=== PATIENT | male | born 1955 | race Caucasian/White ===

== ENCOUNTER → 2019-11-10 | Outpatient (CLI) | payer MEDICARE, OTHER ==
[2019-11-10 10:52] LABS: HGB 13.5 gm/dL (13.0-17.5); MCH 29.4 pg (25.0-35.0); MCHC 31.4 g/dL (31.0-37.0); MCV 93.7 fL (80.0-100.0); Mean Platelet Volume 8.5; Platelet Count 249 k/uL (150-450); RBC 4.59 m/uL (4.30-5.90); RDW 13.9 % (11.5-15.5); WBC 8.2 k/uL (3.8-10.6)
[2019-11-10 11:01] LABS: African American GFR (CKD) >90 (>60 ml/min/1.73 sqM); Blood Urea Nitrogen 16 mg/dL (9-20); Magnesium 1.6 mg/dL (1.6-2.3); Non-African American GFR(CKD) >90 (>60 ml/min/1.73 sqM)
== END | disposition home or self-care (01) ==
LOC: LABPAT 09:44
PROVIDERS: ATTEND Internal Medicine Cardiovascular Disease
DX: Z01.818 Encounter for other preprocedural examination (principal); I20.0 Unstable angina
CPT/HCPCS: 36415; 82565; 83735; 84520; 85027

== ENCOUNTER → 2019-11-11 | Day surgery (SDC) | payer MEDICARE, OTHER ==
[2019-11-10 11:01] VITALS: BMI 41.9
[~2019-11-11] MED LIST: ALPRAZolam 0.25 MG TAB PO PRN; ALPRAZolam 0.5 MG TAB PO PRN; ASPIRIN 325 MG TAB PO STA; ATORVASTATIN 80 MG TAB PO SCH; ATORVASTATIN 80 MG TAB PO STA; IOPAMIDOL-370 100ML BTL INJ ONE; ISOSORBIDE MONONITRATE ER 30 MG TAB.ER.24H PO SCH; LIDOCAINE 1% INJ 10MG/ML (20 ML MDV) ONE; LIDOCAINE 1% INJ 10MG/ML (20 ML MDV) SQ ONE; METOPROLOL SUCCINATE (ER) 50 MG TAB.ER.24H PO SCH; NITROGLYCERIN SL TABS 0.4 MG TAB SUBLINGUAL PRN; RX INFO: IV CONTRAST WAS GIVEN 1 EACH MISC MISCELLANE PRN; SODIUM CHLORIDE 0.9% 1,000 ML IV ONE; SODIUM CHLORIDE 0.9% 1,000 ML IV SCH; SODIUM CHLORIDE 0.9% 1,000 ML in EMPTY BAG 1 BAG IV ONE; fentaNYL (PF) 50 MCG/ML 2 ML AMP IV ONE; fentaNYL (PF) 50 MCG/ML 2 ML AMP ONE; glipiZIDE 5 MG TAB PO STA
[2019-11-11 07:01] LABS: Glucose,Whole Blood 165 mg/dL (75-99)
[2019-11-11 07:02] VITALS: RESP 16; TEMP 98.5
[2019-11-11 07:21] LABS: ALT 26 U/L (4-49); AST 28 U/L (17-59); Cholesterol 249 mg/dL (<200); HDL Cholesterol 43 mg/dL (40-60); LDL Cholesterol,Calculated 163 mg/dL (0-99); Triglycerides 214 mg/dL (<150)
[2019-11-11] MEDS: MIDAZOLAM 2 MG/2 ML VIAL IV ONE ×2 (07:40→07:45)
--- NOTE | 2019-11-11 09:25 | LTR ---
DATE OF SERVICE: 11/11/2019 RE: Krishna Bates Dear Maribel; I performed cardiac catheterization on Krishna Bates. A detail catheterization note is enclosed for your records. This is a 64-year-old gentleman who is referred to me for evaluate stable angina, he has severe three-vessel coronary artery disease. I am going to consult cardiothoracic surgeon for bypass surgery. Thank you for giving me the privilege to participate in the care of this pleasant gentleman. Sincerely, MD AMADO Guerra / JANA: [id number] /
--- NOTE | 2019-11-11 09:25 | CC ---
CARDIAC CATHETERIZATION REPORT CARDIAC CATHETERIZATION NOTE: INDICATION: Unstable angina. PROCEDURE NOTE: After obtaining informed consent, left heart catheterization and coronary angiogram are performed via the right femoral artery using standard Belkis catheters. Patient tolerated the procedure well without any obvious immediate complications. He received moderate conscious sedation. Total sedation time was 16 minutes. FINDINGS: HEMODYNAMICS: Left ventricular end-diastolic pressure is 15 mm. There is no significant gradient across the aortic valve. LEFT VENTRICULOGRAM: Left ventriculogram is not performed. ANGIOGRAPHIC DATA: LEFT MAIN CORONARY ARTERY: Left main coronary artery appears calcified but is free of significant stenosis. It is a normal-sized vessel, divides into left anterior descending coronary artery and circumflex coronary artery. Circumflex coronary artery is a codominant system, shows an area of 50%-60% ostial stenosis and the first OM branch has a 90% ostial stenosis. LAD shows moderate diffuse disease with a 70%-80% focal stenosis in the midportion. The right coronary artery is a large dominant vessel. There are collaterals to the distal RCA from the circumflex coronary artery. There is a focal 95% stenosis in the mid RCA and a moderate area of diffuse disease more proximally. CONCLUSION: Three-vessel coronary artery disease as described above. Normal LV systolic function based on echocardiogram. PLAN: I am going to consult cardiothoracic surgeon to evaluate him for surgical revascularization. In the meantime, I will treat him with optimal medical therapy with aspirin, nitrates, beta blockers and start him on statins and Rui Inhibitors. MMODL / IJN: [id number] /
[2019-11-11 11:47] LABS: Appearance,Urine Clear (Clear); Bilirubin,Urine Negative (Negative); Blood,Urine Negative (Negative); Color,Urine Yellow; Glucose,Urine (UA) 4+ (Negative); Ketones,Urine Negative (Negative); Leukocyte Esterase,Urine Negative (Negative); Nitrite,Urine Negative (Negative); PH, Urine 6.5 (5.0-8.0); Protein,Urine Negative (Negative); Specific Gravity,Urine 1.042 (1.001-1.035); Urobilinogen,Urine <2.0 mg/dL (<2.0)
[2019-11-11 11:50] LABS: Basophils # (A) 0.1 k/uL (0-0.2); Basophils % (A) 1 %; Eosinophils # (A) 0.2 k/uL (0-0.7); Eosinophils % (A) 4 %; HCT 41.6 % (39.0-53.0); HGB 13.7 gm/dL (13.0-17.5); Lymphocytes # (A) 1.9 k/uL (1.0-4.8); Lymphocytes % (A) 29 %; MCH 30.8 pg (25.0-35.0); MCV 93.6 fL (80.0-100.0); Mean Platelet Volume 8.3; Monocytes # (A) 0.3 k/uL (0-1.0); Monocytes % (A) 5 %; Neutrophils % (A) 61 %; Platelet Count 215 k/uL (150-450); RBC 4.44 m/uL (4.30-5.90); WBC 6.6 k/uL (3.8-10.6)
[2019-11-11 12:01] LABS: Partial Thromboplastin Time 24.7 sec (22.0-30.0); Prothrombin Time 10.3 sec (9.0-12.0)
[2019-11-11 12:18] LABS: ALT 24 U/L (4-49); AST 30 U/L (17-59); African American GFR (CKD) >90 (>60 ml/min/1.73 sqM); Albumin 4.1 g/dL (3.5-5.0); Alkaline Phosphatase 77 U/L (38-126); Anion Gap 7 mmol/L; Blood Urea Nitrogen 17 mg/dL (9-20); Carbon Dioxide 25 mmol/L (22-30); Chloride 105 mmol/L (98-107); Glucose 242 mg/dL (74-99); Magnesium 1.6 mg/dL (1.6-2.3); Non-African American GFR(CKD) >90 (>60 ml/min/1.73 sqM); Potassium 4.3 mmol/L (3.5-5.1); Sodium 137 mmol/L (137-145); Total Bilirubin 0.6 mg/dL (0.2-1.3); Total Protein 6.7 g/dL (6.3-8.2)
--- NOTE | 2019-11-11 12:57 | XR ---
EXAMINATION TYPE: XR chest 2V DATE OF EXAM: 11/11/2019 COMPARISON: NONE TECHNIQUE: PA and lateral views submitted. HISTORY: Preop FINDINGS: The lungs are clear and there is no pneumothorax, pleural effusion, or focal pneumonia. Atheroscler otic change of the aorta. Biapical pleural thickening. Heart size normal. Subsegmental changes at bot h lung bases. Coarsened interstitium. Pleural-based thickening noted bilaterally greater on the left. IMPRESSION: 1. Basilar atelectasis favored over pneumonia correlate clinically. Coarsened interstitium could repr esent chronic interstitial lung disease rather than venous congestion or interstitial pneumonitis cor relate clinically.
--- NOTE | 2019-11-11 13:53 | US ---
EXAMINATION TYPE: US carotid duplex BILAT DATE OF EXAM: 11/11/2019 COMPARISON: NONE CLINICAL HISTORY: Pre-Op Cardiac Surgery. Preop heart surgery EXAM MEASUREMENTS: RIGHT: Peak Systolic Velocity (PSV) cm/sec ----- Right CCA: 71.1 ----- Right ICA: 108.1 ----- Right ECA: 114.5 ICA/CCA ratio: 1.5 RIGHT: End Diastole cm/sec ----- Right CCA: 15.9 ----- Right ICA: 16.0 ----- Right ECA: 14.4 LEFT: Peak Systolic Velocity (PSV) cm/sec ----- Left CCA: 79.0 ----- Left ICA: 80.6 ----- Left ECA: 155.5 ICA/CCA ratio: 1.0 LEFT: End Diastole cm/sec ----- Left CCA: 24.1 ----- Left ICA: 28.9 ----- Left ECA: 15.6 VERTEBRALS (direction of flow): Right Vertebral: Antegrade Left Vertebral: Antegrade Rhythm: Normal No significant stenosis seen IMPRESSION: 1. No significant hemodynamic stenosis. There is intimal thickening and areas of focal atheroscleroti c plaque 2. Incidental note made of thyroid nodules consider dedicated thyroid ultrasound. Criteria for Assigning % of Stenosis / Diameter reduction (Estimation based on the indirect measurements of the internal carotid artery velocities (ICA PSV). 1. Normal (no stenosis)=ICA PSV < 125 cm/s: ratio < 2.0: ICA EDV<40 cm/s. 2. Less than 50% stenosis=ICA PSV < 125 cm/s: ratio < 2.0: ICA EDV<40 cm/s. 3. 50 to 69% stenosis=ICA PSV of 125 to 230 cm/s: ration 2.0 ? 4.0: ICA EDV 40-100 cm/s. 4. Greater than 70% stenosis to near occlusion= ICA PSV > 230 cm/s: ratio > 4.0: ICA EDV > 100 cm/s. 5. Near occlusion= ICA PSV velocities may be low or undetectable: variable ratio and ICA EDV. 6. Total occlusion=unable to detect flow.
[2019-11-11 14:27] VITALS: BP 156/83; PULSE 78
--- NOTE | 2019-11-11 16:30 | P.GSCN ---
History of Present Illness Consult date: 11/11/19 Reason for Consult: Symptomatic multivessel coronary artery disease, unstable angina, evaluation for myocardial revascularization surgery. Requesting physician: Vick Iqbal History of present illness: This is a 64-year-old who is followed by Dr. Villanueva on a patient bases. He has a past medical history significant for hypertension, hyperlipidemia, diabetes mellitus type 2 in which he takes metformin, obesity, osteoarthritis and current every day smoker. Recently, the patient reports that he has been having some chest pain with activity. During the episodes of chest pain he has also had some shortness of breath and was relieved with periods of rest. He denies any complaints of nausea, vomiting, recent fever, chills, presyncope, syncope, orthopnea or edema. Due to his symptoms he sought medical attention at his primary care office and was subsequently referred to Dr. Iqbal from [facility]. A 2-D echocardiogram was completed yesterday 11/10/[address] Iqbal [address] office which showed the patient's left ventricle to be normal in size with a normal systolic function, intermediate diastolic dysfunction, an ejection fraction of 60%, mild mitral valve regurgitation, and mild tricuspid valve r egurgitation. Given the patient's multiple coronary artery risk factors and symptoms suggestive of unstable angina, he was recommended to undergo an elective heart catheterization which was performed today 11/11/2019. The heart catheterization results demonstrated a 50-60% ostial stenosis of his circumflex coronary artery, a 90% ostial stenosis of his obtuse marginal #1 coronary artery, a 70-80% focal stenosis in the midportion of his left anterior descending coronary artery and a 95% stenosis to his mid right coronary artery. The heart catheterization results were reviewed with the patient and his daughter by Dr. Iqbal and due to the findings on the cardiac catheterization a consult was placed to Dr. Valentin Scales for further evaluation and treatment recommendations including myocardial revascularization surgery. Review of Systems A 14 point review of systems was completed and was negative except as mentioned in the HPI. Past Medical History Past Medical History: Chest Pain / Angina, Diabetes Mellitus, Hyperlipidemia, Hypertension, Osteoarthritis (OA) Additional Past Medical History / Comment(s): panic attack History of Any Multi-Drug Resistant Organisms: None Reported Past Surgical History: Hernia Repair (Bilateral Inguinal hernia repairs), Joint Replacement Additional Past Surgical History / Comment(s): hemorrhoidectomy, rosa knee replacements Past Anesthesia/Blood Transfusion Reactions: No Reported Reaction Additional Psychological History / Comment(s): History of a panic attack around 2-3 years ago Smoking Status: Current every day smoker (Smokes about a pack of cigarettes every 1-2 days) Past Alcohol Use History: None Reported Past Drug Use History: None Reported - Past Family History Mother Family Medical History: Neurologic Disorder (Alzheimer's) Father Additional Family Medical History / Comment(s): Father from a work- related injury. Medications and Allergies Home Medications Medication Instructions Recorded Confirmed Type Aspirin 81 mg PO DAILY 11/10/19 11/11/19 History Losartan Potassium [Cozaar] 100 mg PO DAILY 11/10/19 11/11/19 History Meloxicam [Mobic] 7.5 mg PO DAILY 11/10/19 11/11/19 History Nitroglycerin Sl Tabs [Nitrostat] 0.4 mg SUBLINGUAL Q5M PRN 11/10/19 11/10/19 History metFORMIN HCL [Glucophage] 1,000 mg PO BID 11/10/19 11/11/19 History Atorvastatin [Lipitor] 80 mg PO HS 11/11/19 11/11/19 History Isosorbide Mononitrate ER [Imdur] 30 mg PO DAILY 11/11/19 11/11/19 History Metoprolol Succinate [Toprol XL] 50 mg PO DAILY 11/11/19 11/11/19 History Allergies Allergy/AdvReac Type Severity Reaction Status Date / Time No Known Allergies Allergy Verified 11/10/19 10:33 Surgical - Exam Vital Signs Temp Pulse Resp BP Pulse Ox 98.5 F 87 16 157/88 98 11/11/19 06:49 11/11/19 06:49 11/11/19 06:49 11/11/19 06:49 11/11/19 06:49 - General well developed, well nourished, no distress, no pain, obese - Eyes PERRL, normal ocular movement, no icteric - ENT Edentulous normal pinna, normal nares, normal mucosa, no hearing loss, no congestion - Neck no masses, no bruits, trachea midline, no venous distension - Respiratory Lung sounds are essentially clear throughout. No wheezes, rhonchi or crackles. Respirations are symmetrical and nonlabored. - Cardiovascular Regular rhythm and rate. S1 and S2 present, negative for S3, gallop or murmur. Peripheral pulses palpable. No edema present. - Abdomen Abdomen is soft, nontender and nondistended. Active bowel sounds present in all 4 abdominal quadrants. No guarding or rigidity. No organomegaly appreciated. - Genitourinary Deferred - Rectum Deferred - Integumentary no rash, no growths, no abnormal pigmentation - Neurologic Cranial nerves II through XII intact. normal coordination, normal sensation - Musculoskeletal normal gait, normal posture - Psychiatric oriented to time, oriented to person, oriented to place, speech is normal, memory intact Results - Labs 11/11/19 11:20 11/11/19 11:20 Abnormal Lab Results - Last 24 Hours (Table) 11/11/19 11/11/19 Range/Units 06:58 07:00 POC Glucose (mg/dL) 165 H (75-99) mg/dL Triglycerides 214 H (<150) mg/dL Cholesterol 249 H (<200) mg/dL LDL Cholesterol, Calc 163 H (0-99) mg/dL Diabetes panel 11/11/19 Range/Units 07:00 AST 28 (17-59) U/L ALT 26 (4-49) U/L Triglycerides 214 H (<150) mg/dL HDL Cholesterol 43 (40-60) mg/dL Adrenal panel 11/11/19 Range/Units 07:00 AST 28 (17-59) U/L ALT 26 (4-49) U/L - Imaging Additional studies: The cardiac catheterization films were reviewed by Dr. Valentin Scales. Assessment and Plan Assessment: 1. Symptomatic multivessel coronary artery disease 2. Unstable angina 3. Hypertension 4. Hyperlipidemia 5. Diabetes mellitus type 2, on metformin at home 6. Osteoarthritis 7. Current every day smoker Plan: The patient was seen and examined at his bedside in the extended stay unit. His chart and diagnostics were reviewed. The usual preoperative course of myocardia l revascularization surgery was discussed in detail with the patient and his daughter, all questions were answered. His case was discussed in detail with Dr. Valentin Scales from cardiothoracic surgery. Preoperative testing was initiated as well as preoperative teaching, the patient was given a binder heart surgery: Road to a healthy heart. Continue to maximize medical therapy with aspirin, statin, ARB, beta js and imdur. Once the patient is able to ambulate. A 5 m walk test was completed by cardiac rehab, time 1:5.12 seconds, time 2: 4.16 seconds, time 3:3.93 seconds. Once his preoperative testing has been completed a STS risk score will be calculated and discussed with the patient by Dr. Scales. The patient was seen and examined by Dr. Valentin Scales, treatment options were discussed with the patient including risks and benefits of myocardial revascularization surgery. Knowing and understanding the risks of myocardial revascularization surgery he wishes to proceed with an elective coronary artery bypass grafting surgery which will be scheduled on 11/17/2019 to be performed by Dr. Scales. Thank you Dr. Iqbal for this consult and we will look for to working with you in the care of this patient. Time with Patient: Greater than 30
[2019-11-11 20:28] LABS: Hepatitis A Antibody IgM Non-Reactive (Non-Reactive); Hepatitis B Core IgM Non-Reactive (Non-Reactive); Hepatitis B Surface Antigen Non-Reactive (Non-Reactive); Hepatitis C IgG Antibody Non-Reactive (Non-Reactive)
--- NOTE | 2019-11-12 09:43 | CT ---
EXAMINATION TYPE: CT chest wo con DATE OF EXAM: 11/11/2019 COMPARISON: None HISTORY: Preoperative cardiac surgery CT DLP: 433.80 mGycm, Automated exposure control for dose reduction was used. CONTRAST: Performed injected with 0 mL of Isovue 300. TECHNIQUE: Axial images were obtained at 5 mm thick sections. Reconstructed images are reviewed on [employer] computer in the coronal plane. FINDINGS: Portion of the thyroid visualized is normal. No suspicious lung nodules or focal infiltrates are present. No enlarged mediastinal or hilar adenopathy is evident. The ascending aorta diameter at the level o f the main pulmonary artery is 2.6 cm. The main pulmonary artery diameter at the bifurcation is 2.5 cm. Coronary artery calcification is present. There is some fat in the paraspinal region at the lower lung field. No underlying suspicious masses identified. Limited CT sections are obtained through the upper abdomen. There is a 1.5 cm hyperdensity at the sup erior pole left kidney. IMPRESSIONS: 1. No suspicious acute changes. 2. Hyperdense area in the superior pole left kidney. Follow-up with ultrasound.
== END ==
LOC: CATHCVL 06:31
PROVIDERS: ATTEND Internal Medicine Cardiovascular Disease
DX: I25.110 Atherosclerotic heart disease of native coronary artery with unstable angina pectoris (principal); E11.9 Type 2 diabetes mellitus without complications; I10 Essential (primary) hypertension; E66.9 Obesity, unspecified; F41.0 Panic disorder [episodic paroxysmal anxiety]; E78.5 Hyperlipidemia, unspecified; M19.90 Unspecified osteoarthritis, unspecified site; F17.210 Nicotine dependence, cigarettes, uncomplicated; Z01.810 Encounter for preprocedural cardiovascular examination; Z79.84 Long term (current) use of oral hypoglycemic drugs; Z79.1 Long term (current) use of non-steroidal anti-inflammatories (NSAID); Z79.82 Long term (current) use of aspirin; Z79.899 Other long term (current) drug therapy; Z96.653 Presence of artificial knee joint, bilateral; Z98.890 Other specified postprocedural states; Z81.8 Family history of other mental and behavioral disorders; Z82.3 Family history of stroke; Z68.33 Body mass index [BMI] 33.0-33.9, adult
CPT/HCPCS: 94150; 93458; 86900; 86901; 80061; 80053; 80074; 84443; 83735; 84450; 84460; 85025; 85610; 85730; 86850; 86920; 81003; 87070; 83036; 71046; 93930; 93970; 93880; 71250; C1769 ×2; C1760; C1894; J2250; J2001; J3010; Q9967

== ENCOUNTER → 2019-11-12 | Outpatient (CLI) | payer MEDICARE, OTHER | END | disposition home or self-care (01) | LOC: RADUSWWP 10:34 | PROVIDERS: ATTEND Nurse Practitioner Family | DX: Z01.818 Encounter for other preprocedural examination (principal) | CPT/HCPCS: 93923 ==

== ENCOUNTER 2019-11-17 06:12 | Inpatient (IN) | payer MEDICARE, OTHER ==
[~2019-11-17 06:12] MED LIST changes: +ALBUMIN HUMAN 25% 50 ML IV ONE; +ALBUMIN HUMAN 5% 500 ML IVPB ONE; -ALPRAZolam 0.25 MG TAB PO PRN; -ALPRAZolam 0.5 MG TAB PO PRN; +ASPIRIN 325 MG TAB PO ONE; -ASPIRIN 325 MG TAB PO STA; +ATORVASTATIN 10 MG TAB PO ONE; -ATORVASTATIN 80 MG TAB PO SCH; -ATORVASTATIN 80 MG TAB PO STA; +CALCIUM CHLORIDE 100 MG/ML 10 ML SYRINGE IV ONE; +CHLORHEXIDINE GLUCONATE 15 ML CUP MUCOUS MEM ONE; +DEXTROSE 5% IN WATER 1,000 ML with POTASSIUM CHLORIDE 110 MEQ, MAGNESIUM SULFATE 16 MEQ... IV ONE; +DEXTROSE 5% IN WATER 1,000 ML with POTASSIUM CHLORIDE 25 MEQ, SODIUM CHLORIDE 2.5MEQ/ML... IRRIGATION ONE; +DILTIAZEM 125 MG in SODIUM CHLORIDE 0.9% 100 ML IV ONE; +HEPARIN SODIUM 1,000 UN/ML (10ML VL) IV ONE; +HEPARIN SODIUM,PORCINE 5,000 UNIT in SODIUM CHLORIDE 0.9% 500 ML 500 ML IV ONE; +INSULIN REGULAR 100 UNIT in SODIUM CHLORIDE 0.9% 100 ML IV ONE; -IOPAMIDOL-370 100ML BTL INJ ONE; -ISOSORBIDE MONONITRATE ER 30 MG TAB.ER.24H PO SCH; +LACTATED RINGERS 1,000 ML IV ONE; -LIDOCAINE 1% INJ 10MG/ML (20 ML MDV) ONE; -LIDOCAINE 1% INJ 10MG/ML (20 ML MDV) SQ ONE; +MAGNESIUM SULFATE MG 500 MG/ML IV ONE; +MANNITOL 25% 12.5 GM/50 ML VIAL IV ONE; -METOPROLOL SUCCINATE (ER) 50 MG TAB.ER.24H PO SCH; +METOPROLOL TARTRATE 12.5 MG TAB PO ONE; -NITROGLYCERIN SL TABS 0.4 MG TAB SUBLINGUAL PRN; +NITROGLYCERIN-D5W PMX 25 MG/250 ML BTL IV ONE; +NITROGLYCERIN-D5W PMX 50 MG in DEXTROSE/WATER 1 250ML.BAG IV ONE; +NOREPINEPHRINE 4 MG in SODIUM CHLORIDE 0.9% 250 ML IV ONE; +PAPAVERINE 360 MG in SODIUM CHLORIDE 0.9% 90 ML IV ONE; +PHENYLEPHRINE 10 MG/ML VIAL IV ONE; +PHENYLEPHRINE 40 MG in SODIUM CHLORIDE 0.9% 250 ML IV ONE; +PROTAMINE SULFATE 10 MG/ML 25 ML VIAL IV ONE; +PROTAMINE SULFATE 250 MG in EMPTY BAG 1 BAG IV ONE; -RX INFO: IV CONTRAST WAS GIVEN 1 EACH MISC MISCELLANE PRN; +SODIUM BICARB 8.4% 50 ML SYR (1 MEQ/ML) IV ONE; -SODIUM CHLORIDE 0.9% 1,000 ML IV SCH; -SODIUM CHLORIDE 0.9% 1,000 ML in EMPTY BAG 1 BAG IV ONE; +TRANEXAMIC ACID 2,000 MG in SODIUM CHLORIDE 0.9% 80 ML IV ONE; +VANCOMYCIN 1,000 MG VIAL MISCELLANE ONE; +ceFAZolin 1,000 MG in SODIUM CHLORIDE 0.9% IRRIGATIO 1,000 ML IRRIGATION ONE; +ceFAZolin 2,000 MG in SODIUM CHLORIDE 0.9% 30 ML IVPB ONE; -fentaNYL (PF) 50 MCG/ML 2 ML AMP IV ONE; -fentaNYL (PF) 50 MCG/ML 2 ML AMP ONE; -glipiZIDE 5 MG TAB PO STA; +propofoL 1,000 MG/100 ML VIAL IV ONE
[2019-11-17 06:40] LABS: Glucose,Whole Blood 136 mg/dL (75-99)
[2019-11-17] MEDS ORDERED: HEPARIN SODIUM,PORCINE 10,000 UNIT/ML 1 ML VIAL ONE (07:45)
[2019-11-17] MEDS ORDERED: MIDAZOLAM 2 MG/2 ML VIAL ONE (07:45)
[2019-11-17] MEDS ORDERED: SODIUM CHLORIDE 0.9% IRRIG 1,000 ML BTL IRRIGATION ONE (07:45)
[2019-11-17] MEDS ORDERED: fentaNYL (PF) 50 MCG/ML 50 ML VIAL ONE (07:45)
[2019-11-17] MEDS ORDERED: VECURONIUM 10 MG VIAL IV ONE (07:45)
[2019-11-17] MEDS ORDERED: fentaNYL (PF) 50 MCG/ML 2 ML AMP IVP ONE (07:45)
[2019-11-17] MEDS ORDERED: INSULIN REGULAR 100 UNIT/ML VIAL ONE (07:45)
[2019-11-17] MEDS ORDERED: AMIODARONE 50 MG/ML 3 ML VIAL IV ONE (07:45)
[2019-11-17] MEDS ORDERED: MIDAZOLAM 2 MG/2 ML VIAL IVP ONE (07:45)
[2019-11-17] MEDS ORDERED: PROTAMINE SULFATE 10 MG/ML 25 ML VIAL IV ONE (07:45)
[2019-11-17] MEDS ORDERED: ELECTROLYTE-R (PH 7.4) 1,000 ML IV.SOLN IV ONE (07:45)
[2019-11-17] MEDS ORDERED: NITROGLYCERIN-D5W PMX 50 MG/250 ML BOTTLE IV ONE (07:45)
[2019-11-17] MEDS ORDERED: LIDOCAINE 2% SYG (PF) 100 MG/5 ML ONE (07:45)
[2019-11-17] MEDS ORDERED: CALCIUM CHLORIDE 100 MG/ML 10 ML SYRINGE ONE (07:45)
[2019-11-17] MEDS ORDERED: MAGNESIUM SULFATE 4 MEQ/ML 10ML VIAL ONE (07:45)
[2019-11-17] MEDS ORDERED: fentaNYL (PF) 50 MCG/ML 2 ML AMP ONE (07:45)
[2019-11-17] MEDS ORDERED: PROPOFOL 10 MG/ML 20 ML VIAL IV ONE (07:45)
[2019-11-17 08:40] LABS: ABG Base Excess 1.1 mmol/L; ABG Glucose Whole Blood 144 mg/dL (75-99); ABG HCO3 27 mmol/L (21-25); ABG Hematocrit 38 % (34.0-46.0); ABG Ionized Calcium 4.4 mg/dL (4.5-5.3); ABG Lactic Acid Whole Blood 1.3 mmol/L (0.5-1.6); ABG Oxygen Saturation 99.3 % (94-97); ABG PCO2 45 mmHg (35-45); ABG PH 7.38 (7.35-7.45); ABG PO2 165 mmHg (83-108); ABG Potassium Whole Blood 4.1 mmol/L (3.4-4.5); ABG Sodium Whole Blood 140 mmol/L (135-146); ABG TCO2 28 mmol/L (19-24)
[2019-11-17 09:51] LABS: ABG Base Excess -0.8 mmol/L; ABG Glucose Whole Blood 148 mg/dL (75-99); ABG HCO3 26 mmol/L (21-25); ABG Hematocrit 38 % (34.0-46.0); ABG Ionized Calcium 4.4 mg/dL (4.5-5.3); ABG Lactic Acid Whole Blood 1.6 mmol/L (0.5-1.6); ABG Oxygen Saturation 99.4 % (94-97); ABG PCO2 53 mmHg (35-45); ABG PO2 202 mmHg (83-108); ABG Potassium Whole Blood 4.4 mmol/L (3.4-4.5); ABG Sodium Whole Blood 140 mmol/L (135-146); ABG TCO2 28 mmol/L (19-24)
[2019-11-17 10:55] LABS: ABG Base Excess -1.9 mmol/L; ABG Glucose Whole Blood 216 mg/dL (75-99); ABG HCO3 25 mmol/L (21-25); ABG Hematocrit 28 % (34.0-46.0); ABG Oxygen Saturation 96.2 % (94-97); ABG PCO2 50 mmHg (35-45); ABG PH 7.31 (7.35-7.45); ABG PO2 87 mmHg (83-108); ABG Sodium Whole Blood 133 mmol/L (135-146); ABG TCO2 26 mmol/L (19-24)
[2019-11-17 11:08] LABS: ABG Base Excess -2.8 mmol/L; ABG Glucose Whole Blood 243 mg/dL (75-99); ABG HCO3 23 mmol/L (21-25); ABG Hematocrit 27 % (34.0-46.0); ABG Oxygen Saturation 99.7 % (94-97); ABG PCO2 45 mmHg (35-45); ABG PH 7.32 (7.35-7.45); ABG PO2 300 mmHg (83-108); ABG Sodium Whole Blood 133 mmol/L (135-146); ABG TCO2 25 mmol/L (19-24)
[2019-11-17 11:47] LABS: ABG Base Excess -2.5 mmol/L; ABG Glucose Whole Blood 245 mg/dL (75-99); ABG HCO3 23 mmol/L (21-25); ABG Hematocrit 26 % (34.0-46.0); ABG Ionized Calcium 3.9 mg/dL (4.5-5.3); ABG Oxygen Saturation 99.8 % (94-97); ABG PCO2 45 mmHg (35-45); ABG PH 7.33 (7.35-7.45); ABG PO2 322 mmHg (83-108); ABG Sodium Whole Blood 135 mmol/L (135-146); ABG TCO2 25 mmol/L (19-24)
[2019-11-17 13:25] LABS: Glucose,Whole Blood 198 mg/dL (75-99)
[2019-11-17 14:06] LABS: ABG Lactic Acid Whole Blood 2.7 mmol/L (0.5-1.6); ABG Potassium Whole Blood 6.3 mmol/L (3.4-4.5)
[2019-11-17 14:07] LABS: ABG Lactic Acid Whole Blood 3.2 mmol/L (0.5-1.6); ABG Potassium Whole Blood 6.2 mmol/L (3.4-4.5)
[2019-11-17 14:08] LABS: ABG Lactic Acid Whole Blood 3.8 mmol/L (0.5-1.6)
[2019-11-17 14:32] LABS: Glucose,Whole Blood 129 mg/dL (75-99)
[2019-11-17] MEDS ORDERED: IPRATROPIUM-ALBUTEROL 3 ML NEB INHALATION PRN (14:37)
[2019-11-17] MEDS ORDERED: AMIODARONE 360 MG in DEXTROSE 5% IN WATER 200 ML IV PRN ×2 (14:37)
[2019-11-17] MEDS ORDERED: DEXTROSE 5% IN WATER 100 ML with AMIODARONE 150 MG IV PRN (14:37)
[2019-11-17] MEDS ORDERED: Phosphorus Replacement Protoco 1 EACH MISC MISCELLANE PRN (14:37)
[2019-11-17] MEDS ORDERED: ONDANSETRON 4 MG/2 ML VIAL IVP PRN (14:37)
[2019-11-17] MEDS ORDERED: NITROGLYCERIN-D5W PMX 50 MG in DEXTROSE/WATER 1 250ML.BAG IV SCH (14:37)
[2019-11-17] MEDS ORDERED: ALBUMIN HUMAN 5% 250 ML in EMPTY BAG 1 BAG IVPB PRN (14:37)
[2019-11-17] MEDS ORDERED: Magnesium Replacement Protocol 1 EACH MISC MISCELLANE PRN (14:37)
[2019-11-17] MEDS ORDERED: Potassium Replacement Protocol 1 EACH MISC MISCELLANE PRN (14:37)
[2019-11-17 14:49] LABS: ABG Base Excess -0.4 mmol/L; ABG HCO3 26 mmol/L (21-25); ABG Oxygen Saturation 99.5 % (94-97); ABG PCO2 57 mmHg (35-45); ABG PH 7.27 (7.35-7.45); ABG PO2 212 mmHg (83-108); ABG TCO2 28 mmol/L (19-24)
[2019-11-17 14:51] LABS: Allen Test Performed? no
[2019-11-17] MEDS ORDERED: CALCIUM GLUCONATE 2 GM in SODIUM CHLORIDE 0.9% 100 ML IVPB PRN (15:00)
[2019-11-17 15:04] LABS: Basophils % (A) 0 %; Eosinophils # (A) 0.1 k/uL (0-0.7); Eosinophils % (A) 0 %; HCT 29.8 % (39.0-53.0); Ionized Calcium 4.3 mg/dL (4.5-5.3); Lymphocytes # (A) 1.3 k/uL (1.0-4.8); Lymphocytes % (A) 7 %; MCH 30.1 pg (25.0-35.0); MCV 94.1 fL (80.0-100.0); Mean Platelet Volume 8.2; Monocytes # (A) 1.1 k/uL (0-1.0); Monocytes % (A) 6 %; Neutrophils # (A) 17.3 k/uL (1.3-7.7); Neutrophils % (A) 87 %; Platelet Count 135 k/uL (150-450); RBC 3.17 m/uL (4.30-5.90); RDW 13.9 % (11.5-15.5); WBC 19.9 k/uL (3.8-10.6)
--- NOTE | 2019-11-17 15:04 | XR ---
EXAMINATION TYPE: XR chest 1V portable DATE OF EXAM: 11/17/2019 COMPARISON: Prior chest x-ray 11/11/2019 HISTORY: Postop cardiac surgery TECHNIQUE: Single frontal view of the chest is obtained. FINDINGS: Patient is post median sternotomy. Endotracheal tube, NG tube, right jugular central venou s catheter, left chest tube, median sternal drains are overlying appropriate positions, epicardial pa cing leads are in place. Patient is post left atrial appendage clipping placement. Lung volumes are l ow, there is no evident pneumothorax. Subcutaneous emphysema present over the left lateral chest soft tissues. Probable subsegmental basilar atelectatic changes at the lung bases, there is blunting the costophrenic angles, there may be small effusions. Heart size is within normal limits. IMPRESSION: Satisfactory postoperative chest x-ray as described.
[2019-11-17 15:09] LABS: HGB 9.5 gm/dL (13.0-17.5)
[2019-11-17 15:10] LABS: Albumin 2.9 g/dL (3.5-5.0); Calcium 7.2 mg/dL (8.4-10.2); Magnesium 2.3 mg/dL (1.6-2.3); Total Bilirubin 0.6 mg/dL (0.2-1.3); Total Protein 4.7 g/dL (6.3-8.2)
[2019-11-17 15:11] LABS: INR 1.2 (<1.2)
[2019-11-17] MEDS: DILTIAZEM 125 MG in SODIUM CHLORIDE 0.9% 100 ML IV SCH (15:11)
[2019-11-17 15:12] LABS: Prothrombin Time 11.9 sec (9.0-12.0)
[2019-11-17] MEDS: LACTATED RINGERS 1,000 ML IV SCH (15:12)
[2019-11-17] MEDS ORDERED: MUPIROCIN 2% OINT 22 GM TUBE NASAL ONE (15:30)
[2019-11-17 15:37] LABS: Glucose,Whole Blood 117 mg/dL (75-99)
[2019-11-17] MEDS: INSULIN REGULAR 100 UNIT in SODIUM CHLORIDE 0.9% 100 ML IV SCH (15:50)
[2019-11-17] MEDS ORDERED: IPRATROPIUM-ALBUTEROL 3 ML NEB INHALATION SCH (16:00)
[2019-11-17] MEDS ORDERED: ACETAMINOPHEN IV (For NPO) 1,000 MG in EMPTY BAG 1 BAG IVPB SCH (16:00)
[2019-11-17] MEDS ORDERED: POTASSIUM BICARBONATE/CIT AC 20 MEQ TABLET.EFF NG-TUBE SCH (16:00)
[2019-11-17] MEDS: MORPHINE SULFATE 2 MG/ML SYRINGE IVP PRN ×2 (16:02→20:03)
[2019-11-17] MEDS: CLEVIDIPINE BUTYRATE 25 MG in EMPTY BAG 1 BAG IV ONE ×3 (16:13→20:10)
[2019-11-17] MEDS: ACETAMINOPHEN IV (For NPO) 1,000 MG in EMPTY BAG 1 BAG IVPB SCH ×2 (16:18→23:48)
[2019-11-17 16:52] LABS: Glucose,Whole Blood 136 mg/dL (75-99)
[2019-11-17 18:15] LABS: Glucose,Whole Blood 149 mg/dL (75-99)
[2019-11-17] MEDS: KETOROLAC 15 MG/ML 1 ML VIAL IVP SCH (18:22)
[2019-11-17 18:57] LABS: Glucose,Whole Blood 171 mg/dL (75-99)
[2019-11-17 19:22] LABS: ABG Base Excess -1.5 mmol/L; ABG HCO3 24 mmol/L (21-25); ABG Oxygen Saturation 95.8 % (94-97); ABG PCO2 43 mmHg (35-45); ABG PH 7.35 (7.35-7.45); ABG PO2 80 mmHg (83-108); ABG TCO2 25 mmol/L (19-24)
[2019-11-17 19:25] LABS: Allen Test Performed? no
[2019-11-17 19:50] LABS: Basophils % (A) 0 %; Eosinophils % (A) 0 %; HCT 32.1 % (39.0-53.0); HGB 10.4 gm/dL (13.0-17.5); Lymphocytes # (A) 0.7 k/uL (1.0-4.8); Lymphocytes % (A) 4 %; MCH 30.4 pg (25.0-35.0); MCHC 32.2 g/dL (31.0-37.0); MCV 94.2 fL (80.0-100.0); Mean Platelet Volume 9.5; Monocytes % (A) 6 %; Neutrophils # (A) 14.8 k/uL (1.3-7.7); Neutrophils % (A) 89 %; Platelet Count 164 k/uL (150-450); RBC 3.41 m/uL (4.30-5.90); RDW 13.9 % (11.5-15.5); WBC 16.6 k/uL (3.8-10.6)
[2019-11-17] MEDS: CLEVIDIPINE BUTYRATE 25 MG in EMPTY BAG 1 BAG IV SCH (20:00)
[2019-11-17 20:25] LABS: Glucose,Whole Blood 183 mg/dL (75-99)
[2019-11-17] MEDS ORDERED: CLEVIDIPINE BUTYRATE 25 MG/50 ML VIAL IV ONE (20:31)
[2019-11-17] MEDS ORDERED: CHLORHEXIDINE GLUCONATE 15 ML CUP MUCOUS MEM SCH (21:00)
[2019-11-17] MEDS: IPRATROPIUM-ALBUTEROL 3 ML NEB INHALATION SCH ×2 (21:24→21:27)
[2019-11-17 21:39] LABS: Glucose,Whole Blood 175 mg/dL (75-99)
[2019-11-17] MEDS: AMIODARONE 300 MG in DEXTROSE 5% IN WATER 250 ML IV PRN ×2 (21:39)
[2019-11-17 22:18] LABS: Glucose,Whole Blood 172 mg/dL (75-99)
--- NOTE | 2019-11-17 22:24 | CONS ---
CONSULTATION This is a 64-year-old male who was initially followed by Dr. Villanueva. He has a history of hypertension, hyperlipidemia, diabetes, osteoarthritis, and he smokes cigarettes. More recently, he has been having chest pain with activity. In addition, he had shortness of breath, relieved by rest. He denied any nausea, vomiting, fever, chills, presyncope, syncope, orthopnea, or any edema. He was referred by Dr. Iqbal from [facility]. The patient's left ventricle was normal in size with a normal systolic function. Ejection fraction was 60%. He had mild mitral valve regurgitation and mild tricuspid valve regurgitation. The patient underwent catheterization which revealed a 50-60 percent ostial stenosis of the circumflex coronary artery, 90% ostial stenosis of his obtuse marginal #1 coronary artery, a 70-80 percent focal stenosis in the midportion of his left anterior descending coronary artery and 95% stenosis to his mid right coronary artery. For that reason, the patient was referred to Dr. Scales for revascularization. The patient underwent a 4-vessel bypass today. He is currently in the ICU. He is postop day #0. Currently, he is on the ventilator. His initial settings with a volume assist-control mode rate of 14, tidal volume 450, 100%, PEEP of 5. Subsequent to his initial gases which showed a pO2 of 212, pCO2 of 57, and a pH is 7.27, the rate was increased from 14 to 18 and the FiO2 was dropped from 100-60 percent. Currently, he is on insulin drip 0.5 units an hour, propofol at 10 mics per kg per minute, nitroglycerin at 5 mcg/minute, amiodarone at 1 mg/minute and Cardizem drip of 5 mg an hour. The patient appears to be relatively stable. FAMILY HISTORY: Positive for a Mother with dementia. Father apparently from a work-related injury. MEDICAL HISTORY: Mentioned including hypertension, hyperlipidemia, diabetes, angina, osteoarthritis, panic attacks, and CAD. SURGICAL HISTORY: Includes hernia repair, joint replacement, hemorrhoidectomy. SOCIAL HISTORY: Positive for a pack of cigarettes every 1-2 days. Denies any alcohol use or illicit drug use. HOME MEDICATIONS: Included Cozaar, Mobic, nitroglycerin, metformin, Lipitor, Imdur, metoprolol. ALLERGIES: Denied. REVIEW OF SYSTEMS: Cannot be obtained as the patient is currently ventilated. His review of systems at the time of initial admission included chest pain and shortness of breath on exertion. PHYSICAL EXAMINATION: VITAL SIGNS: Current vital signs are reviewed. They include a temperature which is 95.9, heart rate which is 67, respiratory rate 18, blood pressure 101/54, mean 69, pulmonary artery pressure of 30/18, central venous pressure 15 and saturation 99%. GENERAL: He appears in no acute distress. Currently sedated. HEENT: Examination is grossly unremarkable. Orally placed endotracheal tube. NECK: Supple. Full range of motion. CARDIOVASCULAR: Examination reveals regular rhythm and rate. S1, S2 normal. LUNGS: Reveal mostly clear breath sounds. A few scattered rhonchi. ABDOMEN: Soft. No bowel sounds. EXTREMITIES are intact. SKIN: Without rash. NEUROLOGIC: Examination cannot be assessed. LABS: Reviewed. White count 19.9, hemoglobin 9.5, hematocrit 29.8, platelet count 135,000. PT was 11.9, INR 1.2, PTT is 40. Blood gases have been noted. PO2 212, pCO2 of 57, and pH is 7.27. This is before the ventilator adjustment. Sodium 139, potassium 4, chloride 106, CO2 28, anion gap 5. BUN and creatinine were 19 and 1.06. His ionized calcium was 4.3. Microbiology is negative. Chest x-ray shows postoperative changes. Medications are reviewed. ASSESSMENT: 1. Postoperative day #0, status post 4-vessel bypass grafting. 2. History of severe coronary artery disease. 3. Angina pectoris. 4. Essential hypertension. 5. Hyperlipidemia. 6. Type 2 diabetes mellitus. 7. Obesity. 8. Osteoarthritis. 9. Ongoing tobacco use with nicotine addiction. PLAN: The patient will be followed closely. We will move him towards early weaning protocol. Hopefully get him extubated within 46 hours after leaving the operating room. Vent settings have been changed. His rate was increased from 14 to 18 and FiO2 was dropped from 100-60 percent. He remains on a number of drips including insulin, propofol, nitroglycerin, amiodarone, and Cardizem. Additional recommendations and suggestions are forthcoming. MMODL / IJN: [id number] /
[2019-11-17 22:43] LABS: Basophils # (A) 0.1 k/uL (0-0.2); Basophils % (A) 0 %; Eosinophils % (A) 0 %; HCT 31.8 % (39.0-53.0); HGB 10.4 gm/dL (13.0-17.5); Lymphocytes # (A) 0.6 k/uL (1.0-4.8); Lymphocytes % (A) 5 %; MCH 30.8 pg (25.0-35.0); MCHC 32.8 g/dL (31.0-37.0); MCV 93.7 fL (80.0-100.0); Mean Platelet Volume 8.5; Monocytes # (A) 0.7 k/uL (0-1.0); Monocytes % (A) 5 %; Neutrophils # (A) 12.6 k/uL (1.3-7.7); Neutrophils % (A) 90 %; Platelet Count 160 k/uL (150-450); RDW 13.9 % (11.5-15.5)
--- NOTE | 2019-11-17 23:12 | CONS ---
CONSULTATION Mr. Bates is a 64-year-old male who underwent coronary artery bypass grafting. He has been followed by Dr. Iqbal and was seen recently in the office because of symptoms of angina pectoris. He has a history of diabetes, hypertension and hyperlipidemia as well as history of chronic tobacco use. Because of his symptoms, he underwent cardiac catheterization by Dr. Iqbal on November 10 and was found to have severe triple-vessel coronary artery disease with normal systolic function by echocardiography. He underwent coronary bypass grafting today. He is intubated and sedated at this time in the ICU. He is in sinus mechanism, on IV nitroglycerin, IV Cardizem, and he is on amiodarone because of ventricular ectopic activity. MEDICATIONS: Prior to admission, his medications included metformin, metoprolol succinate 50 mg daily, Cozaar 100 mg daily, isosorbide mononitrate 30 mg daily, Lipitor 80 mg daily and aspirin once a day. REVIEW OF SYSTEMS: Review of systems could not be obtained. PHYSICAL EXAMINATION: He is a 64-year-old male, intubated, sedated. Blood pressure 148/50. PA pressure of 30/18. Heart rate in the 60s. HEAD: Normocephalic. Eyes: Sclerae anicteric. NECK: [place] noted. LUNGS: Clear to auscultation anteriorly. HEART: Regular rate and rhythm. S1, S2. No S3. No rub appreciated. ABDOMEN: Soft. Hypoactive bowel sounds. No organomegaly. EXTREMITIES: Rui wrapping in place. LAB DATA/IMAGING: BUN and creatinine 19 and 1.06. His hemoglobin is 9.5. His chest x-ray shows no evidence of pneumothorax. IMPRESSION: 1. Status post coronary artery bypass grafting. 2. Hypertension. 3. Hyperlipidemia. 4. Diabetes mellitus. 5. Prior history of smoking. RECOMMENDATIONS: Will continue routine postoperative care. Hopefully the patient will be weaned and extubated soon and subsequently will re-initiate his oral treatment. Thank you for this consult. We will follow with you. MMODL / IJN: [id number] /
[2019-11-17 23:45] LABS: Glucose,Whole Blood 148 mg/dL (75-99)
[2019-11-18 00:22] LABS: Glucose,Whole Blood 139 mg/dL (75-99)
[2019-11-18 01:13] LABS: Glucose,Whole Blood 131 mg/dL (75-99)
[2019-11-18] MEDS: KETOROLAC 15 MG/ML 1 ML VIAL IVP SCH ×5 (01:19→23:11)
[2019-11-18] MEDS: HEPARIN SODIUM,PORCINE 5,000 UNIT/ML 1 ML VIAL SQ SCH ×4 (01:19→23:12)
[2019-11-18] MEDS ORDERED: HYDROcodone/APAP 5-325MG 1 EACH TAB PO PRN ×2 (01:31)
[2019-11-18 01:59] LABS: Glucose,Whole Blood 132 mg/dL (75-99)
[2019-11-18 03:10] LABS: Glucose,Whole Blood 138 mg/dL (75-99)
[2019-11-18] MEDS: CLEVIDIPINE BUTYRATE 25 MG in EMPTY BAG 1 BAG IV SCH (03:46)
[2019-11-18 04:02] LABS: Glucose,Whole Blood 136 mg/dL (75-99)
[2019-11-18 04:14] LABS: Basophils % (A) 0 %; Eosinophils % (A) 0 %; HCT 30.2 % (39.0-53.0); HGB 10.1 gm/dL (13.0-17.5); Lymphocytes # (A) 1.3 k/uL (1.0-4.8); Lymphocytes % (A) 10 %; MCH 31.2 pg (25.0-35.0); MCHC 33.4 g/dL (31.0-37.0); MCV 93.4 fL (80.0-100.0); Mean Platelet Volume 9.4; Monocytes # (A) 0.6 k/uL (0-1.0); Monocytes % (A) 5 %; Neutrophils # (A) 10.2 k/uL (1.3-7.7); Neutrophils % (A) 84 %; Platelet Count 141 k/uL (150-450); RBC 3.24 m/uL (4.30-5.90); WBC 12.2 k/uL (3.8-10.6)
[2019-11-18 04:21] LABS: Ionized Calcium 4.4 mg/dL (4.5-5.3)
[2019-11-18 04:32] LABS: Albumin 3.1 g/dL (3.5-5.0); Calcium 7.8 mg/dL (8.4-10.2); Magnesium 1.9 mg/dL (1.6-2.3); Potassium 4.3 mmol/L (3.5-5.1); Total Bilirubin 0.5 mg/dL (0.2-1.3)
[2019-11-18 06:17] LABS: Glucose,Whole Blood 134 mg/dL (75-99)
[2019-11-18] MEDS: MAGNESIUM SULFATE-D5W PMX 1 GM in DEXTROSE/WATER 1 100ML.BAG IVPB SCH ×2 (06:25→09:08)
[2019-11-18] MEDS: AMIODARONE 300 MG in DEXTROSE 5% IN WATER 250 ML IV PRN ×2 (06:42)
[2019-11-18] MEDS: IPRATROPIUM-ALBUTEROL 3 ML NEB INHALATION SCH ×4 (08:17→20:41)
[2019-11-18 08:31] LABS: Glucose,Whole Blood 169 mg/dL (75-99)
--- NOTE | 2019-11-18 08:57 | XR ---
EXAMINATION TYPE: XR chest 1V portable DATE OF EXAM: 11/18/2019 COMPARISON: Prior chest x-ray 11/17/2019 HISTORY: Postop cardiac surgery TECHNIQUE: Single frontal view of the chest is obtained. FINDINGS: There is been interval removal of the endotracheal and NG tube. Right jugular central veno us catheter, left chest tube, median sternal drains and overlying cardiac leads are again noted. No e vident pneumothorax. Lung volumes are low and the patient is rotated. Patchy basilar density persists . Subcutaneous emphysema has improved. IMPRESSION: Interval extubation. Expiratory rotated exam.
[2019-11-18] MEDS ORDERED: bisacodyL 10 MG SUPP RECTAL PRN (09:00)
[2019-11-18] MEDS ORDERED: METOPROLOL TARTRATE 25 MG TAB PO SCH (09:00)
[2019-11-18] MEDS ORDERED: MAGNESIUM HYDROXIDE 2,400 MG/10 ML CUP PO PRN (09:00)
[2019-11-18] MEDS ORDERED: METOPROLOL TARTRATE 12.5 MG TAB PO SCH (09:00)
[2019-11-18] MEDS ORDERED: PANTOPRAZOLE 40 MG/10 ML VIAL IVP SCH (09:00)
[2019-11-18] MEDS ORDERED: AMIODARONE 200 MG TAB PO SCH (09:00)
[2019-11-18 09:06] LABS: Glucose,Whole Blood 198 mg/dL (75-99)
[2019-11-18] MEDS: ATORVASTATIN 40 MG TAB PO SCH (09:26)
[2019-11-18] MEDS: CLOPIDOGREL 75 MG TAB PO SCH (09:26)
[2019-11-18] MEDS: ASPIRIN 325 MG TAB PO SCH (09:26)
[2019-11-18] MEDS: amLODIPine 5 MG TAB PO SCH (09:26)
--- NOTE | 2019-11-18 09:45 | P.PN ---
Subjective Progress Note Date: 11/18/19 Principal diagnosis: Symptomatic multivessel coronary artery disease with unstable angina, preserved left ventricular systolic function with EF 60%, mild mitral regurgitation and m ild tricuspid regurgitation. Previous medical history of hypertension, hyperlipidemia, type 2 diabetes mellitus with preoperative hemoglobin A1c 8%, obesity, osteoarthritis, current tobacco dependence, and mild COPD with preoperative FEV1 75% of predicted POD #1 coronary artery bypass grafting with left internal mammary artery to the left anterior descending artery, left radial artery to the first obtuse marginal artery, reverse saphenous vein graft to the second obtuse marginal artery, reverse saphenous vein graft to the posterior descending artery, endoscopic harvesting of the left radial artery, endoscopic harvesting of the right greater saphenous vein, left atrial appendage ligation with 35 mm AtriCure clip, intraoperative transesophageal echocardiogram and epi-aortic scanning Postoperative acute blood loss anemia and thrombocytopenia, expected given hemodilution and cardiopulmonary bypass pump Postoperative leukocytosis, expected, reactive The patient is currently sitting up in a recliner in the intensive care unit in no acute distress. He was successfully extubated last night at 19:57. He states pain is well controlled on current medication regimen, denies shortness of breath, his only complaint is of a little bit of lip swelling. He remains in normal sinus rhythm and hemodynamically stable on no inotropes or pressors. Right internal jugular [place], right radial arterial line, mediastinal and left pleural chest tubes all remain. No new concerns. Objective - Vital Signs Vital signs: Vital Signs Temp 99.0 F 11/18/19 08:00 Pulse 83 11/18/19 09:00 Resp 15 11/18/19 09:00 BP 135/70 11/18/19 09:00 Pulse Ox 95 11/18/19 09:00 Intake & Output 11/17/19 11/18/19 11/18/19 18:59 06:59 18:59 Intake Total 759.251 5479.659 221.655 Output Total 2849 1466 135 Balance -2203.583 147.659 86.655 Weight 105.8 kg Intake: IV 378 908 111 0.9% CO/CI 50 100 Lactated Ringers 1,000 ml 250 600 90 @ 20 mls/hr IV .Q24H [facility] Rx#:[id number] Magnesium Sulfate-D5w Pmx 100 1 gm In Dextrose/Water 1 100ml.bag @ 100 mls/hr IVPB Q1H [facility] Rx#: [id number] Pressure Bags 45 108 21 Intake, IV Titration 267.417 705.659 110.655 Amount ACETAMINOPHEN IV (For NPO 100 100 ) 1,000 mg In Empty Bag 1 bag @ 400 mls/hr IVPB Q6H [facility] Rx#:[id number] Amiodarone 300 mg In 226.25 Dextrose 5% in Water 250 ml @ 0.5 MG/MIN 25 mls/hr IV .Q10H PRN Rx#: [id number] Amiodarone 360 mg In 200 Dextrose 5% in Water 200 ml @ 1 MG/MIN 33.333 mls/ hr IV .Q6H PRN Rx#: [id number] Calcium Gluconate 2 gm In 100 Sodium Chloride 0.9% 100 ml @ 100 mls/hr IVPB ONCE PRN Rx#:[id number] Clevidipine Butyrate 25 79.533 mg In Empty Bag 1 bag @ 1 MG/HR 2 mls/hr IV .Q24H [facility] Rx#:[id number] Clevidipine Butyrate 25 0.133 0 mg In Empty Bag 1 bag @ Per Protocol IV .Q0M [facility] Rx#:[id number] Insulin Regular 100 unit 3.998 49.876 10.655 In Sodium Chloride 0.9% 100 ml @ Per Protocol IV .Q0M [facility] Rx#:[id number] Magnesium Sulfate-D5w Pmx 100 1 gm In Dextrose/Water 1 100ml.bag @ 100 mls/hr IVPB Q1H [facility] Rx#: [id number] ceFAZolin 2 gm In Sodium 50 50 Chloride 0.9% 50 ml @ 100 mls/hr IVPB Q8HR [facility] Rx# :[id number] propofoL 1,000 mg In 13.286 Empty Bag 1 bag @ Titrate IV .Q0M [facility] Rx#: [id number] Output: Chest Tube Drainage 231 528 30 Chest Tube Left Left 118 264 0 Pleural/Mediastinal Chest Tube Mediastinal 113 264 30 Drainage 28 Left Wrist 28 Urine 1418 910 105 Estimated Blood Loss 1200 ABP, PAP, CO, CI - Last Documented Arterial Blood Pressure 146/55 Pulmonary Artery Pressure 27/5 Cardiac Output 6.3 Cardiac Index 2.9 - Constitutional General appearance: Present: cooperative, no acute distress - Respiratory Details: Lungs sounds diminished bilaterally. Respirations even, nonlabored. Currently on 8 L high flow nasal cannula with oxygen saturation 95%. Able to achieve 1346-0954 mL on his incentive spirometry. Strong cough. Mediastinal and left pleural chest tubes present to continuous wall suction, no air leaks present. M ediastinal chest tube with 195 mL serosanguineous drainage overnight, 500 mL since surgery. Left pleural chest tube with 150 mL serosanguineous drainage overnight, 300 mL since surgery. - Cardiovascular Details: S1, S2 present. Regular rate and rhythm, sinus rhythm on telemetry. Sternum stable. A/V epicardial pacemaker wires present, connected to generator, VVI mode with a backup rate 50 bpm. Palpable peripheral pulses bilaterally. No edema present. No calf pain or tenderness noted. Heart hugger in place with patient demonstrating appropriate use. Antiembolism stockings, SCDs present. - Gastrointestinal Gastrointestinal Comment(s): Abdomen soft, nontender, nondistended. Hypoactive bowel sounds present 4 quadrants. Tolerating clear liquids. Negative flatus. - Genitourinary Genitourinary Comment(s): Eugene present draining clear, yellow urine. Output 60-80 mL/h overnight. - Integumentary Integumentary Comment(s): Skin is warm and dry with evidence of good perfusion. Anterior chest incision well approximated and covered with dry intact dressing. Right lower extremity EVH site well approximated without redness or drainage. Left radial artery harvest site well approximated, WENDY drain present with minimal drainage, Rui wraps in place. Patient able to wiggle fingers and quality control assessor appropriately, denies numbness or tingling, good cap refill. - Neurologic Neurologic: Present: CNII-XII intact - Musculoskeletal Musculoskeletal: Present: strength equal bilaterally - Psychiatric Psychiatric: Present: A&O x's 3, appropriate affect, intact judgment & insight - Allied health notes Allied health notes reviewed: nursing - Labs CBC & Chem 7: 11/18/19 04:00 11/18/19 04:00 Labs: Abnormal Lab Results - Last 24 Hours (Table) 11/11/19 11/17/19 11/17/19 Range/Units 14:03 08:45 09:56 WBC (3.8-10.6) k/uL RBC (4.30-5.90) m/uL Hgb (13.0-17.5) gm/dL Hct (39.0-53.0) % Plt Count (150-450) k/uL Neutrophils # (1.3-7.7) k/uL Lymphocytes # (1.0-4.8) k/uL Monocytes # (0-1.0) k/uL INR (<1.2) APTT (22.0-30.0) sec ABG pH 7.30 L (7.35-7.45) ABG pCO2 53 H (35-45) mmHg ABG pO2 165 H 202 H (83-108) mmHg ABG HCO3 27 H 26 H (21-25) mmol/L ABG Total CO2 28 H 28 H (19-24) mmol/L ABG O2 Saturation 99.3 H 99.4 H (94-97) % ABG Hematocrit (34.0-46.0) % ABG Sodium (135-146) mmol/L ABG Potassium (3.4-4.5) mmol/L ABG Ionized Calcium 4.4 L 4.4 L (4.5-5.3) mg/dL ABG Glucose 144 H 148 H (75-99) mg/dL ABG Lactic Acid (0.5-1.6) mmol/L Hemoglobin 12.5 L 12.3 L (13.0-17.5) gm/dL Sodium (137-145) mmol/L Glucose (74-99) mg/dL POC Glucose (mg/dL) (75-99) mg/dL Calcium (8.4-10.2) mg/dL Ionized Calcium Robert (4.5-5.3) mg/dL AST (17-59) U/L Total Protein (6.3-8.2) g/dL Albumin (3.5-5.0) g/dL Arterial Blood Potassium (3.4-4.5) mmol/L Arterial Blood Glucose 144 H 148 H (75-99) mg/dL Crossmatch See Detail 11/17/19 11/17/19 11/17/19 Range/Units 10:59 11:13 11:52 WBC (3.8-10.6) k/uL RBC (4.30-5.90) m/uL Hgb (13.0-17.5) gm/dL Hct (39.0-53.0) % Plt Count (150-450) k/uL Neutrophils # (1.3-7.7) k/uL Lymphocytes # (1.0-4.8) k/uL Monocytes # (0-1.0) k/uL INR (<1.2) APTT (22.0-30.0) sec ABG pH 7.31 L 7.32 L 7.33 L (7.35-7.45) ABG pCO2 50 H (35-45) mmHg ABG pO2 300 H 322 H (83-108) mmHg ABG HCO3 (21-25) mmol/L ABG Total CO2 26 H 25 H 25 H (19-24) mmol/L ABG O2 Saturation 99.7 H 99.8 H (94-97) % ABG Hematocrit 28 L 27 L 26 L (34.0-46.0) % ABG Sodium 133 L 133 L (135-146) mmol/L ABG Potassium 6.3 H* 6.2 H* 5.0 H (3.4-4.5) mmol/L ABG Ionized Calcium 4.0 L 4.0 L 3.9 L (4.5-5.3) mg/dL ABG Glucose 216 H 243 H 245 H (75-99) mg/dL ABG Lactic Acid 2.7 H* 3.2 H* 3.8 H* (0.5-1.6) mmol/L Hemoglobin 9.0 L 8.9 L 8.4 L (13.0-17.5) gm/dL Sodium (137-145) mmol/L Glucose (74-99) mg/dL POC Glucose (mg/dL) (75-99) mg/dL Calcium (8.4-10.2) mg/dL Ionized Calcium Robert (4.5-5.3) mg/dL AST (17-59) U/L Total Protein (6.3-8.2) g/dL Albumin (3.5-5.0) g/dL Arterial Blood Potassium 6.3 H* 6.2 H* 5.0 H (3.4-4.5) mmol/L Arterial Blood Glucose 216 H 243 H 245 H (75-99) mg/dL Crossmatch 11/17/19 11/17/19 11/17/19 Range/Units 13:23 14:30 14:37 WBC 19.9 H (3.8-10.6) k/uL RBC 3.17 L (4.30-5.90) m/uL Hgb 9.5 L D (13.0-17.5) gm/dL Hct 29.8 L (39.0-53.0) % Plt Count 135 L (150-450) k/uL Neutrophils # 17.3 H (1.3-7.7) k/uL Lymphocytes # (1.0-4.8) k/uL Monocytes # 1.1 H (0-1.0) k/uL INR (<1.2) APTT (22.0-30.0) sec ABG pH (7.35-7.45) ABG pCO2 (35-45) mmHg ABG pO2 (83-108) mmHg ABG HCO3 (21-25) mmol/L ABG Total CO2 (19-24) mmol/L ABG O2 Saturation (94-97) % ABG Hematocrit (34.0-46.0) % ABG Sodium (135-146) mmol/L ABG Potassium (3.4-4.5) mmol/L ABG Ionized Calcium (4.5-5.3) mg/dL ABG Glucose (75-99) mg/dL ABG Lactic Acid (0.5-1.6) mmol/L Hemoglobin (13.0-17.5) gm/dL Sodium (137-145) mmol/L Glucose (74-99) mg/dL POC Glucose (mg/dL) 198 H 129 H (75-99) mg/dL Calcium (8.4-10.2) mg/dL Ionized Calcium Robert (4.5-5.3) mg/dL AST (17-59) U/L Total Protein (6.3-8.2) g/dL Albumin (3.5-5.0) g/dL Arterial Blood Potassium (3.4-4.5) mmol/L Arterial Blood Glucose (75-99) mg/dL Crossmatch 11/17/19 11/17/19 11/17/19 Range/Units 14:37 14:37 14:42 WBC (3.8-10.6) k/uL RBC (4.30-5.90) m/uL Hgb (13.0-17.5) gm/dL Hct (39.0-53.0) % Plt Count (150-450) k/uL Neutrophils # (1.3-7.7) k/uL Lymphocytes # (1.0-4.8) k/uL Monocytes # (0-1.0) k/uL INR 1.2 H (<1.2) APTT 40.0 H (22.0-30.0) sec ABG pH 7.27 L (7.35-7.45) ABG pCO2 57 H (35-45) mmHg ABG pO2 212 H (83-108) mmHg ABG HCO3 26 H (21-25) mmol/L ABG Total CO2 28 H (19-24) mmol/L ABG O2 Saturation 99.5 H (94-97) % ABG Hematocrit (34.0-46.0) % ABG Sodium (135-146) mmol/L ABG Potassium (3.4-4.5) mmol/L ABG Ionized Calcium (4.5-5.3) mg/dL ABG Glucose (75-99) mg/dL ABG Lactic Acid (0.5-1.6) mmol/L Hemoglobin (13.0-17.5) gm/dL Sodium (137-145) mmol/L Glucose 120 H (74-99) mg/dL POC Glucose (mg/dL) (75-99) mg/dL Calcium 7.2 L (8.4-10.2) mg/dL Ionized Calcium Robert 4.3 L (4.5-5.3) mg/dL AST (17-59) U/L Total Protein 4.7 L (6.3-8.2) g/dL Albumin 2.9 L (3.5-5.0) g/dL Arterial Blood Potassium (3.4-4.5) mmol/L Arterial Blood Glucose (75-99) mg/dL Crossmatch 11/17/19 11/17/19 11/17/19 Range/Units 15:36 16:50 18:14 WBC (3.8-10.6) k/uL RBC (4.30-5.90) m/uL Hgb (13.0-17.5) gm/dL Hct (39.0-53.0) % Plt Count (150-450) k/uL Neutrophils # (1.3-7.7) k/uL Lymphocytes # (1.0-4.8) k/uL Monocytes # (0-1.0) k/uL INR (<1.2) APTT (22.0-30.0) sec ABG pH (7.35-7.45) ABG pCO2 (35-45) mmHg ABG pO2 (83-108) mmHg ABG HCO3 (21-25) mmol/L ABG Total CO2 (19-24) mmol/L ABG O2 Saturation (94-97) % ABG Hematocrit (34.0-46.0) % ABG Sodium (135-146) mmol/L ABG Potassium (3.4-4.5) mmol/L ABG Ionized Calcium (4.5-5.3) mg/dL ABG Glucose (75-99) mg/dL ABG Lactic Acid (0.5-1.6) mmol/L Hemoglobin (13.0-17.5) gm/dL Sodium (137-145) mmol/L Glucose (74-99) mg/dL POC Glucose (mg/dL) 117 H 136 H 149 H (75-99) mg/dL Calcium (8.4-10.2) mg/dL Ionized Calcium Robert (4.5-5.3) mg/dL AST (17-59) U/L Total Protein (6.3-8.2) g/dL Albumin (3.5-5.0) g/dL Arterial Blood Potassium (3.4-4.5) mmol/L Arterial Blood Glucose (75-99) mg/dL Crossmatch 11/17/19 11/17/19 11/17/19 Range/Units 18:54 19:16 19:44 WBC 16.6 H (3.8-10.6) k/uL RBC 3.41 L (4.30-5.90) m/uL Hgb 10.4 L (13.0-17.5) gm/dL Hct 32.1 L (39.0-53.0) % Plt Count (150-450) k/uL Neutrophils # 14.8 H (1.3-7.7) k/uL Lymphocytes # 0.7 L (1.0-4.8) k/uL Monocytes # (0-1.0) k/uL INR (<1.2) APTT (22.0-30.0) sec ABG pH (7.35-7.45) ABG pCO2 (35-45) mmHg ABG pO2 80 L (83-108) mmHg ABG HCO3 (21-25) mmol/L ABG Total CO2 25 H (19-24) mmol/L ABG O2 Saturation (94-97) % ABG Hematocrit (34.0-46.0) % ABG Sodium (135-146) mmol/L ABG Potassium (3.4-4.5) mmol/L ABG Ionized Calcium (4.5-5.3) mg/dL ABG Glucose (75-99) mg/dL ABG Lactic Acid (0.5-1.6) mmol/L Hemoglobin (13.0-17.5) gm/dL Sodium (137-145) mmol/L Glucose (74-99) mg/dL POC Glucose (mg/dL) 171 H (75-99) mg/dL Calcium (8.4-10.2) mg/dL Ionized Calcium Robert (4.5-5.3) mg/dL AST (17-59) U/L Total Protein (6.3-8.2) g/dL Albumin (3.5-5.0) g/dL Arterial Blood Potassium (3.4-4.5) mmol/L Arterial Blood Glucose (75-99) mg/dL Crossmatch 11/17/19 11/17/19 11/17/19 Range/Units 20:23 21:27 22:15 WBC 14.0 H (3.8-10.6) k/uL RBC 3.40 L (4.30-5.90) m/uL Hgb 10.4 L (13.0-17.5) gm/dL Hct 31.8 L (39.0-53.0) % Plt Count (150-450) k/uL Neutrophils # 12.6 H (1.3-7.7) k/uL Lymphocytes # 0.6 L (1.0-4.8) k/uL Monocytes # (0-1.0) k/uL INR (<1.2) APTT (22.0-30.0) sec ABG pH (7.35-7.45) ABG pCO2 (35-45) mmHg ABG pO2 (83-108) mmHg ABG HCO3 (21-25) mmol/L ABG Total CO2 (19-24) mmol/L ABG O2 Saturation (94-97) % ABG Hematocrit (34.0-46.0) % ABG Sodium (135-146) mmol/L ABG Potassium (3.4-4.5) mmol/L ABG Ionized Calcium (4.5-5.3) mg/dL ABG Glucose (75-99) mg/dL ABG Lactic Acid (0.5-1.6) mmol/L Hemoglobin (13.0-17.5) gm/dL Sodium (137-145) mmol/L Glucose (74-99) mg/dL POC Glucose (mg/dL) 183 H 175 H (75-99) mg/dL Calcium (8.4-10.2) mg/dL Ionized Calcium Robert (4.5-5.3) mg/dL AST (17-59) U/L Total Protein (6.3-8.2) g/dL Albumin (3.5-5.0) g/dL Arterial Blood Potassium (3.4-4.5) mmol/L Arterial Blood Glucose (75-99) mg/dL Crossmatch 11/17/19 11/17/19 11/18/19 Range/Units 22:16 23:33 00:20 WBC (3.8-10.6) k/uL RBC (4.30-5.90) m/uL Hgb (13.0-17.5) gm/dL Hct (39.0-53.0) % Plt Count (150-450) k/uL Neutrophils # (1.3-7.7) k/uL Lymphocytes # (1.0-4.8) k/uL Monocytes # (0-1.0) k/uL INR (<1.2) APTT (22.0-30.0) sec ABG pH (7.35-7.45) ABG pCO2 (35-45) mmHg ABG pO2 (83-108) mmHg ABG HCO3 (21-25) mmol/L ABG Total CO2 (19-24) mmol/L ABG O2 Saturation (94-97) % ABG Hematocrit (34.0-46.0) % ABG Sodium (135-146) mmol/L ABG Potassium (3.4-4.5) mmol/L ABG Ionized Calcium (4.5-5.3) mg/dL ABG Glucose (75-99) mg/dL ABG Lactic Acid (0.5-1.6) mmol/L Hemoglobin (13.0-17.5) gm/dL Sodium (137-145) mmol/L Glucose (74-99) mg/dL POC Glucose (mg/dL) 172 H 148 H 139 H (75-99) mg/dL Calcium (8.4-10.2) mg/dL Ionized Calcium Robetr (4.5-5.3) mg/dL AST (17-59) U/L Total Protein (6.3-8.2) g/dL Albumin (3.5-5.0) g/dL Arterial Blood Potassium (3.4-4.5) mmol/L Arterial Blood Glucose (75-99) mg/dL Crossmatch 11/18/19 11/18/19 11/18/19 Range/Units 01:12 01:58 03:09 WBC (3.8-10.6) k/uL RBC (4.30-5.90) m/uL Hgb (13.0-17.5) gm/dL Hct (39.0-53.0) % Plt Count (150-450) k/uL Neutrophils # (1.3-7.7) k/uL Lymphocytes # (1.0-4.8) k/uL Monocytes # (0-1.0) k/uL INR (<1.2) APTT (22.0-30.0) sec ABG pH (7.35-7.45) ABG pCO2 (35-45) mmHg ABG pO2 (83-108) mmHg ABG HCO3 (21-25) mmol/L ABG Total CO2 (19-24) mmol/L ABG O2 Saturation (94-97) % ABG Hematocrit (34.0-46.0) % ABG Sodium (135-146) mmol/L ABG Potassium (3.4-4.5) mmol/L ABG Ionized Calcium (4.5-5.3) mg/dL ABG Glucose (75-99) mg/dL ABG Lactic Acid (0.5-1.6) mmol/L Hemoglobin (13.0-17.5) gm/dL Sodium (137-145) mmol/L Glucose (74-99) mg/dL POC Glucose (mg/dL) 131 H 132 H 138 H (75-99) mg/dL Calcium (8.4-10.2) mg/dL Ionized Calcium Robert (4.5-5.3) mg/dL AST (17-59) U/L Total Protein (6.3-8.2) g/dL Albumin (3.5-5.0) g/dL Arterial Blood Potassium (3.4-4.5) mmol/L Arterial Blood Glucose (75-99) mg/dL Crossmatch 11/18/19 11/18/19 11/18/19 Range/Units 04:00 04:00 04:01 WBC 12.2 H (3.8-10.6) k/uL RBC 3.24 L (4.30-5.90) m/uL Hgb 10.1 L (13.0-17.5) gm/dL Hct 30.2 L (39.0-53.0) % Plt Count 141 L (150-450) k/uL Neutrophils # 10.2 H (1.3-7.7) k/uL Lymphocytes # (1.0-4.8) k/uL Monocytes # (0-1.0) k/uL INR (<1.2) APTT (22.0-30.0) sec ABG pH (7.35-7.45) ABG pCO2 (35-45) mmHg ABG pO2 (83-108) mmHg ABG HCO3 (21-25) mmol/L ABG Total CO2 (19-24) mmol/L ABG O2 Saturation (94-97) % ABG Hematocrit (34.0-46.0) % ABG Sodium (135-146) mmol/L ABG Potassium (3.4-4.5) mmol/L ABG Ionized Calcium (4.5-5.3) mg/dL ABG Glucose (75-99) mg/dL ABG Lactic Acid (0.5-1.6) mmol/L Hemoglobin (13.0-17.5) gm/dL Sodium 135 L (137-145) mmol/L Glucose 119 H (74-99) mg/dL POC Glucose (mg/dL) 136 H (75-99) mg/dL Calcium 7.8 L (8.4-10.2) mg/dL Ionized Calcium Robert 4.4 L (4.5-5.3) mg/dL AST 77 H (17-59) U/L Total Protein 5.0 L (6.3-8.2) g/dL Albumin 3.1 L (3.5-5.0) g/dL Arterial Blood Potassium (3.4-4.5) mmol/L Arterial Blood Glucose (75-99) mg/dL Crossmatch 11/18/19 11/18/19 11/18/19 Range/Units 06:15 08:30 09:05 WBC (3.8-10.6) k/uL RBC (4.30-5.90) m/uL Hgb (13.0-17.5) gm/dL Hct (39.0-53.0) % Plt Count (150-450) k/uL Neutrophils # (1.3-7.7) k/uL Lymphocytes # (1.0-4.8) k/uL Monocytes # (0-1.0) k/uL INR (<1.2) APTT (22.0-30.0) sec ABG pH (7.35-7.45) ABG pCO2 (35-45) mmHg ABG pO2 (83-108) mmHg ABG HCO3 (21-25) mmol/L ABG Total CO2 (19-24) mmol/L ABG O2 Saturation (94-97) % ABG Hematocrit (34.0-46.0) % ABG Sodium (135-146) mmol/L ABG Potassium (3.4-4.5) mmol/L ABG Ionized Calcium (4.5-5.3) mg/dL ABG Glucose (75-99) mg/dL ABG Lactic Acid (0.5-1.6) mmol/L Hemoglobin (13.0-17.5) gm/dL Sodium (137-145) mmol/L Glucose (74-99) mg/dL POC Glucose (mg/dL) 134 H 169 H 198 H (75-99) mg/dL Calcium (8.4-10.2) mg/dL Ionized Calcium Robert (4.5-5.3) mg/dL AST (17-59) U/L Total Protein (6.3-8.2) g/dL Albumin (3.5-5.0) g/dL Arterial Blood Potassium (3.4-4.5) mmol/L Arterial Blood Glucose (75-99) mg/dL Crossmatch - Imaging and Cardiology Chest x-ray: report reviewed, image reviewed Assessment and Plan Assessment: 1. Symptomatic multivessel coronary artery disease with unstable angina, status post four-vessel CABG 2. Preserved left ventricular systolic function with EF 60%, mild mitral regurgitation and mild tricuspid regurgitation 3. Hypertension 4. Hyperlipidemia, LDL 163, cholesterol 249, triglycerides 214 5. Type 2 diabetes mellitus with preoperative hemoglobin A1c 8% 6. Obesity 7. Osteoarthritis 8. Current tobacco dependence 9. Mild COPD with preoperative FEV1 75% of predicted 10. Postoperative acute blood loss anemia, thrombocytopenia, leukocytosis Plan: 1. Continue aspirin, statin, Plavix, beta js therapy. Will increase beta js therapy as tolerated 2. Discontinue IV nitro. Will start Norvasc for radial artery spasm prophylaxis, discontinue IV Cardizem. Do not discontinue CCB without discussing with cardiac surgery 3. Discontinue amiodarone as patient has had no ectopy or atrial fibrillation 4. Wean O2 as tolerated. Encourage incentive spirometry use 10 times every hour while awake. Bronchodilators per pulmonology. 5. Increase activity, ambulate as tolerated. PT/OT/cardiac rehab consult 6. Will monitor daily labs and x-rays. Electrolyte replacement per protocol. No blood transfusion today. 7. Pain control with current medication regimen. 8. Will discontinue [place], connect [place]is to continuous CVP monitoring 9. Discontinue WENDY drain 10. We will keep chest tubes for another 24 hours 11. Keep Eugene for another 24 hours. Record strict accurate intake and output 12. Daily weight 13. Insulin management per primary care service 14. More recommendations to follow as patient progresses Time with Patient: Greater than 30
[2019-11-18] MEDS: LACTATED RINGERS 1,000 ML IV SCH (10:06)
[2019-11-18 10:07] LABS: Glucose,Whole Blood 169 mg/dL (75-99)
[2019-11-18 10:14] VITALS: BMI 34.4
--- NOTE | 2019-11-18 10:25 | OP ---
OPERATIVE REPORT DATE OF SURGERY: 11/17/2019 PREOPERATIVE DIAGNOSIS: Coronary artery disease. POSTOPERATIVE DIAGNOSIS: Coronary artery disease. PROCEDURE: 1. Coronary artery bypass grafting x 4 vessels (left internal mammary artery to left anterior descending artery, radial artery to obtuse marginal artery 1, saphenous vein graft to obtuse marginal artery 2, saphenous vein graft to posterior descending artery). 2. Endoscopic harvest of right greater saphenous vein. 3. Endoscopic harvest of left radial artery. 4. Epiaortic ultrasound. 5. Transesophageal echocardiogram. 6. Ligation of left atrial appendage using 35 mm atrial clip. SURGEON: Valentin Scales MD. ASSISTANTS: 1. JOEY Wolf. 2. JOEY Caballero. 3. JOEY Barrios. ANESTHESIA: General. SPECIMEN: None. COMPLICATION: None. INDICATION: The patient is a 64-year-old male with a past medical history significant for diabetes mellitus, hyperlipidemia, hypertension, osteoarthritis, and tobacco use who presented to the hospital with exertional angina. Workup revealed multivessel coronary artery disease. A coronary artery bypass was recommended. The risks, benefits, and alternatives of the procedure were discussed with the patient. All his questions were answered. Consent was obtained. FINDINGS: The left internal mammary artery was a good conduit with brisk flow. The saphenous vein was a good conduit. The radial artery was a good conduit. The left anterior descending artery measured 1.3 mm and contained diffuse disease. The OM1 measured 1.5 mm. The OM 2 measured 1.5 mm. The PDA measured 1.5 mm. PROCEDURE: The patient was taken the operating room and placed supine on the operating table. After the induction of general anesthesia, he was prepped and draped in the usual sterile fashion. Preoperative transesophageal echocardiogram confirmed a preserved ejection fraction with trace to mild mitral regurgitation. A median sternotomy was performed. The left internal mammary was harvested in the standard fashion taking care to clip all branches. Intravenous heparin was administered. The vessel was transected distally revealing brisk flow. Simultaneously, greater saphenous vein was harvested from the left lower extremity using endoscopic technique. All branches were tied. In addition, radial artery was harvested from the left upper extremity again using endoscopic technique. All branches were tied. All 3 vessels were good conduits. A pericardial cradle was created. The ascending artery was palpated. There was no significant calcific plaque noted. Epiaortic ultrasound was then performed on the ascending aorta. Again no calcific plaque or atheromatous disease was appreciated. An arterial catheter placed distally in the aorta. A venous cannula was placed through the right atrial appendage and directed into the IVC. [place] antegrade and retrograde catheters were placed as well. The patient was then placed on cardiopulmonary bypass with good decompression of the heart. The aortic cross-clamp was applied. Cold blood potassium cardioplegia was delivered in both antegrade and retrograde fashion to achieve arrest of the heart. Of note, cardioplegia was delivered to every 15 to 20 minutes while the patient remained under crossclamp. I began by identifying the left atrial appendage. A 35 mm Atriclip was placed across its base to ensure ligation. Next, the inferior wall was inspected. The posterior descending artery was identified. It was dissected free. A soft spot amenable for bypass was noted just beyond the calcific plaque. A small arteriotomy was created. This vessel accepted a 1.5 mm probe. Using saphenous vein in reverse fashion, an end- to-side anastomosis was created. This was performed using a running 7-0 Prolene suture. The graft was hemostatic and had great flow. Next the lateral wall was inspected. Both the OM1 and OM2 were identified and dissected free. The OM 2 was the distal branch and a small arteriotomy was created just proximal to its trifurcation. This vessel accepted a 1.5 mm probe. Using saphenous vein in a reverse fashion, an end- to-side anastomosis was created. This was performed using a running 7-0 Prolene suture. The graft was hemostatic and had great flow. Next, the OM 1 was identified. It was intramuscular in location. It was dissected free. A small arteriotomy was created. This vessel accepted a 1.5 mm probe. Using the radial artery, an end-to-side anastomosis was created. This was performed using running 7-0 Prolene suture. The graft was hemostatic and had great flow. Next, the left anterior descending artery was identified. It was dissected free in its midportion just beyond the takeoff of the diagonal artery. It did contain diffuse calcific disease. A soft spot amenable for bypass was chosen. A small arteriotomy was created and the vessel accepted a 1 mm probe. Using the left internal mammary artery, an end-to-side anastomosis was created. This was performed using a running 8-0 Prolene suture. The graft was hemostatic. The mammary pedicle was then tacked down to the anterior surface of the heart. Attention was then turned to the proximal anastomoses. These were all performed in an end- to-side fashion using running 6-0 Prolene suture. A 7-0 Prolene suture was used on the radial artery anastomosis. One liter of warm blood was delivered in retrograde fashion. Lidocaine and magnesium were administered as well. The aortic cross-clamp was removed. The grafts were de-aired in the standard fashion. Distal anastomoses were inspected and appeared to be hemostatic. Temporary atrial and ventricular pacing wires were placed and brought through the skin. The patient was then weaned off cardiopulmonary bypass. He without any difficulty and without the need for pressor support. Followup transesophageal echocardiogram confirmed good left ventricular ejection fraction. There was no change in valvular pathology. Protamine was administered. There were no adverse reactions. The remaining cannulas were then removed. The mediastinum was copiously irrigated with warm saline solution. All surgical sites were again inspected and appeared to be hemostatic. Soft tissues were reapproximated over the ascending aorta as well as over the apex of the heart. Straight 32-Greek chest tubes were placed and directed into both the left pleural space and the mediastinum. These were secured to the skin using sutures. The sternum was then reapproximated using the [place] cable system. The cables were placed in a [id number] fashion. At the completion of the closure, the sternum was well aligned. The remainder of the wound was closed in layers. Sterile dressing was applied. The patient appeared to tolerate the procedure well. There were no immediate complications. He returned to the ICU in critical but stable condition. MMODL / IJN: [id number] / SHARIF
[2019-11-18 11:13] LABS: Glucose,Whole Blood 119 mg/dL (75-99)
[2019-11-18] MEDS: DILTIAZEM 125 MG in SODIUM CHLORIDE 0.9% 100 ML IV SCH (12:10)
[2019-11-18 12:11] LABS: Glucose,Whole Blood 114 mg/dL (75-99)
--- NOTE | 2019-11-18 13:07 | PN ---
PROGRESS NOTE Mr. Bates is a 64-year-old male who underwent coronary bypass grafting yesterday. He is extubated, sitting up in the chair, feeling well. He has some soreness in the chest. He is in sinus mechanism. Hemodynamically, he is stable. He has no evidence of ventricular tachycardia. He continues to be on aspirin once a day, Lipitor 40 mg daily, Plavix 75 mg daily, IV Cardizem and IV amiodarone that was initiated because of ventricular ectopic activity. In addition to metoprolol tartrate 25 mg twice a day. PHYSICAL EXAMINATION: Blood pressure 135/70 with a heart rate in the 80s, lungs with mild decrease in breath sounds, no wheezes. HEART: Regular rate and rhythm, S1, S2. No S3. No rub appreciated. ABDOMEN: Soft, nontender. EXTREMITIES: Rui wrapping in place. LAB DATA: Revealed BUN and creatinine 21 and 0.03, potassium 4.3, hemoglobin of 10.1. IMPRESSION: 1. Status post coronary artery bypass grafting, stable. 2. History of hyperlipidemia. 3. Prior history of smoking. 4. History of diabetes. 5. Hypertension. RECOMMENDATION: Will continue current therapy. Continue to increase his level of activity, follow his blood pressure and if stable, reinitiate losartan. Continue incentive spirometry and depending on his progress, further recommendation will be made. MMODL / IJN: [id number] /
[2019-11-18 13:33] LABS: Glucose,Whole Blood 189 mg/dL (75-99)
--- NOTE | 2019-11-18 14:01 | PN ---
PROGRESS NOTE PULMONARY/CRITICAL CARE PROGRESS NOTE: DATE OF SERVICE: 11/18/2019 CRITICAL CARE TIME: 32 minutes This is a 64-year-old gentleman who is status post 4-vessel bypass grafting, he is postop day #1. He was extubated within the 6-hour window. He had great weaning parameters and a positive cuff leak test. The patient is currently on 8 L high-flow O2. He is receiving lactated Ringer's at 50 mL an hour, insulin at 5 units an hour and Cardizem drip at 5 mg an hour. The patient otherwise is doing reasonably well. He is complaining of pain in the chest area from his recent surgery. He is also doing reasonably well on his incentive spirometer. He denies any shortness of breath, cough, wheezing, phlegm production. There is no palpitations or fluttering. He denies any nausea, vomiting, diarrhea, or abdominal pain. He also denies any genitourinary complaints. The patient's initial vent settings were AC mode, rate of 14, tidal volume 450, FiO2 of 100%, PEEP of 5. After the initial set of gases which showed a pO2 of 212, pCO2 of 57 and a pH of 7.27, the rate was increased from 14-18, and the FiO2 was dropped from 100% to 60%. Current vital signs are reviewed. Temperature is 99, heart rate 83, respiratory rate 15, blood pressure 135/70 mean 91, CVP is 12, and saturations are 95% on 8 L high flow. Appears in no acute distress. HEENT: Examination is grossly unremarkable. NECK: Supple. CARDIOVASCULAR: Examination reveals regular rhythm and rate. S1, S2 normal. No S3, S4, or murmur. LUNGS: Reveal clear breath sounds. No wheezes or rhonchi. No crackles. Breath sounds equal bilaterally. ABDOMEN: Soft, bowel sounds are heard. EXTREMITIES Intact. No edema. SKIN: Without rash. NEUROLOGIC: Examination is nonfocal. Chest tubes and invasive lines are noted. LABS: Reviewed. White count 12.2, hemoglobin 10.1, hematocrit 30.2, platelet count 140,000. Sodium 135, potassium 4.3, chloride 104, CO2 27, anion gap is 4. BUN and creatinine were 20 and 1.03. Chest x-ray from November 17 shows interval extubation and postoperative changes. Current medications are reviewed. ASSESSMENT: 1. Postoperative day #1, status post 4-vessel bypass grafting. 2. History of severe CAD. 3. Angina pectoris. 4. Benign essential hypertension. 5. Hyperlipidemia. 6. Type 2 diabetes mellitus. 7. Obesity. 8. Osteoarthritis. 9. Ongoing tobacco use with nicotine addiction. PLAN: Currently, the patient is doing well. The patient was extubated within the 6-hour window. The patient remains on lactated Ringer's at 50 mL an hour, insulin drip of 5 units an hour and Cardizem drip at 5 mg an hour. The patient is currently on 8 L high- flow O2. We encourage deep breathing, coughing, clearing of secretions and hourly use of the incentive spirometer. Additional recommendations and suggestions are forthcoming. Daily x-rays are advised. MMMICHELLEL / IJN: [id number] /
[2019-11-18 14:03] LABS: Glucose,Whole Blood 206 mg/dL (75-99)
[2019-11-18 15:26] LABS: Glucose,Whole Blood 165 mg/dL (75-99)
[2019-11-18] MEDS: INSULIN REGULAR 100 UNIT in SODIUM CHLORIDE 0.9% 100 ML IV SCH (15:29)
[2019-11-18 16:22] LABS: Glucose,Whole Blood 129 mg/dL (75-99)
[2019-11-18] MEDS: METOPROLOL TARTRATE 25 MG TAB PO SCH ×2 (16:23→23:13)
[2019-11-18 17:33] LABS: Glucose,Whole Blood 112 mg/dL (75-99)
[2019-11-18 18:54] LABS: Glucose,Whole Blood 117 mg/dL (75-99)
[2019-11-18 18:54] LABS: Glucose,Whole Blood 297 mg/dL (75-99)
[2019-11-18] MEDS: BENZOCAINE/MENTHOL LOZENG 1 EACH LOZENGE MUCOUS MEM PRN (19:26)
[2019-11-18] MEDS ORDERED: LOSARTAN 25 MG TAB PO SCH (19:30)
[2019-11-18 19:55] LABS: Glucose,Whole Blood 158 mg/dL (75-99)
[2019-11-18] MEDS: SENNOSIDES-DOCUSATE SODIUM 1 EACH TAB PO SCH (20:13)
--- NOTE | 2019-11-18 20:35 | P.CONS ---
History of Present Illness - History of Present Illness This is a pleasant 64 years old male With past medical history of coronary artery disease, diabetes mellitus, hypertension, hyperlipidemia, osteoarthritis, panic attack. He was admitted for coronary artery bypass grafting secondary to an stable angina with multiple vessels affected, with ejection fraction 60%. Today is postoperative day #1 Patient is monitored in the ICU, without complaint. Table. No dizziness.. Hemodynamically stable send labs reviewed Patient is a started on aspirin 325 mg and Plavix, and is on metoprolol and JAYNE inhibitor and statin. Patient has mild leukocytosis of 12 point okay. BMP and liver enzymes were unremarkable. Sugar controlled while on insulin drip at 5.5 units per hour. Review of Systems CONSTITUTIONAL: No fever, no malaise, no fatigue. HEENT: No recent visual problems or hearing problems. Denied any sore throat. CARDIOVASCULAR: No orthopnea, PND, no palpitations, no syncope. PULMONARY: No shortness of breath, no cough, no hemoptysis. GASTROINTESTINAL: No diarrhea, no nausea, no vomiting, no abdominal pain. Normoactive bowel sounds. NEUROLOGICAL: No headaches, no weakness, no numbness. HEMATOLOGICAL: Denies any bleeding or petechiae. GENITOURINARY: Denies any burning micturition, frequency, or urgency. MUSCULOSKELETAL/RHEUMATOLOGICAL: Denies any joint pain, swelling, or any muscle pain. ENDOCRINE: Denies any polyuria or polydipsia. Past Medical History Past Medical History: Coronary Artery Disease (CAD), Chest Pain / Angina, Diab etes Mellitus, Hyperlipidemia, Hypertension, Osteoarthritis (OA) Additional Past Medical History / Comment(s): panic attack History of Any Multi-Drug Resistant Organisms: None Reported Past Surgical History: Heart Catheterization, Hernia Repair, Joint Replacement Additional Past Surgical History / Comment(s): rt groin puncture for heartcath on 11-11-19,hemorrhoidectomy, rosa knee replacements Past Anesthesia/Blood Transfusion Reactions: No Reported Reaction Additional Past Anesthesia/Blood Transfusion Reaction / Comm: no hx blood transfusion Smoking Status: Current every day smoker - Past Family History Mother Family Medical History: Neurologic Disorder Father Additional Family Medical History / Comment(s): Father from a work- related injury. Medications and Allergies Home Medications Medication Instructions Recorded Confirmed Type Aspirin 81 mg PO DAILY 11/10/19 11/17/19 History Losartan Potassium [Cozaar] 100 mg PO DAILY 11/10/19 11/17/19 History Meloxicam [Mobic] 7.5 mg PO DAILY 11/10/19 11/17/19 History Nitroglycerin Sl Tabs [Nitrostat] 0.4 mg SUBLINGUAL Q5M PRN 11/10/19 11/17/19 History metFORMIN HCL [Glucophage] 1,000 mg PO BID 11/10/19 11/17/19 History Atorvastatin [Lipitor] 80 mg PO DAILY 11/11/19 11/17/19 History Isosorbide Mononitrate ER [Imdur] 30 mg PO DAILY 11/11/19 11/17/19 History Metoprolol Succinate [Toprol XL] 50 mg PO DAILY 11/11/19 11/17/19 History Allergies Allergy/AdvReac Type Severity Reaction Status Date / Time No Known Allergies Allergy Verified 11/17/19 06:25 Physical Exam Vitals: Vital Signs Temp Pulse Resp BP Pulse Ox 11/18/19 19:00 92 15 147/72 94 L 11/18/19 18:00 82 19 113/71 90 L 11/18/19 17:00 85 16 133/73 94 L 11/18/19 16:30 88 11/18/19 16:18 86 11/18/19 16:00 97.9 F 86 15 132/69 93 L 11/18/19 15:00 84 14 129/67 94 L 11/18/19 14:18 86 15 132/79 95 11/18/19 13:00 81 18 132/79 95 11/18/19 12:00 98.5 F 73 17 132/79 97 11/18/19 11:56 73 11/18/19 11:49 71 11/18/19 11:00 72 12 128/78 96 11/18/19 10:00 81 17 143/76 96 11/18/19 09:00 83 15 135/70 95 11/18/19 08:27 76 11/18/19 08:20 74 11/18/19 08:00 99.0 F 80 17 135/70 95 11/18/19 07:00 70 12 95 11/18/19 06:00 82 18 92 L 11/18/19 05:00 72 16 94 L 11/18/19 04:00 72 12 95 11/18/19 03:00 75 15 95 11/18/19 02:17 95 11/18/19 02:00 75 13 95 11/18/19 01:00 98.8 F 76 13 135/70 96 11/18/19 00:15 80 15 130/70 95 11/18/19 00:00 98.6 F 79 12 130/70 95 11/17/19 23:00 98.6 F 81 9 L 94 L 11/17/19 22:30 94 L 11/17/19 22:00 82 12 130/70 94 L 11/17/19 21:00 98.2 F 84 14 130/70 92 L 11/17/19 20:38 92 L Intake and Output 11/18/19 11/18/19 11/18/19 06:59 14:59 22:59 Intake Total 1102.957 423.665 155.697 Output Total 911 535 325 Balance 191.957 -111.335 -169.303 Intake: IV 632 241 130 0.9% CO/CI 60 Lactated Ringers 1,000 ml 400 190 100 @ 20 mls/hr IV .Q24H MICHELLE Rx#:[id number] Magnesium Sulfate-D5w Pmx 100 1 gm In Dextrose/Water 1 100ml.bag @ 100 mls/hr IVPB Q1H MICHELLE Rx#: [id number] Pressure Bags 72 51 30 Intake, IV Titration 470.957 182.665 25.697 Amount ACETAMINOPHEN IV (For NPO 100 ) 1,000 mg In Empty Bag 1 bag @ 400 mls/hr IVPB Q6H MICHELLE Rx#:[id number] Amiodarone 300 mg In 226.25 Dextrose 5% in Water 250 ml @ 0.5 MG/MIN 25 mls/hr IV .Q10H PRN Rx#: [id number] Clevidipine Butyrate 25 60.200 mg In Empty Bag 1 bag @ 1 MG/HR 2 mls/hr IV .Q24H MICHELLE Rx#:[id number] Insulin Regular 100 unit 34.507 32.665 25.697 In Sodium Chloride 0.9% 100 ml @ Per Protocol IV .Q0M MICHELLE Rx#:[id number] Magnesium Sulfate-D5w Pmx 100 1 gm In Dextrose/Water 1 100ml.bag @ 100 mls/hr IVPB Q1H MICHELLE Rx#: [id number] ceFAZolin 2 gm In Sodium 50 50 Chloride 0.9% 50 ml @ 100 mls/hr IVPB Q8HR [facility] Rx# :[id number] Output: Chest Tube Drainage 343 115 80 Chest Tube Left Left 150 10 20 Pleural/Mediastinal Chest Tube Mediastinal 193 105 60 Drainage 28 Left Wrist 28 Urine 540 420 245 Other: Weight 105.8 kg 105.8 kg ABP, PAP, CO, CI - Last 8 Hours Arterial Blood Pressure 155/56 Arterial Blood Pressure 122/72 Arterial Blood Pressure 161/59 Arterial Blood Pressure 140/63 Arterial Blood Pressure 158/51 Arterial Blood Pressure 154/54 Arterial Blood Pressure 147/54 GENERAL: The patient is alert and oriented x3, not in any acute distress. Well developed, well nourished. HEENT: Pupils are round and equally reacting to light. EOMI. No scleral icterus. No conjunctival pallor. Normocephalic, atraumatic. No pharyngeal erythema. No thyromegaly. CARDIOVASCULAR: S1 and S2 present. No murmurs, rubs, or gallops. Sternal wound with dressing PULMONARY: Chest is clear to auscultation, no wheezing or crackles. ABDOMEN: Soft, nontender, nondistended, normoactive bowel sounds. No palpable organomegaly. MUSCULOSKELETAL: No joint swelling or deformity. EXTREMITIES: No cyanosis, clubbing, or pedal edema. NEUROLOGICAL: Gross neurological examination did not reveal any focal deficits. SKIN: No rashes. No petechiae Results CBC & Chem 7: 11/18/19 04:00 11/18/19 04:00 Labs: Abnormal Lab Results - Last 24 Hours (Table) 11/11/19 11/17/19 11/17/19 Range/Units 14:03 20:23 21:27 WBC (3.8-10.6) k/uL RBC (4.30-5.90) m/uL Hgb (13.0-17.5) gm/dL Hct (39.0-53.0) % Plt Count (150-450) k/uL Neutrophils # (1.3-7.7) k/uL Lymphocytes # (1.0-4.8) k/uL Sodium (137-145) mmol/L Glucose (74-99) mg/dL POC Glucose (mg/dL) 183 H 175 H (75-99) mg/dL Calcium (8.4-10.2) mg/dL Ionized Calcium Robert (4.5-5.3) mg/dL AST (17-59) U/L Total Protein (6.3-8.2) g/dL Albumin (3.5-5.0) g/dL Crossmatch See Detail 11/17/19 11/17/19 11/17/19 Range/Units 22:15 22:16 23:33 WBC 14.0 H (3.8-10.6) k/uL RBC 3.40 L (4.30-5.90) m/uL Hgb 10.4 L (13.0-17.5) gm/dL Hct 31.8 L (39.0-53.0) % Plt Count (150-450) k/uL Neutrophils # 12.6 H (1.3-7.7) k/uL Lymphocytes # 0.6 L (1.0-4.8) k/uL Sodium (137-145) mmol/L Glucose (74-99) mg/dL POC Glucose (mg/dL) 172 H 148 H (75-99) mg/dL Calcium (8.4-10.2) mg/dL Ionized Calcium Robert (4.5-5.3) mg/dL AST (17-59) U/L Total Protein (6.3-8.2) g/dL Albumin (3.5-5.0) g/dL Crossmatch 11/18/19 11/18/19 11/18/19 Range/Units 00:20 01:12 01:58 WBC (3.8-10.6) k/uL RBC (4.30-5.90) m/uL Hgb (13.0-17.5) gm/dL Hct (39.0-53.0) % Plt Count (150-450) k/uL Neutrophils # (1.3-7.7) k/uL Lymphocytes # (1.0-4.8) k/uL Sodium (137-145) mmol/L Glucose (74-99) mg/dL POC Glucose (mg/dL) 139 H 131 H 132 H (75-99) mg/dL Calcium (8.4-10.2) mg/dL Ionized Calcium Robert (4.5-5.3) mg/dL AST (17-59) U/L Total Protein (6.3-8.2) g/dL Albumin (3.5-5.0) g/dL Crossmatch 11/18/19 11/18/19 11/18/19 Range/Units 03:09 04:00 04:00 WBC 12.2 H (3.8-10.6) k/uL RBC 3.24 L (4.30-5.90) m/uL Hgb 10.1 L (13.0-17.5) gm/dL Hct 30.2 L (39.0-53.0) % Plt Count 141 L (150-450) k/uL Neutrophils # 10.2 H (1.3-7.7) k/uL Lymphocytes # (1.0-4.8) k/uL Sodium 135 L (137-145) mmol/L Glucose 119 H (74-99) mg/dL POC Glucose (mg/dL) 138 H (75-99) mg/dL Calcium 7.8 L (8.4-10.2) mg/dL Ionized Calcium Robert 4.4 L (4.5-5.3) mg/dL AST 77 H (17-59) U/L Total Protein 5.0 L (6.3-8.2) g/dL Albumin 3.1 L (3.5-5.0) g/dL Crossmatch 11/18/19 11/18/19 11/18/19 Range/Units 04:01 06:15 08:30 WBC (3.8-10.6) k/uL RBC (4.30-5.90) m/uL Hgb (13.0-17.5) gm/dL Hct (39.0-53.0) % Plt Count (150-450) k/uL Neutrophils # (1.3-7.7) k/uL Lymphocytes # (1.0-4.8) k/uL Sodium (137-145) mmol/L Glucose (74-99) mg/dL POC Glucose (mg/dL) 136 H 134 H 169 H (75-99) mg/dL Calcium (8.4-10.2) mg/dL Ionized Calcium Robert (4.5-5.3) mg/dL AST (17-59) U/L Total Protein (6.3-8.2) g/dL Albumin (3.5-5.0) g/dL Crossmatch 11/18/19 11/18/19 11/18/19 Range/Units 09:05 10:04 11:12 WBC (3.8-10.6) k/uL RBC (4.30-5.90) m/uL Hgb (13.0-17.5) gm/dL Hct (39.0-53.0) % Plt Count (150-450) k/uL Neutrophils # (1.3-7.7) k/uL Lymphocytes # (1.0-4.8) k/uL Sodium (137-145) mmol/L Glucose (74-99) mg/dL POC Glucose (mg/dL) 198 H 169 H 119 H (75-99) mg/dL Calcium (8.4-10.2) mg/dL Ionized Calcium Robert (4.5-5.3) mg/dL AST (17-59) U/L Total Protein (6.3-8.2) g/dL Albumin (3.5-5.0) g/dL Crossmatch 11/18/19 11/18/19 11/18/19 Range/Units 12:09 13:32 14:02 WBC (3.8-10.6) k/uL RBC (4.30-5.90) m/uL Hgb (13.0-17.5) gm/dL Hct (39.0-53.0) % Plt Count (150-450) k/uL Neutrophils # (1.3-7.7) k/uL Lymphocytes # (1.0-4.8) k/uL Sodium (137-145) mmol/L Glucose (74-99) mg/dL POC Glucose (mg/dL) 114 H 189 H 206 H (75-99) mg/dL Calcium (8.4-10.2) mg/dL Ionized Calcium Robert (4.5-5.3) mg/dL AST (17-59) U/L Total Protein (6.3-8.2) g/dL Albumin (3.5-5.0) g/dL Crossmatch 11/18/19 11/18/19 11/18/19 Range/Units 15:25 16:20 17:32 WBC (3.8-10.6) k/uL RBC (4.30-5.90) m/uL Hgb (13.0-17.5) gm/dL Hct (39.0-53.0) % Plt Count (150-450) k/uL Neutrophils # (1.3-7.7) k/uL Lymphocytes # (1.0-4.8) k/uL Sodium (137-145) mmol/L Glucose (74-99) mg/dL POC Glucose (mg/dL) 165 H 129 H 112 H (75-99) mg/dL Calcium (8.4-10.2) mg/dL Ionized Calcium Robert (4.5-5.3) mg/dL AST (17-59) U/L Total Protein (6.3-8.2) g/dL Albumin (3.5-5.0) g/dL Crossmatch 11/18/19 11/18/19 11/18/19 Range/Units 18:51 18:53 19:54 WBC (3.8-10.6) k/uL RBC (4.30-5.90) m/uL Hgb (13.0-17.5) gm/dL Hct (39.0-53.0) % Plt Count (150-450) k/uL Neutrophils # (1.3-7.7) k/uL Lymphocytes # (1.0-4.8) k/uL Sodium (137-145) mmol/L Glucose (74-99) mg/dL POC Glucose (mg/dL) 297 H 117 H 158 H (75-99) mg/dL Calcium (8.4-10.2) mg/dL Ionized Calcium Robert (4.5-5.3) mg/dL AST (17-59) U/L Total Protein (6.3-8.2) g/dL Albumin (3.5-5.0) g/dL Crossmatch Assessment and Plan Assessment: Multiple vessel coronary artery disease status post CABG Diabetes mellitus Hypertension Hyperlipidemia Primary osteoarthritis History of panic attack Plan: This is a pleasant 64 years old male who presents with CABG. Patient emerged closely in the ICU. Continue with aspirin and Plavix. Continue with insulin. Patient is monitored closely by several consultants including cardiology and pulmonary besides the cardio thoracic surgery primary team. Labs and medication were reviewed.. Continue same treatment. Continue with symptomatic treatment. Resume home medication. Monitor lytes and vitals. DVT and GI prophylaxis. Further recommendations of the clinical course of the patient DVT prophylaxis: Subcutaneous heparin GI Prophylaxis: Ppi
[2019-11-18 20:59] LABS: Glucose,Whole Blood 163 mg/dL (75-99)
[2019-11-18 21:49] LABS: Glucose,Whole Blood 151 mg/dL (75-99)
[2019-11-18 23:03] LABS: Glucose,Whole Blood 127 mg/dL (75-99)
[2019-11-19 00:33] LABS: Glucose,Whole Blood 110 mg/dL (75-99)
[2019-11-19] MEDS ORDERED: ONDANSETRON 4 MG/2 ML VIAL IVP PRN (01:24)
[2019-11-19 02:16] LABS: Glucose,Whole Blood 128 mg/dL (75-99)
[2019-11-19 04:19] LABS: Glucose,Whole Blood 122 mg/dL (75-99)
[2019-11-19 04:29] LABS: Basophils % (A) 0 %; Eosinophils # (A) 0.5 k/uL (0-0.7); Eosinophils % (A) 4 %; HCT 26.9 % (39.0-53.0); Lymphocytes # (A) 1.1 k/uL (1.0-4.8); Lymphocytes % (A) 8 %; MCH 30.1 pg (25.0-35.0); MCHC 32.1 g/dL (31.0-37.0); MCV 93.6 fL (80.0-100.0); Mean Platelet Volume 8.5; Monocytes # (A) 0.6 k/uL (0-1.0); Monocytes % (A) 5 %; Neutrophils # (A) 11.8 k/uL (1.3-7.7); Neutrophils % (A) 83 %; Platelet Count 141 k/uL (150-450); RBC 2.87 m/uL (4.30-5.90); RDW 14.6 % (11.5-15.5); WBC 14.2 k/uL (3.8-10.6)
[2019-11-19] MEDS: BENZOCAINE/MENTHOL LOZENG 1 EACH LOZENGE MUCOUS MEM PRN ×3 (04:29→20:57)
[2019-11-19 04:44] LABS: Ionized Calcium 4.3 mg/dL (4.5-5.3)
[2019-11-19 04:53] LABS: ALT 18 U/L (4-49); AST 57 U/L (17-59); African American GFR (CKD) >90 (>60 ml/min/1.73 sqM); Albumin 2.7 g/dL (3.5-5.0); Alkaline Phosphatase 51 U/L (38-126); Anion Gap 1 mmol/L; Blood Urea Nitrogen 20 mg/dL (9-20); Calcium 7.3 mg/dL (8.4-10.2); Carbon Dioxide 27 mmol/L (22-30); Chloride 104 mmol/L (98-107); Glucose 116 mg/dL (74-99); Non-African American GFR(CKD) >90 (>60 ml/min/1.73 sqM); Potassium 4.3 mmol/L (3.5-5.1); Sodium 132 mmol/L (137-145); Total Bilirubin 0.7 mg/dL (0.2-1.3); Total Protein 4.8 g/dL (6.3-8.2)
[2019-11-19 05:34] LABS: HGB 8.6 gm/dL (13.0-17.5)
[2019-11-19] MEDS: KETOROLAC 15 MG/ML 1 ML VIAL IVP SCH ×3 (05:49→18:29)
[2019-11-19 06:19] LABS: Glucose,Whole Blood 135 mg/dL (75-99)
[2019-11-19 08:24] LABS: Glucose,Whole Blood 254 mg/dL (75-99)
[2019-11-19] MEDS: ATORVASTATIN 40 MG TAB PO SCH (08:42)
[2019-11-19] MEDS: ASPIRIN 325 MG TAB PO SCH (08:42)
[2019-11-19] MEDS: METOPROLOL TARTRATE 50 MG TAB PO SCH ×2 (08:42→20:57)
[2019-11-19] MEDS: amLODIPine 5 MG TAB PO SCH (08:42)
[2019-11-19] MEDS: CLOPIDOGREL 75 MG TAB PO SCH (08:42)
[2019-11-19] MEDS: HEPARIN SODIUM,PORCINE 5,000 UNIT/ML 1 ML VIAL SQ SCH ×2 (08:43→16:52)
[2019-11-19] MEDS: PANTOPRAZOLE 40 MG TABLET PO SCH (08:43)
[2019-11-19] MEDS: IPRATROPIUM-ALBUTEROL 3 ML NEB INHALATION SCH ×4 (08:51→20:17)
--- NOTE | 2019-11-19 08:51 | P.PN ---
Subjective Progress Note Date: 11/19/19 Principal diagnosis: Symptomatic multivessel coronary artery disease with unstable angina, preserved left ventricular systolic function with EF 60%, mild mitral regurgitation and m ild tricuspid regurgitation. Previous medical history of hypertension, hyperlipidemia, type 2 diabetes mellitus with preoperative hemoglobin A1c 8%, obesity, osteoarthritis, current tobacco dependence, and mild COPD with preoperative FEV1 75% of predicted POD #2 coronary artery bypass grafting with left internal mammary artery to the left anterior descending artery, left radial artery to the first obtuse marginal artery, reverse saphenous vein graft to the second obtuse marginal artery, reverse saphenous vein graft to the posterior descending artery, endoscopic harvesting of the left radial artery, endoscopic harvesting of the right greater saphenous vein, left atrial appendage ligation with 35 mm AtriCure clip, intraoperative transesophageal echocardiogram and epi-aortic scanning Postoperative acute blood loss anemia and thrombocytopenia, expected given hemodilution and cardiopulmonary bypass pump Postoperative leukocytosis, expected, reactive The patient is currently sitting up in a recliner in the intensive care unit in no acute distress. He states pain is well controlled on current medication regimen, denies shortness of breath. He remains in normal sinus rhythm and hemo dynamically stable on no inotropes or pressors. Right internal jugular Cordis, right radial arterial line, mediastinal and left pleural chest tubes all remain. No new concerns. Objective - Vital Signs Vital signs: Vital Signs Temp 99.1 F 11/19/19 04:00 Pulse 101 H 11/19/19 07:00 Resp 22 11/19/19 07:00 BP 130/65 11/19/19 07:00 Pulse Ox 93 L 11/19/19 07:00 Intake & Output 11/18/19 11/19/19 11/19/19 18:59 06:59 18:59 Intake Total 553.269 895.170 36.437 Output Total 810 1057 30 Balance -256.731 -161.830 6.437 Weight 105.8 kg 108.9 kg Intake: IV 345 312 26 Lactated Ringers 1,000 ml 270 240 20 @ 20 mls/hr IV .Q24H [facility] Rx#:[id number] Pressure Bags 75 72 6 Intake, IV Titration 208.269 43.170 10.437 Amount Insulin Regular 100 unit 58.269 43.170 10.437 In Sodium Chloride 0.9% 100 ml @ Per Protocol IV .Q0M [facility] Rx#:[id number] Magnesium Sulfate-D5w Pmx 100 1 gm In Dextrose/Water 1 100ml.bag @ 100 mls/hr IVPB Q1H [facility] Rx#: [id number] ceFAZolin 2 gm In Sodium 50 Chloride 0.9% 50 ml @ 100 mls/hr IVPB Q8HR [facility] Rx# :[id number] Oral 540 Output: Chest Tube Drainage 195 290 Chest Tube Left Left 30 90 Pleural/Mediastinal Chest Tube Mediastinal 165 200 Urine 615 767 30 Other: Voiding Method Indwelling Catheter ABP, PAP, CO, CI - Last Documented Arterial Blood Pressure 123/47 Pulmonary Artery Pressure 27/5 Cardiac Output 6.3 Cardiac Index 2.9 - Constitutional General appearance: Present: cooperative, no acute distress - Respiratory Details: Lungs sounds diminished bilaterally. Respirations even, nonlabored. Currently on 4 L high flow nasal cannula with oxygen saturation 93%. Able to achieve 7209-9510 mL on his incentive spirometry. Strong cough. Mediastinal and left pleural chest tubes present to continuous wall suction, no air leaks present. Mediastinal chest tube with 130 mL serosanguineous drainage overnight, 400 mL in the last 24 hours. Left pleural chest tube with 60 mL serosanguineous drainage overnight, 120 mL in the last 24 hours. - Cardiovascular Details: S1, S2 present. Regular rate and rhythm, sinus rhythm on telemetry. Sternum stable. A/V epicardial pacemaker wires present, grounded. Palpable peripheral pulses bilaterally. No edema present. No calf pain or tenderness noted. Heart hugger in place with patient demonstrating appropriate use. Antiembolism stockings, SCDs present. - Gastrointestinal Gastrointestinal Comment(s): Abdomen soft, nontender, nondistended. Active bowel sounds present 4 quadrants. Tolerating diet. Positive flatus. - Genitourinary Genitourinary Comment(s): Eugene present draining clear, yellow urine. Output 30-70 mL/h overnight. - Integumentary Integumentary Comment(s): Skin is warm and dry with evidence of good perfusion. Anterior chest incision well approximated and covered with dry intact dressing. Right lower extremity EVH site well approximated without redness or drainage. Left radial artery harvest site well approximated without redness or drainage. 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 - Neurologic Neurologic: Present: CNII-XII intact - Musculoskeletal Musculoskeletal: Present: gait normal, strength equal bilaterally - Psychiatric Psychiatric: Present: A&O x's 3, appropriate affect, intact judgment & insight - Allied health notes Allied health notes reviewed: nursing - Labs CBC & Chem 7: 11/19/19 04:15 11/19/19 04:15 Labs: Abnormal Lab Results - Last 24 Hours (Table) 11/18/19 11/18/19 11/18/19 Range/Units 09:05 10:04 11:12 WBC (3.8-10.6) k/uL RBC (4.30-5.90) m/uL Hgb (13.0-17.5) gm/dL Hct (39.0-53.0) % Plt Count (150-450) k/uL Neutrophils # (1.3-7.7) k/uL Sodium (137-145) mmol/L Glucose (74-99) mg/dL POC Glucose (mg/dL) 198 H 169 H 119 H (75-99) mg/dL Calcium (8.4-10.2) mg/dL Ionized Calcium Robert (4.5-5.3) mg/dL Total Protein (6.3-8.2) g/dL Albumin (3.5-5.0) g/dL 11/18/19 11/18/19 11/18/19 Range/Units 12:09 13:32 14:02 WBC (3.8-10.6) k/uL RBC (4.30-5.90) m/uL Hgb (13.0-17.5) gm/dL Hct (39.0-53.0) % Plt Count (150-450) k/uL Neutrophils # (1.3-7.7) k/uL Sodium (137-145) mmol/L Glucose (74-99) mg/dL POC Glucose (mg/dL) 114 H 189 H 206 H (75-99) mg/dL Calcium (8.4-10.2) mg/dL Ionized Calcium Robert (4.5-5.3) mg/dL Total Protein (6.3-8.2) g/dL Albumin (3.5-5.0) g/dL 11/18/19 11/18/19 11/18/19 Range/Units 15:25 16:20 17:32 WBC (3.8-10.6) k/uL RBC (4.30-5.90) m/uL Hgb (13.0-17.5) gm/dL Hct (39.0-53.0) % Plt Count (150-450) k/uL Neutrophils # (1.3-7.7) k/uL Sodium (137-145) mmol/L Glucose (74-99) mg/dL POC Glucose (mg/dL) 165 H 129 H 112 H (75-99) mg/dL Calcium (8.4-10.2) mg/dL Ionized Calcium Robert (4.5-5.3) mg/dL Total Protein (6.3-8.2) g/dL Albumin (3.5-5.0) g/dL 11/18/19 11/18/19 11/18/19 Range/Units 18:51 18:53 19:54 WBC (3.8-10.6) k/uL RBC (4.30-5.90) m/uL Hgb (13.0-17.5) gm/dL Hct (39.0-53.0) % Plt Count (150-450) k/uL Neutrophils # (1.3-7.7) k/uL Sodium (137-145) mmol/L Glucose (74-99) mg/dL POC Glucose (mg/dL) 297 H 117 H 158 H (75-99) mg/dL Calcium (8.4-10.2) mg/dL Ionized Calcium Robert (4.5-5.3) mg/dL Total Protein (6.3-8.2) g/dL Albumin (3.5-5.0) g/dL 11/18/19 11/18/19 11/18/19 Range/Units 20:58 21:48 23:02 WBC (3.8-10.6) k/uL RBC (4.30-5.90) m/uL Hgb (13.0-17.5) gm/dL Hct (39.0-53.0) % Plt Count (150-450) k/uL Neutrophils # (1.3-7.7) k/uL Sodium (137-145) mmol/L Glucose (74-99) mg/dL POC Glucose (mg/dL) 163 H 151 H 127 H (75-99) mg/dL Calcium (8.4-10.2) mg/dL Ionized Calcium Robert (4.5-5.3) mg/dL Total Protein (6.3-8.2) g/dL Albumin (3.5-5.0) g/dL 11/19/19 11/19/19 11/19/19 Range/Units 00:31 02:14 04:15 WBC 14.2 H (3.8-10.6) k/uL RBC 2.87 L (4.30-5.90) m/uL Hgb 8.6 L D (13.0-17.5) gm/dL Hct 26.9 L (39.0-53.0) % Plt Count 141 L (150-450) k/uL Neutrophils # 11.8 H (1.3-7.7) k/uL Sodium (137-145) mmol/L Glucose (74-99) mg/dL POC Glucose (mg/dL) 110 H 128 H (75-99) mg/dL Calcium (8.4-10.2) mg/dL Ionized Calcium Robert (4.5-5.3) mg/dL Total Protein (6.3-8.2) g/dL Albumin (3.5-5.0) g/dL 11/19/19 11/19/19 11/19/19 Range/Units 04:15 04:18 06:17 WBC (3.8-10.6) k/uL RBC (4.30-5.90) m/uL Hgb (13.0-17.5) gm/dL Hct (39.0-53.0) % Plt Count (150-450) k/uL Neutrophils # (1.3-7.7) k/uL Sodium 132 L (137-145) mmol/L Glucose 116 H (74-99) mg/dL POC Glucose (mg/dL) 122 H 135 H (75-99) mg/dL Calcium 7.3 L (8.4-10.2) mg/dL Ionized Calcium Robert 4.3 L (4.5-5.3) mg/dL Total Protein 4.8 L (6.3-8.2) g/dL Albumin 2.7 L (3.5-5.0) g/dL 11/19/19 Range/Units 08:23 WBC (3.8-10.6) k/uL RBC (4.30-5.90) m/uL Hgb (13.0-17.5) gm/dL Hct (39.0-53.0) % Plt Count (150-450) k/uL Neutrophils # (1.3-7.7) k/uL Sodium (137-145) mmol/L Glucose (74-99) mg/dL POC Glucose (mg/dL) 254 H (75-99) mg/dL Calcium (8.4-10.2) mg/dL Ionized Calcium Robert (4.5-5.3) mg/dL Total Protein (6.3-8.2) g/dL Albumin (3.5-5.0) g/dL - Imaging and Cardiology Chest x-ray: image reviewed Assessment and Plan Assessment: 1. Symptomatic multivessel coronary artery disease with unstable angina, status post four-vessel CABG 2. Preserved left ventricular systolic function with EF 60%, mild mitral regurgitation and mild tricuspid regurgitation 3. Hypertension 4. Hyperlipidemia, LDL 163, cholesterol 249, triglycerides 214 5. Type 2 diabetes mellitus with preoperative hemoglobin A1c 8% 6. Obesity 7. Osteoarthritis 8. Current tobacco dependence 9. Mild COPD with preoperative FEV1 75% of predicted 10. Postoperative acute blood loss anemia, thrombocytopenia, leukocytosis Plan: 1. Continue aspirin, statin, Plavix, beta js therapy. Will increase beta js therapy as tolerated, increased today to 50 mg twice a day 2. Continue Norvasc for radial artery spasm prophylaxis. Do not discontinue CCB without discussing with cardiac surgery 3. Cozaar started yesterday for afterload reduction, increased to 50 mg daily today 4. Wean O2 as tolerated. Encourage incentive spirometry use 10 times every hour while awake. Bronchodilators per pulmonology. 5. Increase activity, ambulate as tolerated. PT/OT/cardiac rehab consult 6. Will monitor daily labs and x-rays. Electrolyte replacement per protocol. No blood transfusion today. 7. Pain control with current medication regimen. 8. Likely will discontinue Cordis, arterial line, chest tubes today 9. Discontinue Eugene catheter. May bladder scan and straight cath for greater than 300 mL residual. Patient to use urinal for strict accurate intake and output 10. Daily weight 12. Insulin/diabetic management per primary care service 13. More recommendations to follow as patient progresses Time with Patient: Greater than 30
[2019-11-19 09:21] LABS: Glucose,Whole Blood 252 mg/dL (75-99)
--- NOTE | 2019-11-19 09:23 | XR ---
EXAMINATION TYPE: XR chest 1V portable DATE OF EXAM: 11/19/2019 COMPARISON: 11/18/2019 HISTORY: Post cardiac surgery TECHNIQUE: Single frontal view of the chest is obtained. FINDINGS: [place]-Kwame catheter is been removed and there is a left-sided chest tube. No sizable pneumo thorax however, there is subcutaneous emphysema involving the soft tissues of the left neck. I basila r consolidation and small effusion. Heart size stable. IMPRESSION: 1. Bilateral lower lobe infiltrate and small effusion stable. Small amount of subcutaneous emphysema overlying the soft tissues of the left neck. No sizable pneumothorax.
--- NOTE | 2019-11-19 10:03 | P.PN ---
Subjective Progress Note Date: 11/19/19 Principal diagnosis: Multivessel coronary artery disease, status post four-vessel bypass grafting On 11/19/2019 patient seen in follow-up in intensive care unit, today is postoperative day 2 status post coronary artery bypass grafting with WALDEN to the LAD, left radial artery to the first obtuse marginal artery reverse SVG to the second up to his marginal, reverse SVG to the PDA, with endoscopic harvesting of the left radial artery and right greater saphenous vein, left atrial appendage ligation with AtriCure clip. Patient is doing very well, he is on 4 L of oxygen with a pulse ox of 93%, hemodynamically stable, is in the sinus mechanism, slightly tachycardic, rate of 90-100 BPM. He is on 0.9 normal seen at a rate of 20 ML per hour, he is on insulin 10.5 units per hour, his [place]-Kwame catheter has been discontinued, hemodynamically patient has been stable, he still has the mediastinal chest tube with 365 ML of thin serosanguineous output last 24 hours, left pleural chest tube and mediastinal chest tube with 120 ML of serosanguineous output, no air leak, chest tubes remain to wall suction. Eugene catheter has been discontinued. Patient is achieving 1500 mL on his incentive spirometer, on sounds are positive for some mild bibasilar crackles, today's chest x-ray has been reviewed showing bilateral lower lobe infiltrates and small pleural effusions that are stable in appearance, small amount of subcutaneous emphysema overlying soft tissues of the left neck, no signs of pneumothorax. His labs have been noted, white blood cell count is 14.2, hemoglobin is 8.6, sodium is 132, the rest of electrolytes and renal profile are within normal limits. Patient did ambulate around the unit, tolerated activity well, his pain is reasonably controlled, denies any nausea or vomiting, he is tolerating oral diet Objective - Vital Signs Vital signs: Vital Signs Temp 99.1 F 11/19/19 04:00 Pulse 99 11/19/19 09:05 Resp 22 11/19/19 07:00 BP 130/65 11/19/19 07:00 Pulse Ox 93 L 11/19/19 07:00 Intake & Output 11/18/19 11/19/19 11/19/19 18:59 06:59 18:59 Intake Total 553.269 895.170 98.512 Output Total 810 1057 155 Balance -256.731 -161.830 -56.488 Weight 105.8 kg 108.9 kg Intake: IV 345 312 78 Lactated Ringers 1,000 ml 270 240 60 @ 20 mls/hr IV .Q24H [facility] Rx#:[id number] Pressure Bags 75 72 18 Intake, IV Titration 208.269 43.170 20.512 Amount Insulin Regular 100 unit 58.269 43.170 20.512 In Sodium Chloride 0.9% 100 ml @ Per Protocol IV .Q0M [facility] Rx#:[id number] Magnesium Sulfate-D5w Pmx 100 1 gm In Dextrose/Water 1 100ml.bag @ 100 mls/hr IVPB Q1H [facility] Rx#: [id number] ceFAZolin 2 gm In Sodium 50 Chloride 0.9% 50 ml @ 100 mls/hr IVPB Q8HR [facility] Rx# :[id number] Oral 540 Output: Chest Tube Drainage 195 290 50 Chest Tube Left Left 30 90 30 Pleural/Mediastinal Chest Tube Mediastinal 165 200 20 Urine 615 767 105 Other: Voiding Method Indwelling Catheter Indwelling Catheter ABP, PAP, CO, CI - Last Documented Arterial Blood Pressure 123/47 Pulmonary Artery Pressure 27/5 Cardiac Output 6.3 Cardiac Index 2.9 - Exam GENERAL EXAM: Alert, very pleasant, 64-year-old white male, on 4 L of oxygen a pulse ox of 93%, comfortable in no apparent distress. HEAD: Normocephalic/atraumatic. EYES: Normal reaction of pupils, equal size. Conjunctiva pink, sclera white. NOSE: Clear with pink turbinates. THROAT: No erythema or exudates. NECK: No masses, no JVD, no thyroid enlargement, no adenopathy. CHEST: No chest wall deformity. Symmetrical expansion. Midsternal incision clean dry and intact, with [address], mediastinal, and left pleural and mediastinal chest tubes were connected together, epicardial wires to an external pacemaker box with the backup rate with VVI at 50. Small amount of thin serosanguineous output from the chest tubes, no air leak, connected to the wall suction LUNGS: Equal air entry with no crackles, wheeze, rhonchi or dullness. CVS: Regular rate and rhythm, normal S1 and S2, no gallops, no murmurs, no rubs ABDOMEN: Soft, nontender. No hepatosplenomegaly, normal bowel sounds, no guarding or rigidity. EXTREMITIES: No clubbing, no edema, no cyanosis, 2+ pulses and upper and lower extremities. MUSCULOSKELETAL: Muscle strength and tone normal. SPINE: No scoliosis or deformity SKIN: No rashes. Left radial graft harvest site is covered with a dressing, clean dry and intact, left leg incision covered with the Rui wrap clean dry and intact CENTRAL NERVOUS SYSTEM: Alert and oriented -3. No focal deficits, tone is normal in all 4 extremities. PSYCHIATRIC: Alert and oriented -3. Appropriate affect. Intact judgment and insight. - Labs CBC & Chem 7: 11/19/19 04:15 11/19/19 04:15 Labs: Abnormal Lab Results - Last 24 Hours (Table) 11/18/19 11/18/19 11/18/19 Range/Units 10:04 11:12 12:09 WBC (3.8-10.6) k/uL RBC (4.30-5.90) m/uL Hgb (13.0-17.5) gm/dL Hct (39.0-53.0) % Plt Count (150-450) k/uL Neutrophils # (1.3-7.7) k/uL Sodium (137-145) mmol/L Glucose (74-99) mg/dL POC Glucose (mg/dL) 169 H 119 H 114 H (75-99) mg/dL Calcium (8.4-10.2) mg/dL Ionized Calcium Robert (4.5-5.3) mg/dL Total Protein (6.3-8.2) g/dL Albumin (3.5-5.0) g/dL 11/18/19 11/18/19 11/18/19 Range/Units 13:32 14:02 15:25 WBC (3.8-10.6) k/uL RBC (4.30-5.90) m/uL Hgb (13.0-17.5) gm/dL Hct (39.0-53.0) % Plt Count (150-450) k/uL Neutrophils # (1.3-7.7) k/uL Sodium (137-145) mmol/L Glucose (74-99) mg/dL POC Glucose (mg/dL) 189 H 206 H 165 H (75-99) mg/dL Calcium (8.4-10.2) mg/dL Ionized Calcium Robert (4.5-5.3) mg/dL Total Protein (6.3-8.2) g/dL Albumin (3.5-5.0) g/dL 11/18/19 11/18/19 11/18/19 Range/Units 16:20 17:32 18:51 WBC (3.8-10.6) k/uL RBC (4.30-5.90) m/uL Hgb (13.0-17.5) gm/dL Hct (39.0-53.0) % Plt Count (150-450) k/uL Neutrophils # (1.3-7.7) k/uL Sodium (137-145) mmol/L Glucose (74-99) mg/dL POC Glucose (mg/dL) 129 H 112 H 297 H (75-99) mg/dL Calcium (8.4-10.2) mg/dL Ionized Calcium Robert (4.5-5.3) mg/dL Total Protein (6.3-8.2) g/dL Albumin (3.5-5.0) g/dL 11/18/19 11/18/19 11/18/19 Range/Units 18:53 19:54 20:58 WBC (3.8-10.6) k/uL RBC (4.30-5.90) m/uL Hgb (13.0-17.5) gm/dL Hct (39.0-53.0) % Plt Count (150-450) k/uL Neutrophils # (1.3-7.7) k/uL Sodium (137-145) mmol/L Glucose (74-99) mg/dL POC Glucose (mg/dL) 117 H 158 H 163 H (75-99) mg/dL Calcium (8.4-10.2) mg/dL Ionized Calcium Robert (4.5-5.3) mg/dL Total Protein (6.3-8.2) g/dL Albumin (3.5-5.0) g/dL 11/18/19 11/18/19 11/19/19 Range/Units 21:48 23:02 00:31 WBC (3.8-10.6) k/uL RBC (4.30-5.90) m/uL Hgb (13.0-17.5) gm/dL Hct (39.0-53.0) % Plt Count (150-450) k/uL Neutrophils # (1.3-7.7) k/uL Sodium (137-145) mmol/L Glucose (74-99) mg/dL POC Glucose (mg/dL) 151 H 127 H 110 H (75-99) mg/dL Calcium (8.4-10.2) mg/dL Ionized Calcium Robert (4.5-5.3) mg/dL Total Protein (6.3-8.2) g/dL Albumin (3.5-5.0) g/dL 11/19/19 11/19/19 11/19/19 Range/Units 02:14 04:15 04:15 WBC 14.2 H (3.8-10.6) k/uL RBC 2.87 L (4.30-5.90) m/uL Hgb 8.6 L D (13.0-17.5) gm/dL Hct 26.9 L (39.0-53.0) % Plt Count 141 L (150-450) k/uL Neutrophils # 11.8 H (1.3-7.7) k/uL Sodium 132 L (137-145) mmol/L Glucose 116 H (74-99) mg/dL POC Glucose (mg/dL) 128 H (75-99) mg/dL Calcium 7.3 L (8.4-10.2) mg/dL Ionized Calcium Robert 4.3 L (4.5-5.3) mg/dL Total Protein 4.8 L (6.3-8.2) g/dL Albumin 2.7 L (3.5-5.0) g/dL 11/19/19 11/19/19 11/19/19 Range/Units 04:18 06:17 08:23 WBC (3.8-10.6) k/uL RBC (4.30-5.90) m/uL Hgb (13.0-17.5) gm/dL Hct (39.0-53.0) % Plt Count (150-450) k/uL Neutrophils # (1.3-7.7) k/uL Sodium (137-145) mmol/L Glucose (74-99) mg/dL POC Glucose (mg/dL) 122 H 135 H 254 H (75-99) mg/dL Calcium (8.4-10.2) mg/dL Ionized Calcium Robert (4.5-5.3) mg/dL Total Protein (6.3-8.2) g/dL Albumin (3.5-5.0) g/dL 11/19/19 Range/Units 09:19 WBC (3.8-10.6) k/uL RBC (4.30-5.90) m/uL Hgb (13.0-17.5) gm/dL Hct (39.0-53.0) % Plt Count (150-450) k/uL Neutrophils # (1.3-7.7) k/uL Sodium (137-145) mmol/L Glucose (74-99) mg/dL POC Glucose (mg/dL) 252 H (75-99) mg/dL Calcium (8.4-10.2) mg/dL Ionized Calcium Robert (4.5-5.3) mg/dL Total Protein (6.3-8.2) g/dL Albumin (3.5-5.0) g/dL Assessment and Plan Plan: Assessment: #1. Symptomatic multivessel coronary artery disease with unstable angina, status post four-vessel CABG, with WALDEN to the LAD, left radial artery to the first OM, reverse SVG to the second OM, reverse SVG to the PDA, endoscopic harvesting of the left radial artery, and right greater saphenous vein, left atrial appendage ligation with 35mm AtriClip and intraoperative transesophageal echocardiogram and a peak aortic scanning, postoperative day 2 #2. Postoperative acute blood loss anemia and thrombocytopenia likely related to hemodilution, and cardiopulmonary bypass pump #3. Hypertension #4. Hyperlipidemia #5. Type 2 diabetes mellitus #6. Obesity #7. Osteoarthritis #8. Current tobacco dependence #9. Mild COPD with preoperative FEV1 of 75% of predicted Plan: His chest x-ray has been reviewed showing bilateral lower lobe infiltrates and small effusions, no pneumothorax, vital signs are stable, continue working on incentive spirometer, deep breathing and coughing and ambulation, today's labs have been reviewed. GI and DVT prophylaxis per CT surgery. Continue to follow in the intensive care unit along with cardiothoracic surgery I performed a history & physical examination of the patient and discussed their management with my nurse practitioner, Marisela Salvador. I reviewed the nurse practitioner's note and agree with the documented findings and plan of care. Lung sounds are positive for a few bibasilar crackles. The findings and the impression was discussed with the patient. I attest to the documentation by the nurse practitioner. Time with Patient: Less than 30
[2019-11-19 10:14] LABS: Glucose,Whole Blood 203 mg/dL (75-99)
[2019-11-19 11:11] LABS: Glucose,Whole Blood 144 mg/dL (75-99)
[2019-11-19] MEDS ORDERED: LOSARTAN 50 MG TAB PO SCH (12:00)
[2019-11-19 12:11] LABS: Glucose,Whole Blood 121 mg/dL (75-99)
[2019-11-19] MEDS: INSULIN ASPART (NovoLOG) 100 UNIT/ML VIAL SQ SCH ×3 (12:28→20:58)
[2019-11-19] MEDS: LACTATED RINGERS 1,000 ML IV SCH (12:30)
--- NOTE | 2019-11-19 14:40 | PN ---
PROGRESS NOTE Mr. Bates is a 54-year-old male, status post coronary artery bypass grafting. He is doing well this morning. His breathing is stable. He denies any symptoms of chest pain. He continued to be in sinus mechanism. He is feeling stronger overall. He has received a WALDEN to the LAD, radial to the obtuse marginal branch, saphenous vein graft to the obtuse marginal branch 2 and saphenous vein graft to the PDA with ligation of selective atrial appendage. He continues to be at this time on aspirin once a day, Plavix 75 mg daily, Lipitor 40 mg daily, losartan 50 mg daily and metoprolol tartrate 50 mg twice a day. PHYSICAL EXAMINATION: Blood pressure 123/47 with a heart rate in 90s. LUNGS: With mild decreased breath sounds at the bases. No wheezes. HEART: Regular rate and rhythm S1, S2. No S3 with no rub noted. ABDOMEN: Soft and nontender. EXTREMITIES: With Rui wrap in place. LAB DATA: Revealed hemoglobin 8.6. BUN creatinine of 20 and 1.39. IMPRESSION: 1. Status post coronary artery bypass grafting, stable. 2. Hypertension under good control. 3. Hyperlipidemia. 4. Prior history of smoking. 5. History of diabetes. RECOMMENDATION: Will continue current therapy. Continue to follow his blood pressure and adjust his regimen accordingly. Continue incentive spirometry. MMODL / IJN: [id number] /
[2019-11-19] MEDS: DILTIAZEM ORAL 30 MG TAB PO SCH (16:52)
[2019-11-19 17:17] LABS: Glucose,Whole Blood 197 mg/dL (75-99)
[2019-11-19] MEDS: TAMSULOSIN 0.4 MG CAP.ER.24H PO SCH (18:28)
[2019-11-19 20:52] LABS: Glucose,Whole Blood 153 mg/dL (75-99)
[2019-11-19] MEDS: SENNOSIDES-DOCUSATE SODIUM 1 EACH TAB PO SCH (20:57)
--- NOTE | 2019-11-19 21:53 | P.PN ---
Subjective This is a pleasant 64 years old male With past medical history of coronary artery disease, diabetes mellitus, hypertension, hyperlipidemia, osteoarthritis, panic attack. He was admitted for coronary artery bypass grafting secondary to an stable angina with multiple vessels affected, with ejection fraction 60%. Today is postoperative day #1 Patient is monitored in the ICU, without complaint. Table. No dizziness.. Hemodynamically stable send labs reviewed Patient is a started on aspirin 325 mg and Plavix, and is on metoprolol and JAYNE inhibitor and statin. Patient has mild leukocytosis of 12 point okay. BMP and liver enzymes were unremarkable. Sugar controlled while on insulin drip at 5.5 units per hour. 11/19/19 Patient is awake and alert today is able to participate in physical therapy. He denies chest pain or dyspnea. He tolerates diet well today. Vitals stable, glucose controlled, mild leukocytosis. With mild hyponatremia no patsy Objective - Vital Signs Vital signs: Vital Signs Temp 98.3 F 11/19/19 16:04 Pulse 100 11/19/19 17:00 Resp 18 11/19/19 17:00 BP 118/64 11/19/19 17:00 Pulse Ox 95 11/19/19 17:00 Intake & Output 11/19/19 11/19/19 11/20/19 06:59 18:59 06:59 Intake Total 895.170 879.222 Output Total 1057 525 Balance -161.830 354.222 Weight 108.9 kg Intake: IV 312 234 Lactated Ringers 1,000 ml 240 180 @ 20 mls/hr IV .Q24H MICHELLE Rx#:[id number] Pressure Bags 72 54 Intake, IV Titration 43.170 45.222 Amount Insulin Regular 100 unit 43.170 45.222 In Sodium Chloride 0.9% 100 ml @ Per Protocol IV .Q0M MICHELLE Rx#:[id number] Oral 540 600 Output: Chest Tube Drainage 290 120 Chest Tube Left Left 90 50 Pleural/Mediastinal Chest Tube Mediastinal 200 70 Urine 767 405 Other: Voiding Method Indwelling Catheter Indwelling Catheter # Voids 1 ABP, PAP, CO, CI - Last Documented Arterial Blood Pressure 115/45 Pulmonary Artery Pressure 27/5 Cardiac Output 6.3 Cardiac Index 2.9 - Exam GENERAL: The patient is alert and oriented x3, not in any acute distress. Well developed, well nourished. HEENT: Pupils are round and equally reacting to light. EOMI. No scleral icterus. No conjunctival pallor. Normocephalic, atraumatic. No pharyngeal erythema. No thyromegaly. CARDIOVASCULAR: S1 and S2 present. No murmurs, rubs, or gallops. Sternal wound with dressing PULMONARY: Chest is clear to auscultation, no wheezing or crackles. ABDOMEN: Soft, nontender, nondistended, normoactive bowel sounds. No palpable organomegaly. MUSCULOSKELETAL: No joint swelling or deformity. EXTREMITIES: No cyanosis, clubbing, or pedal edema. NEUROLOGICAL: Gross neurological examination did not reveal any focal deficits. SKIN: No rashes. No petechiae - Labs CBC & Chem 7: 11/19/19 04:15 11/19/19 04:15 Labs: Abnormal Lab Results - Last 24 Hours (Table) 11/18/19 11/18/19 11/18/19 Range/Units 19:54 20:58 21:48 WBC (3.8-10.6) k/uL RBC (4.30-5.90) m/uL Hgb (13.0-17.5) gm/dL Hct (39.0-53.0) % Plt Count (150-450) k/uL Neutrophils # (1.3-7.7) k/uL Sodium (137-145) mmol/L Glucose (74-99) mg/dL POC Glucose (mg/dL) 158 H 163 H 151 H (75-99) mg/dL Calcium (8.4-10.2) mg/dL Ionized Calcium Robert (4.5-5.3) mg/dL Total Protein (6.3-8.2) g/dL Albumin (3.5-5.0) g/dL 11/18/19 11/19/19 11/19/19 Range/Units 23:02 00:31 02:14 WBC (3.8-10.6) k/uL RBC (4.30-5.90) m/uL Hgb (13.0-17.5) gm/dL Hct (39.0-53.0) % Plt Count (150-450) k/uL Neutrophils # (1.3-7.7) k/uL Sodium (137-145) mmol/L Glucose (74-99) mg/dL POC Glucose (mg/dL) 127 H 110 H 128 H (75-99) mg/dL Calcium (8.4-10.2) mg/dL Ionized Calcium Robert (4.5-5.3) mg/dL Total Protein (6.3-8.2) g/dL Albumin (3.5-5.0) g/dL 11/19/19 11/19/19 11/19/19 Range/Units 04:15 04:15 04:18 WBC 14.2 H (3.8-10.6) k/uL RBC 2.87 L (4.30-5.90) m/uL Hgb 8.6 L D (13.0-17.5) gm/dL Hct 26.9 L (39.0-53.0) % Plt Count 141 L (150-450) k/uL Neutrophils # 11.8 H (1.3-7.7) k/uL Sodium 132 L (137-145) mmol/L Glucose 116 H (74-99) mg/dL POC Glucose (mg/dL) 122 H (75-99) mg/dL Calcium 7.3 L (8.4-10.2) mg/dL Ionized Calcium Robert 4.3 L (4.5-5.3) mg/dL Total Protein 4.8 L (6.3-8.2) g/dL Albumin 2.7 L (3.5-5.0) g/dL 11/19/19 11/19/19 11/19/19 Range/Units 06:17 08:23 09:19 WBC (3.8-10.6) k/uL RBC (4.30-5.90) m/uL Hgb (13.0-17.5) gm/dL Hct (39.0-53.0) % Plt Count (150-450) k/uL Neutrophils # (1.3-7.7) k/uL Sodium (137-145) mmol/L Glucose (74-99) mg/dL POC Glucose (mg/dL) 135 H 254 H 252 H (75-99) mg/dL Calcium (8.4-10.2) mg/dL Ionized Calcium Robert (4.5-5.3) mg/dL Total Protein (6.3-8.2) g/dL Albumin (3.5-5.0) g/dL 11/19/19 11/19/19 11/19/19 Range/Units 10:12 11:09 12:09 WBC (3.8-10.6) k/uL RBC (4.30-5.90) m/uL Hgb (13.0-17.5) gm/dL Hct (39.0-53.0) % Plt Count (150-450) k/uL Neutrophils # (1.3-7.7) k/uL Sodium (137-145) mmol/L Glucose (74-99) mg/dL POC Glucose (mg/dL) 203 H 144 H 121 H (75-99) mg/dL Calcium (8.4-10.2) mg/dL Ionized Calcium Robert (4.5-5.3) mg/dL Total Protein (6.3-8.2) g/dL Albumin (3.5-5.0) g/dL 11/19/19 Range/Units 17:15 WBC (3.8-10.6) k/uL RBC (4.30-5.90) m/uL Hgb (13.0-17.5) gm/dL Hct (39.0-53.0) % Plt Count (150-450) k/uL Neutrophils # (1.3-7.7) k/uL Sodium (137-145) mmol/L Glucose (74-99) mg/dL POC Glucose (mg/dL) 197 H (75-99) mg/dL Calcium (8.4-10.2) mg/dL Ionized Calcium Robert (4.5-5.3) mg/dL Total Protein (6.3-8.2) g/dL Albumin (3.5-5.0) g/dL Assessment and Plan Assessment: Multiple vessel coronary artery disease status post CABG Diabetes mellitus Hypertension Hyperlipidemia Primary osteoarthritis History of panic attack Plan: This is a pleasant 64 years old male who presents with CABG. Patient emerged closely in the ICU. Continue with aspirin and Plavix. Continue with insulin. Patient is monitored closely by several consultants including cardiology and pulmonary besides the cardio thoracic surgery primary team. Labs and medication were reviewed.. Continue same treatment. Continue with symptomatic treatment. Resume home medication. Monitor lytes and vitals. DVT and GI prophylaxis. Further recommendations of the clinical course of the patient DVT prophylaxis: Subcutaneous heparin GI Prophylaxis: Ppi
[2019-11-20] MEDS: KETOROLAC 15 MG/ML 1 ML VIAL IVP SCH ×3 (00:33→12:13)
[2019-11-20] MEDS: DILTIAZEM ORAL 30 MG TAB PO SCH ×4 (00:33→23:19)
[2019-11-20] MEDS: HEPARIN SODIUM,PORCINE 5,000 UNIT/ML 1 ML VIAL SQ SCH ×4 (00:34→23:19)
[2019-11-20 03:01] LABS: Glucose,Whole Blood 174 mg/dL (75-99)
[2019-11-20] MEDS: INSULIN ASPART (NovoLOG) 100 UNIT/ML VIAL SQ SCH ×5 (03:04→21:02)
[2019-11-20] MEDS: ACETAMINOPHEN TAB 500 MG TAB PO PRN (03:07)
[2019-11-20 04:37] LABS: HCT 25.4 % (39.0-53.0); HGB 8.3 gm/dL (13.0-17.5); MCH 30.4 pg (25.0-35.0); MCHC 32.7 g/dL (31.0-37.0); MCV 93.2 fL (80.0-100.0); Mean Platelet Volume 8.7; Platelet Count 167 k/uL (150-450); RBC 2.73 m/uL (4.30-5.90); RDW 14.3 % (11.5-15.5); WBC 11.6 k/uL (3.8-10.6)
[2019-11-20 04:59] LABS: African American GFR (CKD) >90 (>60 ml/min/1.73 sqM); Anion Gap 1 mmol/L; Blood Urea Nitrogen 19 mg/dL (9-20); Calcium 7.2 mg/dL (8.4-10.2); Carbon Dioxide 26 mmol/L (22-30); Chloride 104 mmol/L (98-107); Glucose 150 mg/dL (74-99); Non-African American GFR(CKD) 84 (>60 ml/min/1.73 sqM); Potassium 4.6 mmol/L (3.5-5.1); Sodium 131 mmol/L (137-145)
[2019-11-20 07:11] LABS: Glucose,Whole Blood 159 mg/dL (75-99)
[2019-11-20] MEDS: IPRATROPIUM-ALBUTEROL 3 ML NEB INHALATION SCH ×4 (07:59→21:23)
[2019-11-20] MEDS ORDERED: FUROSEMIDE 10 MG/ML 4 ML VIAL IV STA (08:02)
[2019-11-20] MEDS ORDERED: MAGNESIUM HYDROXIDE 2,400 MG/10 ML CUP PO STA (08:26)
--- NOTE | 2019-11-20 08:31 | P.PN ---
Subjective Progress Note Date: 11/20/19 Principal diagnosis: Symptomatic multivessel coronary artery disease with unstable angina, preserved left ventricular systolic function with EF 60%, mild mitral regurgitation and m ild tricuspid regurgitation. Previous medical history of hypertension, hyperlipidemia, type 2 diabetes mellitus with preoperative hemoglobin A1c 8%, obesity, osteoarthritis, current tobacco dependence, and mild COPD with preoperative FEV1 75% of predicted POD #3 coronary artery bypass grafting with left internal mammary artery to the left anterior descending artery, left radial artery to the first obtuse marginal artery, reverse saphenous vein graft to the second obtuse marginal artery, reverse saphenous vein graft to the posterior descending artery, endoscopic harvesting of the left radial artery, endoscopic harvesting of the right greater saphenous vein, left atrial appendage ligation with 35 mm AtriCure clip, intraoperative transesophageal echocardiogram and epi-aortic scanning Postoperative acute blood loss anemia and thrombocytopenia, expected given hemodilution and cardiopulmonary bypass pump Postoperative leukocytosis, expected, reactive Postoperative urinary retention, unexpected The patient is currently sitting up in a recliner in the intensive care unit in no acute distress. He states pain is well controlled on current medication regimen, denies shortness of breath. He remains in normal sinus rhythm and hemodynamically stable on no inotropes or pressors. Patient did have urinary retention last night requiring straight catheterization, flomax added. Objective - Vital Signs Vital signs: Vital Signs Temp 98.3 F 11/20/19 04:00 Pulse 101 H 11/20/19 08:01 Resp 19 11/20/19 04:00 BP 101/62 11/20/19 04:00 Pulse Ox 93 L 11/20/19 04:00 Intake & Output 11/19/19 11/20/19 11/20/19 18:59 06:59 18:59 Intake Total 879.222 200 0 Output Total 525 1450 0 Balance 354.222 -1250 0 Weight 108.1 kg Intake: IV 234 0 0 Lactated Ringers 1,000 ml 180 0 0 @ 20 mls/hr IV .Q24H MICHELLE Rx#:[id number] Pressure Bags 54 Intake, IV Titration 45.222 Amount Insulin Regular 100 unit 45.222 In Sodium Chloride 0.9% 100 ml @ Per Protocol IV .Q0M MICHELLE Rx#:[id number] Oral 600 200 Output: Chest Tube Drainage 120 Chest Tube Left Left 50 Pleural/Mediastinal Chest Tube Mediastinal 70 Urine 105 725 0 Post Void Residual 300 725 Other: Voiding Method Indwelling Catheter Urinal # Voids 1 ABP, PAP, CO, CI - Last Documented Arterial Blood Pressure 115/45 Pulmonary Artery Pressure 27/5 Cardiac Output 6.3 Cardiac Index 2.9 - Constitutional General appearance: Present: cooperative, no acute distress - Respiratory Details: Lungs sounds diminished bilaterally. Respirations even, nonlabored. Currently on 4 L high flow nasal cannula with oxygen saturation 96%. Able to achieve 1500 mL on his incentive spirometry. Strong cough with yellow sputum. - Cardiovascular Details: S1, S2 present. Regular rate and rhythm, sinus rhythm on telemetry. Sternum stable. A/V epicardial pacemaker wires present, grounded. Palpable peripheral pulses bilaterally. No edema present. No calf pain or tenderness noted. Heart hugger in place with patient demonstrating appropriate use. Antiembolism stockings, SCDs present. - Gastrointestinal Gastrointestinal Comment(s): Abdomen soft, nontender, nondistended. Active bowel sounds present 4 quadrants. Tolerating diet. Positive flatus. - Genitourinary Genitourinary Comment(s): Patient unable to void last night, straight cathed for 725 mL residual - Integumentary Integumentary Comment(s): Skin is warm and dry with evidence of good perfusion. Anterior chest incision well approximated and covered with dry intact dressing. Right lower extremity EVH site well approximated without redness or drainage. Left radial artery harvest site well approximated without redness or drainage. Patient able to wiggle fingers and nut feeder appropriately, denies numbness or tingling, good cap refill. - Neurologic Neurologic: Present: CNII-XII intact - Musculoskeletal Musculoskeletal: Present: gait normal, strength equal bilaterally - Psychiatric Psychiatric: Present: A&O x's 3, appropriate affect, intact judgment & insight - Allied health notes Allied health notes reviewed: nursing - Labs CBC & Chem 7: 11/20/19 04:15 11/20/19 04:15 Labs: Abnormal Lab Results - Last 24 Hours (Table) 11/19/19 11/19/19 11/19/19 Range/Units 08:23 09:19 10:12 WBC (3.8-10.6) k/uL RBC (4.30-5.90) m/uL Hgb (13.0-17.5) gm/dL Hct (39.0-53.0) % Sodium (137-145) mmol/L Glucose (74-99) mg/dL POC Glucose (mg/dL) 254 H 252 H 203 H (75-99) mg/dL Calcium (8.4-10.2) mg/dL 11/19/19 11/19/19 11/19/19 Range/Units 11:09 12:09 17:15 WBC (3.8-10.6) k/uL RBC (4.30-5.90) m/uL Hgb (13.0-17.5) gm/dL Hct (39.0-53.0) % Sodium (137-145) mmol/L Glucose (74-99) mg/dL POC Glucose (mg/dL) 144 H 121 H 197 H (75-99) mg/dL Calcium (8.4-10.2) mg/dL 11/19/19 11/20/19 11/20/19 Range/Units 20:51 02:59 04:15 WBC 11.6 H (3.8-10.6) k/uL RBC 2.73 L (4.30-5.90) m/uL Hgb 8.3 L (13.0-17.5) gm/dL Hct 25.4 L (39.0-53.0) % Sodium (137-145) mmol/L Glucose (74-99) mg/dL POC Glucose (mg/dL) 153 H 174 H (75-99) mg/dL Calcium (8.4-10.2) mg/dL 11/20/19 11/20/19 Range/Units 04:15 07:10 WBC (3.8-10.6) k/uL RBC (4.30-5.90) m/uL Hgb (13.0-17.5) gm/dL Hct (39.0-53.0) % Sodium 131 L (137-145) mmol/L Glucose 150 H (74-99) mg/dL POC Glucose (mg/dL) 159 H (75-99) mg/dL Calcium 7.2 L (8.4-10.2) mg/dL - Imaging and Cardiology Chest x-ray: image reviewed Assessment and Plan Assessment: 1. Symptomatic multivessel coronary artery disease with unstable angina, status post four-vessel CABG 2. Preserved left ventricular systolic function with EF 60%, mild mitral regurgitation and mild tricuspid regurgitation 3. Hypertension 4. Hyperlipidemia, LDL 163, cholesterol 249, triglycerides 214 5. Type 2 diabetes mellitus with preoperative hemoglobin A1c 8% 6. Obesity 7. Osteoarthritis 8. Current tobacco dependence 9. Mild COPD with preoperative FEV1 75% of predicted 10. Postoperative acute blood loss anemia, thrombocytopenia, leukocytosis 11. Postoperative urinary retention Plan: 1. Continue aspirin, statin, Plavix, beta js therapy. Will increase beta js therapy as tolerated 2. [facility] changed to Cardize for radial artery spasm prophylaxis as well as assistance with heart rate control. Do not discontinue CCB without discussing with cardiac surgery 3. Continue Cozaar for afterload reduction 4. Wean O2 as tolerated. Encourage incentive spirometry use 10 times every hour while awake. Bronchodilators per pulmonology. 5. Increase activity, ambulate as tolerated. PT/OT/cardiac rehab consult 6. Will monitor daily labs and x-rays. Electrolyte replacement per protocol. No blood transfusion today. Will give IV lasix today 7. Pain control with current medication regimen. 8. Continue Flomax 9. May bladder scan and straight cath for greater than 300 mL residual. If continues to have residual may replace sandoval and will consult urology. 10. Daily weight with stand up scale 12. Insulin/diabetic management per primary care service 13. Transfer orders placed yesterday for 3S cardiac stepdown, may transfer when bed available 14. More recommendations to follow as patient progresses Time with Patient: Greater than 30
[2019-11-20 09:50] LABS: Appearance,Urine Clear (Clear); Bilirubin,Urine Negative (Negative); Blood,Urine Negative (Negative); Color,Urine Yellow; Glucose,Urine (UA) Trace (Negative); Ketones,Urine Negative (Negative); Leukocyte Esterase,Urine Negative (Negative); Nitrite,Urine Negative (Negative); PH, Urine 5.5 (5.0-8.0); Protein,Urine Negative (Negative); Specific Gravity,Urine 1.017 (1.001-1.035); Urobilinogen,Urine <2.0 mg/dL (<2.0)
[2019-11-20] MEDS: PANTOPRAZOLE 40 MG TABLET PO SCH (09:57)
--- NOTE | 2019-11-20 10:00 | P.PN ---
Subjective Progress Note Date: 11/20/19 Principal diagnosis: Multivessel coronary artery disease, status post four-vessel bypass grafting On 11/19/2019 patient seen in follow-up in intensive care unit, today is postoperative day 2 status post coronary artery bypass grafting with WALDEN to the LAD, left radial artery to the first obtuse marginal artery reverse SVG to the second up to his marginal, reverse SVG to the PDA, with endoscopic harvesting of the left radial artery and right greater saphenous vein, left atrial appendage ligation with AtriCure clip. Patient is doing very well, he is on 4 L of oxygen with a pulse ox of 93%, hemodynamically stable, is in the sinus mechanism, slightly tachycardic, rate of 90-100 BPM. He is on 0.9 normal seen at a rate of 20 ML per hour, he is on insulin 10.5 units per hour, his Halifax-Kwame catheter has been discontinued, hemodynamically patient has been stable, he still has the mediastinal chest tube with 365 ML of thin serosanguineous output last 24 hours, left pleural chest tube and mediastinal chest tube with 120 ML of serosanguineous output, no air leak, chest tubes remain to wall suction. Eugene catheter has been discontinued. Patient is achieving 1500 mL on his incentive spirometer, on sounds are positive for some mild bibasilar crackles, today's chest x-ray has been reviewed showing bilateral lower lobe infiltrates and small pleural effusions that are stable in appearance, small amount of subcutaneous emphysema overlying soft tissues of the left neck, no signs of pneumothorax. His labs have been noted, white blood cell count is 14.2, hemoglobin is 8.6, sodium is 132, the rest of electrolytes and renal profile are within normal limits. Patient did ambulate around the unit, tolerated activity well, his pain is reasonably controlled, denies any nausea or vomiting, he is tolerating oral diet On 11/20/2019 patient seen in follow-up in intensive care unit, today is postoperative day #3, status post coronary artery bypass grafting with WALDEN to t he LAD, left radial artery graft to the first OM, reverse SVG to the second OM and PDA with endoscopic harvesting and left atrial appendage exclusion. Patient is doing well, he is awake and alert, oriented 3, he sitting up in the recliner, with a pulse ox of 93%, breathing is nonlabored, comfortable, lung sounds are clear, no rhonchi or wheezing no crackles, IV fluids have been hep- locked, Eugene catheter was discontinued yesterday, and apparently patient's having some retention issues patient was started on Flomax, he required straight catheterization today. His sinus rhythm on the monitor. No acute events overnight, chest x-ray just shows atelectasis, patient will receive a dose of Lasix today. He is working on incentive spirometer, his been tolerating ambulation, his chest tubes came out yesterday, his epicardial wires have been grounded. Is receiving stool softeners. Surgical incisions are clean dry and intact. Objective - Vital Signs Vital signs: Vital Signs Temp 98.3 F 11/20/19 04:00 Pulse 99 11/20/19 08:15 Resp 19 11/20/19 04:00 BP 101/62 11/20/19 04:00 Pulse Ox 93 L 11/20/19 04:00 Intake & Output 11/19/19 11/20/19 11/20/19 18:59 06:59 18:59 Intake Total 879.222 200 0 Output Total 525 1450 0 Balance 354.222 -1250 0 Weight 108.1 kg Intake: IV 234 0 0 Lactated Ringers 1,000 ml 180 0 0 @ 20 mls/hr IV .Q24H MICHELLE Rx#:[id number] Pressure Bags 54 Intake, IV Titration 45.222 Amount Insulin Regular 100 unit 45.222 In Sodium Chloride 0.9% 100 ml @ Per Protocol IV .Q0M MICHELLE Rx#:[id number] Oral 600 200 Output: Chest Tube Drainage 120 Chest Tube Left Left 50 Pleural/Mediastinal Chest Tube Mediastinal 70 Urine 105 725 0 Post Void Residual 300 725 Other: Voiding Method Indwelling Catheter Urinal # Voids 1 ABP, PAP, CO, CI - Last Documented Arterial Blood Pressure 115/45 Pulmonary Artery Pressure 27/5 Cardiac Output 6.3 Cardiac Index 2.9 - Exam GENERAL EXAM: Alert, very pleasant, 64-year-old white male, on 3 L of oxygen a pulse ox of 93%, comfortable in no apparent distress. HEAD: Normocephalic/atraumatic. EYES: Normal reaction of pupils, equal size. Conjunctiva pink, sclera white. NOSE: Clear with pink turbinates. THROAT: No erythema or exudates. NECK: No masses, no JVD, no thyroid enlargement, no adenopathy. CHEST: No chest wall deformity. Symmetrical expansion. Midsternal incision clean dry and intact, interval removal of 3 chest tubes, chest tube sites are clean dry and intact, epicardial wires grounded LUNGS: Equal air entry with no crackles, wheeze, rhonchi or dullness. CVS: Regular rate and rhythm, normal S1 and S2, no gallops, no murmurs, no rubs ABDOMEN: Soft, nontender. No hepatosplenomegaly, normal bowel sounds, no guarding or rigidity. EXTREMITIES: No clubbing, no edema, no cyanosis, 2+ pulses and upper and lower extremities. MUSCULOSKELETAL: Muscle strength and tone normal. SPINE: No scoliosis or deformity SKIN: No rashes. Left radial graft harvest site is covered with a dressing, clean dry and intact, left leg incision covered with the Rui wrap clean dry and intact CENTRAL NERVOUS SYSTEM: Alert and oriented -3. No focal deficits, tone is normal in all 4 extremities. PSYCHIATRIC: Alert and oriented -3. Appropriate affect. Intact judgment and insight. - Labs CBC & Chem 7: 11/20/19 04:15 11/20/19 04:15 Labs: Abnormal Lab Results - Last 24 Hours (Table) 11/19/19 11/19/19 11/19/19 Range/Units 10:12 11:09 12:09 WBC (3.8-10.6) k/uL RBC (4.30-5.90) m/uL Hgb (13.0-17.5) gm/dL Hct (39.0-53.0) % Sodium (137-145) mmol/L Glucose (74-99) mg/dL POC Glucose (mg/dL) 203 H 144 H 121 H (75-99) mg/dL Calcium (8.4-10.2) mg/dL Urine Glucose (UA) (Negative) 11/19/19 11/19/19 11/20/19 Range/Units 17:15 20:51 02:59 WBC (3.8-10.6) k/uL RBC (4.30-5.90) m/uL Hgb (13.0-17.5) gm/dL Hct (39.0-53.0) % Sodium (137-145) mmol/L Glucose (74-99) mg/dL POC Glucose (mg/dL) 197 H 153 H 174 H (75-99) mg/dL Calcium (8.4-10.2) mg/dL Urine Glucose (UA) (Negative) 11/20/19 11/20/19 11/20/19 Range/Units 04:15 04:15 07:10 WBC 11.6 H (3.8-10.6) k/uL RBC 2.73 L (4.30-5.90) m/uL Hgb 8.3 L (13.0-17.5) gm/dL Hct 25.4 L (39.0-53.0) % Sodium 131 L (137-145) mmol/L Glucose 150 H (74-99) mg/dL POC Glucose (mg/dL) 159 H (75-99) mg/dL Calcium 7.2 L (8.4-10.2) mg/dL Urine Glucose (UA) (Negative) 11/20/19 Range/Units 09:10 WBC (3.8-10.6) k/uL RBC (4.30-5.90) m/uL Hgb (13.0-17.5) gm/dL Hct (39.0-53.0) % Sodium (137-145) mmol/L Glucose (74-99) mg/dL POC Glucose (mg/dL) (75-99) mg/dL Calcium (8.4-10.2) mg/dL Urine Glucose (UA) Trace H (Negative) Assessment and Plan Plan: Assessment: #1. Symptomatic multivessel coronary artery disease with unstable angina, status post four-vessel CABG, with WALDEN to the LAD, left radial artery to the first OM, reverse SVG to the second OM, reverse SVG to the PDA, endoscopic harvesting of the left radial artery, and right greater saphenous vein, left atrial appendage ligation with 35mm AtriClip and intraoperative transesophageal echocardiogram and a peak aortic scanning, postoperative day 3 #2. Postoperative acute blood loss anemia and thrombocytopenia likely related to hemodilution, and cardiopulmonary bypass pump #3. Hypertension #4. Hyperlipidemia #5. Type 2 diabetes mellitus #6. Obesity #7. Osteoarthritis #8. Current tobacco dependence #9. Mild COPD with preoperative FEV1 of 75% of predicted #10. Urinary retention, requiring straight catheterization, patient has been started on Flomax Plan: Patient is hemodynamically stable, no acute issues overnight other than urinary retention after removal of the Eugene catheter, has been started on Flomax, possible urology consultation is being considered by the CT surgery, his chest x-ray has been reviewed, showing bilateral atelectasis, continue encouraging deep breathing and coughing, has tubes have been removed, patient has been tolerating ambulation. Continue monitoring in ICU. GI and DVT prophylaxis per CT surgery. I performed a history & physical examination of the patient and discussed their management with my nurse practitioner, Marisela Salvador. I reviewed the nurse practitioner's note and agree with the documented findings and plan of care. Lung sounds are positive for a few bibasilar crackles. The findings and the impression was discussed with the patient. I attest to the documentation by the nurse practitioner. Time with Patient: Less than 30
[2019-11-20] MEDS: ASPIRIN 325 MG TAB PO SCH (10:06)
[2019-11-20] MEDS: ATORVASTATIN 40 MG TAB PO SCH (10:07)
[2019-11-20] MEDS: CLOPIDOGREL 75 MG TAB PO SCH (10:07)
[2019-11-20] MEDS: METOPROLOL TARTRATE 50 MG TAB PO SCH ×2 (10:07→21:02)
--- NOTE | 2019-11-20 10:34 | XR ---
EXAMINATION TYPE: XR chest 2V DATE OF EXAM: 11/20/2019 COMPARISON: Prior chest x-ray 11/19/2019 HISTORY: Status post cardiac surgery, post chest tube removal TECHNIQUE: Frontal and lateral views of the chest are obtained. FINDINGS: Patient is post median sternotomy and atrial appendage clipping placement. Heart size is s table. Chest tube has been removed. Mediastinal drains are no longer seen. There are overlying leads. Subcutaneous emphysema changes are present. No evident pneumothorax. Pleural parenchymal changes are similar to prior exam. Lung volumes are low. Patient is rotated. IMPRESSION: No evident complication status post chest tubes removal
--- NOTE | 2019-11-20 11:29 | PN ---
PROGRESS NOTE Mr. Bates is a 64-year-old male status post coronary artery bypass grafting. He is sitting up in the chair today, feeling well. He is in sinus mechanism. Hemodynamically, he is stable. He is feeling stronger. His breathing is stable. He has no significant chest wall tenderness. He denies any dizziness or palpitation. He continues to be on aspirin once a day, Lipitor 40 mg daily, Plavix 75 mg daily, diltiazem 30 mg q.8 hours, losartan 25 mg daily, metoprolol tartrate 50 mg twice a day, Flomax. PHYSICAL EXAMINATION: Blood pressure 101/60 with a heart rate in 90s. LUNGS: No wheezes. Mild decreased breath sounds at the bases. HEART: Regular rate and rhythm. S1, S2. No S3. No rub appreciated. ABDOMEN: Soft, nontender. EXTREMITIES: No significant edema. Chest x-ray revealed small effusion on the left side. LAB: BUN and creatinine 19 and 0.96. Hemoglobin is 8.3. IMPRESSION: 1. Status post coronary artery bypass grafting, stable. 2. History of hyperlipidemia. 3. Prior history of smoking. 4. Diabetes. 5. Hyperlipidemia, treated. RECOMMENDATION: We will continue to increase his activity. Continue incentive spirometry. I would expect he should be able to be discharged home in the next 48 hours. MMODL / IJN: [id number] /
[2019-11-20 12:01] LABS: Glucose,Whole Blood 229 mg/dL (75-99)
[2019-11-20] MEDS: LOSARTAN 25 MG TAB PO SCH (12:13)
[2019-11-20 16:50] LABS: Glucose,Whole Blood 221 mg/dL (75-99)
[2019-11-20] MEDS: TAMSULOSIN 0.4 MG CAP.ER.24H PO SCH (17:28)
[2019-11-20 21:00] LABS: Glucose,Whole Blood 194 mg/dL (75-99)
[2019-11-20] MEDS ORDERED: INSULIN DETEMIR (LEVEMIR) 100 UNIT/ML SYR SQ SCH (21:00)
[2019-11-20] MEDS: SENNOSIDES-DOCUSATE SODIUM 1 EACH TAB PO SCH (21:02)
[2019-11-20] MEDS: BENZOCAINE/MENTHOL LOZENG 1 EACH LOZENGE MUCOUS MEM PRN (23:19)
[2019-11-21 01:41] LABS: Glucose,Whole Blood 152 mg/dL (75-99)
[2019-11-21] MEDS: ACETAMINOPHEN TAB 500 MG TAB PO PRN ×4 (01:48→23:29)
[2019-11-21] MEDS: INSULIN ASPART (NovoLOG) 100 UNIT/ML VIAL SQ SCH ×5 (01:49→20:37)
[2019-11-21 03:53] LABS: HCT 24.3 % (39.0-53.0); MCH 31.1 pg (25.0-35.0); Mean Platelet Volume 8.5; Platelet Count 247 k/uL (150-450); RBC 2.58 m/uL (4.30-5.90); RDW 14.4 % (11.5-15.5)
[2019-11-21 04:15] LABS: African American GFR (CKD) >90 (>60 ml/min/1.73 sqM); Anion Gap 3 mmol/L; Blood Urea Nitrogen 18 mg/dL (9-20); Calcium 7.4 mg/dL (8.4-10.2); Carbon Dioxide 26 mmol/L (22-30); Chloride 102 mmol/L (98-107); Glucose 144 mg/dL (74-99); Non-African American GFR(CKD) >90 (>60 ml/min/1.73 sqM); Potassium 4.2 mmol/L (3.5-5.1); Sodium 131 mmol/L (137-145)
[2019-11-21] MEDS: DILTIAZEM ORAL 30 MG TAB PO SCH (05:16)
[2019-11-21 06:56] LABS: Glucose,Whole Blood 186 mg/dL (75-99)
[2019-11-21] MEDS: PANTOPRAZOLE 40 MG TABLET PO SCH (07:22)
[2019-11-21] MEDS ORDERED: METOCLOPRAMIDE 5 MG/ML 2 ML VIAL IVP STA (07:23)
[2019-11-21] MEDS: IPRATROPIUM-ALBUTEROL 3 ML NEB INHALATION SCH ×4 (07:29→20:46)
--- NOTE | 2019-11-21 07:52 | P.PN ---
Subjective Progress Note Date: 11/21/19 Principal diagnosis: Symptomatic multivessel coronary artery disease with unstable angina, preserved left ventricular systolic function with EF 60%, mild mitral regurgitation and m ild tricuspid regurgitation. Previous medical history of hypertension, hyperlipidemia, type 2 diabetes mellitus with preoperative hemoglobin A1c 8%, obesity, osteoarthritis, current tobacco dependence, and mild COPD with preoperative FEV1 75% of predicted POD #4 coronary artery bypass grafting 4 vessels with left internal mammary artery to the left anterior descending artery, radial artery to the first obtuse marginal artery, reverse saphenous vein graft to the second obtuse marginal artery, reverse saphenous vein graft to the posterior descending artery, endoscopic harvesting of the left radial artery, endoscopic harvesting of the right greater saphenous vein, left atrial appendage ligation with 35 mm AtriCure clip, intraoperative transesophageal echocardiogram and epi-aortic scanning Postoperative acute blood loss anemia and thrombocytopenia, expected given hemodilution and cardiopulmonary bypass pump Postoperative leukocytosis, expected, reactive Postoperative urinary retention, unexpected The patient is currently sitting up in a recliner in the intensive care unit in no acute distress. He states pain is well controlled on current medication regimen, although he has had a little bit more pain at the incision site likely from his heart hugger rubbing on the incision, denies shortness of breath. He remains in normal sinus rhythm and hemodynamically stable on no inotropes or pressors. Patient has been able to avoid sufficient amounts, however this morning he does have residual of 400 mL. Has received 2 doses of Flomax so far. Has not had a bowel movement yet. Ambulatory in the hallway yesterday. Objective - Vital Signs Vital signs: Vital Signs Temp 98.7 F 11/21/19 00:00 Pulse 96 11/21/19 07:30 Resp 21 11/21/19 04:00 BP 147/71 11/21/19 04:00 Pulse Ox 96 11/21/19 04:00 Intake & Output 11/20/19 11/21/19 11/21/19 18:59 06:59 18:59 Intake Total 1000 440 250 Output Total 450 780 0 Balance 550 -340 250 Weight 107.3 kg Intake: IV 0 Lactated Ringers 1,000 ml 0 @ 20 mls/hr IV .Q24H MICHELLE Rx#:[id number] Oral 1000 440 250 Output: Urine 450 780 0 Other: # Voids 1 0 ABP, PAP, CO, CI - Last Documented Arterial Blood Pressure 115/45 Pulmonary Artery Pressure 27/5 Cardiac Output 6.3 Cardiac Index 2.9 - Constitutional General appearance: Present: cooperative, no acute distress - Respiratory Details: Lungs sounds diminished bilaterally. Respirations even, nonlabored. Currently on L high flow nasal cannula with oxygen saturation 96%. Able to achieve 1750 mL on his incentive spirometry. Strong cough with yellow sputum. - Cardiovascular Details: S1, S2 present. Regular rate and rhythm, sinus rhythm on telemetry. Sternum stable. A/V epicardial pacemaker wires present, grounded. Palpable peripheral pulses bilaterally. No edema present. No calf pain or tenderness noted. Heart hugger in place with patient demonstrating appropriate use. Antiembolism stockings, SCDs present. - Gastrointestinal Gastrointestinal Comment(s): Abdomen soft, nontender, nondistended. Active bowel sounds present 4 quadrants. Tolerating diet. Positive flatus. - Genitourinary Genitourinary Comment(s): Patient has been able to void, did have 400 mL residual this morning - Integumentary Integumentary Comment(s): Skin is warm and dry with evidence of good perfusion. Anterior chest incision well approximated and covered with dry intact dressing. Right lower extremity EVH site well approximated without redness or drainage. Left radial artery harvest site well approximated without redness or drainage. 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 - Neurologic Neurologic: Present: CNII-XII intact - Musculoskeletal Musculoskeletal: Present: gait normal, strength equal bilaterally - Psychiatric Psychiatric: Present: A&O x's 3, appropriate affect, intact judgment & insight - Allied health notes Allied health notes reviewed: nursing - Labs CBC & Chem 7: 11/21/19 03:40 11/21/19 03:40 Labs: Abnormal Lab Results - Last 24 Hours (Table) 11/20/19 11/20/19 11/20/19 Range/Units 09:10 11:59 16:49 WBC (3.8-10.6) k/uL RBC (4.30-5.90) m/uL Hgb (13.0-17.5) gm/dL Hct (39.0-53.0) % Sodium (137-145) mmol/L Glucose (74-99) mg/dL POC Glucose (mg/dL) 229 H 221 H (75-99) mg/dL Calcium (8.4-10.2) mg/dL Urine Glucose (UA) Trace H (Negative) 11/20/19 11/21/19 11/21/19 Range/Units 20:58 01:40 03:40 WBC 13.0 H (3.8-10.6) k/uL RBC 2.58 L (4.30-5.90) m/uL Hgb 8.0 L (13.0-17.5) gm/dL Hct 24.3 L (39.0-53.0) % Sodium (137-145) mmol/L Glucose (74-99) mg/dL POC Glucose (mg/dL) 194 H 152 H (75-99) mg/dL Calcium (8.4-10.2) mg/dL Urine Glucose (UA) (Negative) 11/21/19 11/21/19 Range/Units 03:40 06:55 WBC (3.8-10.6) k/uL RBC (4.30-5.90) m/uL Hgb (13.0-17.5) gm/dL Hct (39.0-53.0) % Sodium 131 L (137-145) mmol/L Glucose 144 H (74-99) mg/dL POC Glucose (mg/dL) 186 H (75-99) mg/dL Calcium 7.4 L (8.4-10.2) mg/dL Urine Glucose (UA) (Negative) - Imaging and Cardiology Chest x-ray: report reviewed, image reviewed Assessment and Plan Assessment: 1. Symptomatic multivessel coronary artery disease with unstable angina, status post four-vessel CABG 2. Preserved left ventricular systolic function with EF 60%, mild mitral regurgitation and mild tricuspid regurgitation 3. Hypertension 4. Hyperlipidemia, LDL 163, cholesterol 249, triglycerides 214 5. Type 2 diabetes mellitus with preoperative hemoglobin A1c 8% 6. Obesity 7. Osteoarthritis 8. Current tobacco dependence 9. Mild COPD with preoperative FEV1 75% of predicted 10. Postoperative acute blood loss anemia, thrombocytopenia, leukocytosis 11. Postoperative urinary retention Plan: 1. Continue aspirin, statin, Plavix, beta js therapy. Will increase beta js therapy as tolerated 2. Continue Cardizem for radial artery spasm prophylaxis as well as assistance with heart rate control. Do not discontinue CCB without discussing with cardiac surgery 3. Continue Cozaar for afterload reduction 4. Wean O2 as tolerated. Encourage incentive spirometry use 10 times every hour while awake. Bronchodilators per pulmonology. 5. Increase activity, ambulate as tolerated. PT/OT/cardiac rehab consult 6. Will monitor daily labs and x-rays. Electrolyte replacement per protocol. No blood transfusion today. 7. Will discontinue epicardial pacemaker wires today. Patient to remain on bedrest 1 hour post-removal 8. Pain control with current medication regimen. 9. Continue Flomax 10. May bladder scan and straight cath for greater than 300 mL residual. If continues to have residual may replace sandoval and will consult urology. 11. Daily weight with stand up scale 12. Insulin/diabetic management per primary care service 13. Will give 1 dose IV Reglan and milk of magnesia today. If no bowel movement by noon will give suppository. 14. Transfer orders placed yesterday for 3S cardiac stepdown, may transfer when bed available 15. Discharge planning in progress. Anticipate discharge to home with home health care in the next 24-48 hours 16. More recommendations to follow as patient progresses Time with Patient: Greater than 30
[2019-11-21] MEDS: HEPARIN SODIUM,PORCINE 5,000 UNIT/ML 1 ML VIAL SQ SCH ×3 (08:35→23:29)
[2019-11-21] MEDS: ATORVASTATIN 40 MG TAB PO SCH (08:35)
[2019-11-21] MEDS: CLOPIDOGREL 75 MG TAB PO SCH (08:35)
[2019-11-21] MEDS: METOPROLOL TARTRATE 50 MG TAB PO SCH ×2 (08:35→20:37)
[2019-11-21] MEDS: ASPIRIN 325 MG TAB PO SCH (08:35)
[2019-11-21] MEDS: FUROSEMIDE 10 MG/ML 4 ML VIAL IV STA ×2 (08:59→10:09)
[2019-11-21] MEDS: DILTIAZEM ORAL 60 MG TAB PO SCH ×3 (08:59→23:29)
--- NOTE | 2019-11-21 09:53 | P.PN ---
Subjective Progress Note Date: 11/20/19 Principal diagnosis: Multivessel coronary artery disease, status post four-vessel bypass grafting 11/20/2019 patient seen and evaluated in ICU; sitting up in bedside chair; POD #3, status post coronary artery bypass grafting Patient is doing well, he is awake and alert, oriented 3, he sitting up in the recliner, with a pulse ox of 93%, breathing is nonlabored, comfortable, lung sounds are clear, no rhonchi or wheezing no crackles, IV fluids have been hep- locked, Eugene catheter was discontinued yesterday, and apparently patient's having some retention issues patient was started on Flomax, he required straight catheterization today. His sinus rhythm on the monitor. No acute events overnight, chest x-ray just shows atelectasis, patient will receive a dose of Lasix today. He is working on incentive spirometer, his been tolerating ambulation, his chest tubes came out yesterday, his epicardial wires have been grounded. Is receiving stool softeners. Surgical incisions are clean dry and intact. Objective - Vital Signs Vital signs: Vital Signs Temp 98.3 F 11/20/19 04:00 Pulse 99 11/20/19 11:27 Resp 19 11/20/19 04:00 BP 101/62 11/20/19 04:00 Pulse Ox 93 L 11/20/19 04:00 Intake & Output 11/19/19 11/20/19 11/20/19 18:59 06:59 18:59 Intake Total 879.222 200 0 Output Total 525 1450 0 Balance 354.222 -1250 0 Weight 108.1 kg Intake: IV 234 0 0 Lactated Ringers 1,000 ml 180 0 0 @ 20 mls/hr IV .Q24H MICHELLE Rx#:[id number] Pressure Bags 54 Intake, IV Titration 45.222 Amount Insulin Regular 100 unit 45.222 In Sodium Chloride 0.9% 100 ml @ Per Protocol IV .Q0M MICHELLE Rx#:[id number] Oral 600 200 Output: Chest Tube Drainage 120 Chest Tube Left Left 50 Pleural/Mediastinal Chest Tube Mediastinal 70 Urine 105 725 0 Post Void Residual 300 725 Other: Voiding Method Indwelling Catheter Urinal # Voids 1 ABP, PAP, CO, CI - Last Documented Arterial Blood Pressure 115/45 Pulmonary Artery Pressure 27/5 Cardiac Output 6.3 Cardiac Index 2.9 - Exam GENERAL EXAM: Alert, very pleasant, 64-year-old white male, on 3 L of oxygen a pulse ox of 93%, comfortable in no apparent distress. HEAD: Normocephalic/atraumatic. EYES: Normal reaction of pupils, equal size. Conjunctiva pink, sclera white. NOSE: Clear with pink turbinates. THROAT: No erythema or exudates. NECK: No masses, no JVD, no thyroid enlargement, no adenopathy. CHEST: No chest wall deformity. Symmetrical expansion. Midsternal incision clean dry and intact, interval removal of 3 chest tubes, chest tube sites are clean dry and intact, epicardial wires grounded LUNGS: Equal air entry with no crackles, wheeze, rhonchi or dullness. CVS: Regular rate and rhythm, normal S1 and S2, no gallops, no murmurs, no rubs ABDOMEN: Soft, nontender. No hepatosplenomegaly, normal bowel sounds, no guarding or rigidity. EXTREMITIES: No clubbing, no edema, no cyanosis, 2+ pulses and upper and lower extremities. - Labs CBC & Chem 7: 11/21/19 03:40 11/21/19 03:40 Labs: Abnormal Lab Results - Last 24 Hours (Table) 11/19/19 11/19/19 11/20/19 Range/Units 17:15 20:51 02:59 WBC (3.8-10.6) k/uL RBC (4.30-5.90) m/uL Hgb (13.0-17.5) gm/dL Hct (39.0-53.0) % Sodium (137-145) mmol/L Glucose (74-99) mg/dL POC Glucose (mg/dL) 197 H 153 H 174 H (75-99) mg/dL Calcium (8.4-10.2) mg/dL Urine Glucose (UA) (Negative) 11/20/19 11/20/19 11/20/19 Range/Units 04:15 04:15 07:10 WBC 11.6 H (3.8-10.6) k/uL RBC 2.73 L (4.30-5.90) m/uL Hgb 8.3 L (13.0-17.5) gm/dL Hct 25.4 L (39.0-53.0) % Sodium 131 L (137-145) mmol/L Glucose 150 H (74-99) mg/dL POC Glucose (mg/dL) 159 H (75-99) mg/dL Calcium 7.2 L (8.4-10.2) mg/dL Urine Glucose (UA) (Negative) 11/20/19 11/20/19 Range/Units 09:10 11:59 WBC (3.8-10.6) k/uL RBC (4.30-5.90) m/uL Hgb (13.0-17.5) gm/dL Hct (39.0-53.0) % Sodium (137-145) mmol/L Glucose (74-99) mg/dL POC Glucose (mg/dL) 229 H (75-99) mg/dL Calcium (8.4-10.2) mg/dL Urine Glucose (UA) Trace H (Negative) Assessment and Plan Assessment: Multiple vessel coronary artery disease status post CABG Diabetes mellitus Hypertension Hyperlipidemia Primary osteoarthritis History of panic attack Plan: 64 years old male who presents with CABG. Patient emerged closely in the ICU. Continue with aspirin and Plavix. Continue with insulin. Patient is monitored closely by several consultants including cardiology and pulmonary besides the cardio thoracic surgery primary team. Labs and medication were reviewed.. Continue same treatment. Continue with symptomatic treatment. Resume home medication. Monitor lytes and vitals. DVT and GI prophylaxis. Further recommendations of the clinical course of the patient DVT prophylaxis: Subcutaneous heparin GI Prophylaxis: Ppi
--- NOTE | 2019-11-21 09:56 | P.PN ---
Subjective Progress Note Date: 11/21/19 Principal diagnosis: Multivessel coronary artery disease, status post four-vessel bypass grafting The patient is seen today 11/21/2019 in follow-up in the intensive care unit. This is postoperative day #4. Status post coronary artery bypass grafting with a WALDEN to LAD, left radial artery graft to the first OM, reverse saphenous vein graft to the second OM and PDA. He is currently sitting up in a chair at the bedside. Awake and alert in no acute distress. He did have some issues with pain throughout the evening but is better controlled today. He is maintaining good O2 saturations in the 90s on room air. No IV fluids. He's been up ambulating with assistance. He continues working well with the incentive spirometer. White count 13.0. Hemoglobin 8.0. Sodium 131. Potassium 4.2. Creatinine 0.89. Remains on DuoNeb inhalations. Objective - Vital Signs Vital signs: Vital Signs Temp 97.9 F 11/21/19 08:00 Pulse 101 H 11/21/19 08:00 Resp 12 11/21/19 08:00 BP 126/65 11/21/19 08:00 Pulse Ox 93 L 11/21/19 08:00 Intake & Output 11/20/19 11/21/19 11/21/19 18:59 06:59 18:59 Intake Total 1000 440 250 Output Total 450 780 100 Balance 550 -340 150 Weight 107.3 kg Intake: IV 0 Lactated Ringers 1,000 ml 0 @ 20 mls/hr IV .Q24H MICHELLE Rx#:[id number] Oral 1000 440 250 Output: Urine 450 780 100 Other: # Voids 1 0 ABP, PAP, CO, CI - Last Documented Arterial Blood Pressure 115/45 Pulmonary Artery Pressure 27/5 Cardiac Output 6.3 Cardiac Index 2.9 - Exam GENERAL EXAM: Alert, very pleasant, 64-year-old the outpatient, on room air, comfortable in no apparent distress. HEAD: Normocephalic/atraumatic. EYES: Normal reaction of pupils, equal size. Conjunctiva pink, sclera white. NOSE: Clear with pink turbinates. THROAT: No erythema or exudates. NECK: No masses, no JVD, no thyroid enlargement, no adenopathy. CHEST: No chest wall deformity. Symmetrical expansion. Midsternal incision clean dry and intact, interval removal of 3 chest tubes, chest tube sites are clean dry and intact, epicardial wires removed LUNGS: Equal air entry with no crackles, wheeze, rhonchi or dullness. CVS: Regular rate and rhythm, normal S1 and S2, no gallops, no murmurs, no rubs ABDOMEN: Soft, nontender. No hepatosplenomegaly, normal bowel sounds, no guarding or rigidity. EXTREMITIES: No clubbing, no edema, no cyanosis, 2+ pulses and upper and lower extremities. MUSCULOSKELETAL: Muscle strength and tone normal. SPINE: No scoliosis or deformity SKIN: No rashes. Left radial graft harvest site is covered with a dressing, clean dry and intact, left leg incision covered with the Rui wrap clean dry and intact CENTRAL NERVOUS SYSTEM: No focal deficits, tone is normal in all 4 extremities. PSYCHIATRIC: Alert and oriented -3. Appropriate affect. Intact judgment and insight. - Labs CBC & Chem 7: 11/21/19 03:40 11/21/19 03:40 Labs: Abnormal Lab Results - Last 24 Hours (Table) 11/20/19 11/20/19 11/20/19 Range/Units 09:10 11:59 16:49 WBC (3.8-10.6) k/uL RBC (4.30-5.90) m/uL Hgb (13.0-17.5) gm/dL Hct (39.0-53.0) % Sodium (137-145) mmol/L Glucose (74-99) mg/dL POC Glucose (mg/dL) 229 H 221 H (75-99) mg/dL Calcium (8.4-10.2) mg/dL Urine Glucose (UA) Trace H (Negative) 11/20/19 11/21/19 11/21/19 Range/Units 20:58 01:40 03:40 WBC 13.0 H (3.8-10.6) k/uL RBC 2.58 L (4.30-5.90) m/uL Hgb 8.0 L (13.0-17.5) gm/dL Hct 24.3 L (39.0-53.0) % Sodium (137-145) mmol/L Glucose (74-99) mg/dL POC Glucose (mg/dL) 194 H 152 H (75-99) mg/dL Calcium (8.4-10.2) mg/dL Urine Glucose (UA) (Negative) 11/21/19 11/21/19 Range/Units 03:40 06:55 WBC (3.8-10.6) k/uL RBC (4.30-5.90) m/uL Hgb (13.0-17.5) gm/dL Hct (39.0-53.0) % Sodium 131 L (137-145) mmol/L Glucose 144 H (74-99) mg/dL POC Glucose (mg/dL) 186 H (75-99) mg/dL Calcium 7.4 L (8.4-10.2) mg/dL Urine Glucose (UA) (Negative) Assessment and Plan Assessment: 1 Symptomatic multivessel coronary artery disease with unstable angina, status post four-vessel CABG, with WALDEN to the LAD, left radial artery to the first OM, reverse SVG to the second OM, reverse SVG to the PDA, endoscopic harvesting of the left radial artery, and right greater saphenous vein, left atrial appendage ligation with 35mm AtriClip and intraoperative transesophageal echocardiogram and a peak aortic scanning, postoperative day 4 2 Postoperative acute blood loss anemia and thrombocytopenia likely related to hemodilution, and cardiopulmonary bypass pump 3 Hypertension 4 Hyperlipidemia 5 Type 2 diabetes mellitus 6 Obesity 7 Osteoarthritis 8 Current tobacco dependence 9 Mild COPD with preoperative FEV1 of 75% of predicted 10 Urinary retention, requiring straight catheterization, patient has been st arted on Flomax Plan: The patient was seen and evaluated by Dr. Caro Currently stable from the pulmonary and critical care standpoint Continue bronchodilators Continue utilizing his incentive spirometer Increase his activity as tolerated Awaiting transfer to the selective care unit We'll continue to follow I, the cosigning physician, performed a history & physical examination of the patient. Lungs sounds are clear. Maintaining good O2 saturations in the 90s on room air. I discussed the assessment and plan of care with my nurse practitioner, Jeannie Farfan. I attest to the above note as dictated by her.
--- NOTE | 2019-11-21 11:31 | XR ---
EXAMINATION TYPE: XR chest 2V DATE OF EXAM: 11/21/2019 COMPARISON: Prior chest x-ray 11/20/2019 HISTORY: Status post cardiac surgery TECHNIQUE: Frontal and lateral views of the chest are obtained. FINDINGS: Patient is post median sternotomy and atrial appendage clipping placement. Subcutaneous emp hysema change is still present. Patchy basilar density persists. Lung volumes are improved. No evide nt pneumothorax. There is blunting the posterior costophrenic angles. Increased AP diameter chest and flattening the hemidiaphragms consistent with underlying COPD. IMPRESSION: Basilar effusions, basilar atelectasis.
--- NOTE | 2019-11-21 11:43 | PN ---
PROGRESS NOTE Mr. Bates is a 64-year-old male who has underwent coronary bypass grafting. He is feeling better today, feeling stronger, sitting up in the chair, denying any chest pain. Denies any dizziness or palpitation. He remains in sinus mechanism. Hemodynamically he is stable. His pacer wires were removed today. He continues to be on aspirin once a day, Lipitor 40 mg daily, Plavix 75 mg daily, diltiazem 60 mg q.8 hours, losartan 25 mg daily, metoprolol tartrate 50 mg twice a day. PHYSICAL EXAMINATION: Blood pressure 125/60 with a heart rate in 90s. LUNGS: Mild decrease in breath sounds at the bases. No wheezes. HEART: Regular rate and rhythm. S1, S2. No S3 or rub noted. ABDOMEN: Soft, nontender. EXTREMITIES: Trace edema. LAB DATA: BUN and creatinine of 18 and 0.89, hemoglobin of 8.0. IMPRESSION: 1. Status post coronary artery bypass grafting, stable. 2. Hypertension. 3. Hyperlipidemia. 4. Prior history of smoking. 5. Diabetes mellitus. RECOMMENDATION: Patient will continue present therapy. Continue incentive spirometry. I am hopeful he will be transferred to telemetry floor. Increase his level of activity and hopefully discharge home in the next 48 hours. MMODL / IJN: [id number] /
[2019-11-21 11:55] LABS: Glucose,Whole Blood 285 mg/dL (75-99)
[2019-11-21] MEDS: LOSARTAN 25 MG TAB PO SCH (12:44)
[2019-11-21 17:07] LABS: Glucose,Whole Blood 176 mg/dL (75-99)
[2019-11-21] MEDS: TAMSULOSIN 0.4 MG CAP.ER.24H PO SCH (17:29)
--- NOTE | 2019-11-21 18:10 | P.PN ---
Subjective Progress Note Date: 11/21/19 Principal diagnosis: Multivessel coronary artery disease, status post four-vessel bypass grafting 11/20/2019 patient seen and evaluated in ICU; sitting up in bedside chair; POD #3, status post coronary artery bypass grafting Patient is doing well, he is awake and alert, oriented 3, he sitting up in the recliner, with a pulse ox of 93%, breathing is nonlabored, comfortable, lung sounds are clear, no rhonchi or wheezing no crackles, IV fluids have been hep- locked, Eugene catheter was discontinued yesterday, and apparently patient's having some retention issues patient was started on Flomax, he required straight catheterization today. His sinus rhythm on the monitor. No acute events overnight, chest x-ray just shows atelectasis, patient will receive a dose of Lasix today. He is working on incentive spirometer, his been tolerating ambulation, his chest tubes came out yesterday, his epicardial wires have been grounded. Is receiving stool softeners. Surgical incisions are clean dry and intact. 11/21/2019 Patient is seen in follow-up in the intensive care unit. This is postoperative day #4. Status post coronary artery bypass grafting with a WALDEN to LAD, left radial artery graft to the first OM, reverse saphenous vein graft to the second OM and PDA. He is currently sitting up in a chair at the bedside. Awake and alert in no acute distress. He did have some issues with pain throughout the evening but is better controlled today. He is maintaining good O2 saturations in the 90s on room air. No IV fluids. He's been up ambulating with assistance. He continues working well with the incentive spirometer. White count 13.0. Hemoglobin 8.0. Sodium 131. Potassium 4.2. Creatinine 0.89. Remains on DuoNeb inhalations. Objective - Vital Signs Vital signs: Vital Signs Temp 97.9 F 11/21/19 08:00 Pulse 96 11/21/19 16:04 Resp 12 11/21/19 08:00 BP 126/65 11/21/19 08:00 Pulse Ox 93 L 11/21/19 08:00 Intake & Output 11/20/19 11/21/19 11/21/19 18:59 06:59 18:59 Intake Total 1000 440 750 Output Total 450 780 600 Balance 550 -340 150 Weight 107.3 kg Intake: IV 0 Lactated Ringers 1,000 ml 0 @ 20 mls/hr IV .Q24H MICHELLE Rx#:[id number] Oral 1000 440 750 Output: Urine 450 780 600 Other: # Voids 1 0 ABP, PAP, CO, CI - Last Documented Arterial Blood Pressure 115/45 Pulmonary Artery Pressure 27/5 Cardiac Output 6.3 Cardiac Index 2.9 - Exam GENERAL EXAM: Alert, very pleasant, 64-year-old white male, on 3 L of oxygen a pulse ox of 93%, comfortable in no apparent distress. HEAD: Normocephalic/atraumatic. EYES: Normal reaction of pupils, equal size. Conjunctiva pink, sclera white. NOSE: Clear with pink turbinates. THROAT: No erythema or exudates. NECK: No masses, no JVD, no thyroid enlargement, no adenopathy. CHEST: No chest wall deformity. Symmetrical expansion. Midsternal incision clean dry and intact, interval removal of 3 chest tubes, chest tube sites are clean dry and intact, epicardial wires grounded LUNGS: Equal air entry with no crackles, wheeze, rhonchi or dullness. CVS: Regular rate and rhythm, normal S1 and S2, no gallops, no murmurs, no rubs ABDOMEN: Soft, nontender. No hepatosplenomegaly, normal bowel sounds, no guarding or rigidity. EXTREMITIES: No clubbing, no edema, no cyanosis, 2+ pulses and upper and lower extremities. - Labs CBC & Chem 7: 11/21/19 03:40 11/21/19 03:40 Labs: Abnormal Lab Results - Last 24 Hours (Table) 11/20/19 11/21/19 11/21/19 Range/Units 20:58 01:40 03:40 WBC 13.0 H (3.8-10.6) k/uL RBC 2.58 L (4.30-5.90) m/uL Hgb 8.0 L (13.0-17.5) gm/dL Hct 24.3 L (39.0-53.0) % Sodium (137-145) mmol/L Glucose (74-99) mg/dL POC Glucose (mg/dL) 194 H 152 H (75-99) mg/dL Calcium (8.4-10.2) mg/dL 11/21/19 11/21/19 11/21/19 Range/Units 03:40 06:55 11:54 WBC (3.8-10.6) k/uL RBC (4.30-5.90) m/uL Hgb (13.0-17.5) gm/dL Hct (39.0-53.0) % Sodium 131 L (137-145) mmol/L Glucose 144 H (74-99) mg/dL POC Glucose (mg/dL) 186 H 285 H (75-99) mg/dL Calcium 7.4 L (8.4-10.2) mg/dL 11/21/19 Range/Units 17:06 WBC (3.8-10.6) k/uL RBC (4.30-5.90) m/uL Hgb (13.0-17.5) gm/dL Hct (39.0-53.0) % Sodium (137-145) mmol/L Glucose (74-99) mg/dL POC Glucose (mg/dL) 176 H (75-99) mg/dL Calcium (8.4-10.2) mg/dL Assessment and Plan Assessment: Multiple vessel coronary artery disease status post CABG Diabetes mellitus Hypertension Hyperlipidemia Primary osteoarthritis History of panic attack Plan: 64 years old male who presents with CABG. Patient emerged closely in the ICU. Continue with aspirin and Plavix. Continue with insulin. Patient is monitored closely by several consultants including cardiology and pulmonary besides the cardio thoracic surgery primary team. Labs and medication were reviewed.. Continue same treatment. Continue with symptomatic treatment. Resume home medication. Monitor lytes and vitals. DVT and GI prophylaxis. Further recommendations of the clinical course of the patient DVT prophylaxis: Subcutaneous heparin GI Prophylaxis: Ppi
[2019-11-21 19:59] LABS: Glucose,Whole Blood 194 mg/dL (75-99)
[2019-11-21] MEDS: INSULIN DETEMIR (LEVEMIR) 100 UNIT/ML SYR SQ SCH (20:36)
[2019-11-21] MEDS: BENZOCAINE/MENTHOL LOZENG 1 EACH LOZENGE MUCOUS MEM PRN (20:36)
[2019-11-21] MEDS: SENNOSIDES-DOCUSATE SODIUM 1 EACH TAB PO SCH (20:37)
[2019-11-22 01:41] LABS: Glucose,Whole Blood 206 mg/dL (75-99)
[2019-11-22] MEDS: INSULIN ASPART (NovoLOG) 100 UNIT/ML VIAL SQ SCH ×5 (02:29→20:49)
[2019-11-22 04:40] LABS: HCT 26.6 % (39.0-53.0); HGB 8.5 gm/dL (13.0-17.5); MCH 29.7 pg (25.0-35.0); MCHC 31.8 g/dL (31.0-37.0); MCV 93.4 fL (80.0-100.0); Mean Platelet Volume 8.4; Platelet Count 322 k/uL (150-450); RBC 2.85 m/uL (4.30-5.90); WBC 11.4 k/uL (3.8-10.6)
[2019-11-22 05:10] LABS: African American GFR (CKD) >90 (>60 ml/min/1.73 sqM); Anion Gap 5 mmol/L; Blood Urea Nitrogen 15 mg/dL (9-20); Calcium 7.8 mg/dL (8.4-10.2); Carbon Dioxide 28 mmol/L (22-30); Chloride 102 mmol/L (98-107); Glucose 114 mg/dL (74-99); Magnesium 2.2 mg/dL (1.6-2.3); Non-African American GFR(CKD) 83 (>60 ml/min/1.73 sqM); Potassium 4.3 mmol/L (3.5-5.1); Sodium 135 mmol/L (137-145)
[2019-11-22 06:35] LABS: Glucose,Whole Blood 111 mg/dL (75-99)
[2019-11-22] MEDS: PANTOPRAZOLE 40 MG TABLET PO SCH (06:57)
[2019-11-22] MEDS: DILTIAZEM ORAL 60 MG TAB PO SCH ×4 (06:57→23:11)
--- NOTE | 2019-11-22 07:52 | P.PN ---
Subjective Progress Note Date: 11/22/19 Principal diagnosis: Symptomatic multivessel coronary artery disease with unstable angina, preserved left ventricular systolic function with EF 60%, mild mitral regurgitation and m ild tricuspid regurgitation. Previous medical history of hypertension, hyperlipidemia, type 2 diabetes mellitus with preoperative hemoglobin A1c 8%, obesity, osteoarthritis, current tobacco dependence, and mild COPD with preoperative FEV1 75% of predicted POD #5 coronary artery bypass grafting 4 vessels with left internal mammary artery to the left anterior descending artery, radial artery to the first obtuse marginal artery, reverse saphenous vein graft to the second obtuse marginal artery, reverse saphenous vein graft to the posterior descending artery, endoscopic harvesting of the left radial artery, endoscopic harvesting of the right greater saphenous vein, left atrial appendage ligation with 35 mm AtriCure clip, intraoperative transesophageal echocardiogram and epi-aortic scanning Postoperative acute blood loss anemia and thrombocytopenia, expected given hemodilution and cardiopulmonary bypass pump Postoperative leukocytosis, expected, reactive Postoperative urinary retention, unexpected The patient is currently sitting up in a recliner in the intensive care unit in no acute distress eating breakfast. He states pain is well controlled on current medication regimen, denies shortness of breath. He remains in normal sinus rhythm. Patient has been able to void sufficient amounts, however PVR revealed 800 mL and sandoval is being replaced. Ambulatory in the hallway yest erd without difficulty. Objective - Vital Signs Vital signs: Vital Signs Temp 98.4 F 11/22/19 04:00 Pulse 100 11/22/19 04:00 Resp 20 11/22/19 04:00 BP 135/63 11/22/19 04:00 Pulse Ox 95 11/22/19 04:00 Intake & Output 11/21/19 11/22/19 11/22/19 18:59 06:59 18:59 Intake Total 1750 240 Output Total 600 800 Balance 1150 -560 Weight 107.3 kg Intake: Oral 1750 240 Output: Urine 600 800 Other: # Voids 1 0 # Bowel Movements 1 ABP, PAP, CO, CI - Last Documented Arterial Blood Pressure 115/45 Pulmonary Artery Pressure 27/5 Cardiac Output 6.3 Cardiac Index 2.9 - Constitutional General appearance: Present: cooperative, no acute distress - Respiratory Details: Lungs sounds diminished bilaterally with faint expiratory wheezes present. Respirations even, nonlabored. Currently on room air with oxygen saturation 95%. Able to achieve 2000 mL on his incentive spirometry. Strong cough with yellow sputum. - Cardiovascular Details: S1, S2 present. Regular rate and rhythm, sinus rhythm on telemetry. Sternum stable. Palpable peripheral pulses bilaterally. No edema present. No calf pain or tenderness noted. Heart hugger in place with patient demonstrating appropriate use. Antiembolism stockings, SCDs present. - Gastrointestinal Gastrointestinal Comment(s): Abdomen soft, nontender, nondistended. Active bowel sounds present 4 quadrants. Tolerating diet. Positive bowel movement. - Genitourinary Genitourinary Comment(s): Continues to void clear, yellow urine - Integumentary Integumentary Comment(s): Skin is warm and dry with evidence of good perfusion. Anterior chest incision well approximated and covered with dry intact dressing. Right lower extremity E VH site well approximated without redness or drainage. Left radial artery harvest site well approximated without redness or drainage. Patient able to wiggle fingers and outsole scheduler appropriately, denies numbness or tingling, good cap refill. - Neurologic Neurologic: Present: CNII-XII intact - Musculoskeletal Musculoskeletal: Present: gait normal, strength equal bilaterally - Psychiatric Psychiatric: Present: A&O x's 3, appropriate affect, intact judgment & insight - Allied health notes Allied health notes reviewed: nursing - Labs CBC & Chem 7: 11/22/19 03:34 11/22/19 03:34 Labs: Abnormal Lab Results - Last 24 Hours (Table) 11/21/19 11/21/19 11/21/19 Range/Units 11:54 17:06 19:57 WBC (3.8-10.6) k/uL RBC (4.30-5.90) m/uL Hgb (13.0-17.5) gm/dL Hct (39.0-53.0) % Sodium (137-145) mmol/L Glucose (74-99) mg/dL POC Glucose (mg/dL) 285 H 176 H 194 H (75-99) mg/dL Calcium (8.4-10.2) mg/dL 11/22/19 11/22/19 11/22/19 Range/Units 01:39 03:34 03:34 WBC 11.4 H (3.8-10.6) k/uL RBC 2.85 L (4.30-5.90) m/uL Hgb 8.5 L (13.0-17.5) gm/dL Hct 26.6 L (39.0-53.0) % Sodium 135 L (137-145) mmol/L Glucose 114 H (74-99) mg/dL POC Glucose (mg/dL) 206 H (75-99) mg/dL Calcium 7.8 L (8.4-10.2) mg/dL 11/22/19 Range/Units 06:33 WBC (3.8-10.6) k/uL RBC (4.30-5.90) m/uL Hgb (13.0-17.5) gm/dL Hct (39.0-53.0) % Sodium (137-145) mmol/L Glucose (74-99) mg/dL POC Glucose (mg/dL) 111 H (75-99) mg/dL Calcium (8.4-10.2) mg/dL - Imaging and Cardiology Chest x-ray: image reviewed Assessment and Plan Assessment: 1. Symptomatic multivessel coronary artery disease with unstable angina, status post four-vessel CABG 2. Preserved left ventricular systolic function with EF 60%, mild mitral regurgitation and mild tricuspid regurgitation 3. Hypertension 4. Hyperlipidemia, LDL 163, cholesterol 249, triglycerides 214 5. Type 2 diabetes mellitus with preoperative hemoglobin A1c 8% 6. Obesity 7. Osteoarthritis 8. Current tobacco dependence 9. Mild COPD with preoperative FEV1 75% of predicted 10. Postoperative acute blood loss anemia, thrombocytopenia, leukocytosis 11. Postoperative urinary retention Plan: 1. Continue aspirin, statin, Plavix, beta js therapy. Will increase beta js therapy as tolerated 2. Continue Cardizem for radial artery spasm prophylaxis as well as assistance with heart rate control. Do not discontinue CCB without discussing with cardiac surgery 3. Continue Cozaar for afterload reduction 4. Encourage incentive spirometry use 10 times every hour while awake. Bronchodilators per pulmonology. 5. Increase activity, ambulate as tolerated. PT/OT/cardiac rehab consult 6. Will monitor daily labs and x-rays. Electrolyte replacement per protocol. No blood transfusion today. 7. Pain control with current medication regimen. 8. Continue Flomax. 9. Replace sandoval. Will consult urology for retention 10. Daily weight with stand up scale 11. Insulin/diabetic management per primary care service. Need recommendations for discharge, AIc 8% with patient on Metformin only at home 12. Transfer orders placed yesterday for 3S cardiac stepdown, may transfer when bed available 13. Discharge planning in progress. Anticipate discharge to home with home hea lth care in 24-48 hours 14. More recommendations to follow as patient progresses Time with Patient: Greater than 30
--- NOTE | 2019-11-22 07:58 | XR ---
EXAMINATION TYPE: XR chest 2V DATE OF EXAM: 11/22/2019 COMPARISON: 11/21/2019 INDICATION: Post cardiac surgery TECHNIQUE: Frontal and lateral views of the chest are obtained. FINDINGS: The heart size is normal. The pulmonary vasculature is normal. Mild infiltrate is at the right infrahilar region. This may be slightly improved. Small right pleural fluid collection is present. Minimal left pleural fluid is present.. Sternotomy wires are present f rom prior CABG. IMPRESSION: 1. Bilateral small pleural fluid collections. 2. Mild right lower lobe infiltrate
[2019-11-22] MEDS: ASPIRIN 325 MG TAB PO SCH (08:25)
[2019-11-22] MEDS: METOPROLOL TARTRATE 50 MG TAB PO SCH ×2 (08:25→20:41)
[2019-11-22] MEDS: ATORVASTATIN 40 MG TAB PO SCH (08:26)
[2019-11-22] MEDS: HEPARIN SODIUM,PORCINE 5,000 UNIT/ML 1 ML VIAL SQ SCH ×3 (08:26→23:11)
[2019-11-22] MEDS: CLOPIDOGREL 75 MG TAB PO SCH (08:26)
[2019-11-22] MEDS: IPRATROPIUM-ALBUTEROL 3 ML NEB INHALATION SCH ×4 (08:32→19:41)
--- NOTE | 2019-11-22 09:25 | PN ---
PROGRESS NOTE Mr. Bates is a 64-year-old male who presented to undergo coronary artery bypass grafting. He is feeling quite well today. He is anxious to go home. He denies any symptoms of chest pain. He denies any dizziness or palpitations. He continued to be in sinus mechanism. Hemodynamically, he is stable. He is ambulating in the room without any difficulty. He continues to be at this time on aspirin once a day, Plavix 75 mg daily, diltiazem 60 mg q.6 hours, losartan 25 mg daily, metoprolol tartrate 50 mg twice a day. PHYSICAL EXAMINATION: Blood pressure 137/60 with a heart rate in 90s. LUNGS: With mild decrease in breath sounds at bases. No wheezes. HEART:Regular rate and rhythm S1, S2. No S3. No rub. ABDOMEN: Soft and nontender. EXTREMITIES: Trace to 1+ edema. LAB DATA: Revealed hemoglobin of 8.5. BUN creatinine 15 and 0.97. Potassium 4.3. IMPRESSION: 1. Status post coronary artery bypass grafting, stable. 2. History of hypertension. 3. Hyperlipidemia. 4. History of smoking. RECOMMENDATION: We will continue present therapy. Increase his level of activity. I would expect he should be able to be discharged home soon. MMODL / IJN: [id number] /
--- NOTE | 2019-11-22 11:34 | P.PN ---
Subjective Progress Note Date: 11/22/19 Principal diagnosis: Multivessel coronary artery disease, status post four-vessel bypass grafting The patient is seen today 11/21/2019 in follow-up in the intensive care unit. This is postoperative day #4. Status post coronary artery bypass grafting with a WALDEN to LAD, left radial artery graft to the first OM, reverse saphenous vein graft to the second OM and PDA. He is currently sitting up in a chair at the bedside. Awake and alert in no acute distress. He did have some issues with pain throughout the evening but is better controlled today. He is maintaining good O2 saturations in the 90s on room air. No IV fluids. He's been up ambulating with assistance. He continues working well with the incentive spirometer. White count 13.0. Hemoglobin 8.0. Sodium 131. Potassium 4.2. Creatinine 0.89. Remains on DuoNeb inhalations. The patient is seen today 11/22/2019 in follow-up in the intensive care unit. This is postoperative day #5 of a coronary artery bypass grafting surgery. He is currently sitting up in a chair at the bedside. Awake and alert in no acute distress. He is on room air. Maintaining good O2 saturations in the 90s. Chest x-ray reveals small bilateral pleural effusions. Mild right lower lobe infiltrate. Working well with the incentive spirometer. No cough or congestion. He has no IV fluids. He has no complaints. He's been up ambulating with assistance. White count 11.4. Hemoglobin 8.5. Sodium 135. Potassium 4.3. Creatinine 0.97. Magnesium 2.2. He is continued on DuoNeb inhalations, heparin for DVT prophylaxis, Protonix for GI prophylaxis. Objective - Vital Signs Vital signs: Vital Signs Temp 98.4 F 11/22/19 08:00 Pulse 92 11/22/19 08:43 Resp 17 11/22/19 08:00 BP 137/67 11/22/19 08:00 Pulse Ox 96 11/22/19 08:00 Intake & Output 11/21/19 11/22/19 11/22/19 18:59 06:59 18:59 Intake Total 1750 240 Output Total 600 800 Balance 1150 -560 Weight 107.3 kg Intake: Oral 1750 240 Output: Urine 600 800 Other: # Voids 1 0 1 # Bowel Movements 1 1 ABP, PAP, CO, CI - Last Documented Arterial Blood Pressure 115/45 Pulmonary Artery Pressure 27/5 Cardiac Output 6.3 Cardiac Index 2.9 - Exam GENERAL EXAM: Alert, very pleasant, 64-year-old male patient, on room air, in a chair at the bedside, comfortable in no apparent distress. HEAD: Normocephalic/atraumatic. EYES: Normal reaction of pupils, equal size. Conjunctiva pink, sclera white. NOSE: Clear with pink turbinates. THROAT: No erythema or exudates. NECK: No masses, no JVD, no thyroid enlargement, no adenopathy. CHEST: No chest wall deformity. Symmetrical expansion. Midsternal incision clean dry and intact, interval removal of 3 chest tubes, chest tube sites are clean dry and intact, epicardial wires removed LUNGS: Equal air entry with faint crackles in the posterior bases. CVS: Regular rate and rhythm, normal S1 and S2, no gallops, no murmurs, no rubs ABDOMEN: Soft, nontender. No hepatosplenomegaly, normal bowel sounds, no guarding or rigidity. EXTREMITIES: No clubbing, no edema, no cyanosis, 2+ pulses and upper and lower extremities. MUSCULOSKELETAL: Muscle strength and tone normal. SPINE: No scoliosis or deformity SKIN: No rashes. Left radial graft harvest site is covered with a dressing, clean dry and intact, left leg incision covered with the Rui wrap clean dry and intact CENTRAL NERVOUS SYSTEM: No focal deficits, tone is normal in all 4 extremities. PSYCHIATRIC: Alert and oriented -3. Appropriate affect. Intact judgment and insight. - Labs CBC & Chem 7: 11/22/19 03:34 11/22/19 03:34 Labs: Abnormal Lab Results - Last 24 Hours (Table) 11/21/19 11/21/19 11/21/19 Range/Units 11:54 17:06 19:57 WBC (3.8-10.6) k/uL RBC (4.30-5.90) m/uL Hgb (13.0-17.5) gm/dL Hct (39.0-53.0) % Sodium (137-145) mmol/L Glucose (74-99) mg/dL POC Glucose (mg/dL) 285 H 176 H 194 H (75-99) mg/dL Calcium (8.4-10.2) mg/dL 11/22/19 11/22/19 11/22/19 Range/Units 01:39 03:34 03:34 WBC 11.4 H (3.8-10.6) k/uL RBC 2.85 L (4.30-5.90) m/uL Hgb 8.5 L (13.0-17.5) gm/dL Hct 26.6 L (39.0-53.0) % Sodium 135 L (137-145) mmol/L Glucose 114 H (74-99) mg/dL POC Glucose (mg/dL) 206 H (75-99) mg/dL Calcium 7.8 L (8.4-10.2) mg/dL 11/22/19 Range/Units 06:33 WBC (3.8-10.6) k/uL RBC (4.30-5.90) m/uL Hgb (13.0-17.5) gm/dL Hct (39.0-53.0) % Sodium (137-145) mmol/L Glucose (74-99) mg/dL POC Glucose (mg/dL) 111 H (75-99) mg/dL Calcium (8.4-10.2) mg/dL Assessment and Plan Assessment: 1 Symptomatic multivessel coronary artery disease with unstable angina, status post four-vessel CABG, with WALDEN to the LAD, left radial artery to the first OM, reverse SVG to the second OM, reverse SVG to the PDA, endoscopic harvesting of the left radial artery, and right greater saphenous vein, left atrial appendage ligation with 35mm AtriClip and intraoperative transesophageal echocardiogram and a peak aortic scanning, postoperative day #5 2 Postoperative acute blood loss anemia and thrombocytopenia likely related to hemodilution, and cardiopulmonary bypass pump, did not require transfusion 3 Hypertension 4 Hyperlipidemia 5 Type 2 diabetes mellitus 6 Obesity 7 Osteoarthritis 8 Current tobacco dependence 9 Mild COPD with preoperative FEV1 of 75% of predicted 10 Urinary retention, requiring straight catheterization, patient has been started on Flomax Plan: The patient was seen and evaluated by Dr. Caro Chest x-ray and labs reviewed Continue bronchodilators Continue utilizing his incentive spirometer Increase his activity as tolerated Awaiting transfer to the selective care unit Probable home in the next 24 hours We'll continue to follow I, the cosigning physician, performed a history & physical examination of the patient. Lungs sounds with faint crackles in the posterior bases. Maintaining good O2 saturations in the 90s on room air. I discussed the assessment and plan of care with my nurse practitioner, Jeannie Farfan. I attest to the above note as dictated by her.
[2019-11-22 12:05] LABS: Glucose,Whole Blood 172 mg/dL (75-99)
[2019-11-22] MEDS ORDERED: FUROSEMIDE 10 MG/ML 4 ML VIAL IV STA (12:56)
[2019-11-22] MEDS: LOSARTAN 25 MG TAB PO SCH (14:47)
--- NOTE | 2019-11-22 15:32 | P.PN ---
Subjective Progress Note Date: 11/22/19 Principal diagnosis: Multivessel coronary artery disease, status post four-vessel bypass grafting 11/20/2019 patient seen and evaluated in ICU; sitting up in bedside chair; POD #3, status post coronary artery bypass grafting Patient is doing well, he is awake and alert, oriented 3, he sitting up in the recliner, with a pulse ox of 93%, breathing is nonlabored, comfortable, lung sounds are clear, no rhonchi or wheezing no crackles, IV fluids have been hep- locked, Eugene catheter was discontinued yesterday, and apparently patient's having some retention issues patient was started on Flomax, he required straight catheterization today. His sinus rhythm on the monitor. No acute events overnight, chest x-ray just shows atelectasis, patient will receive a dose of Lasix today. He is working on incentive spirometer, his been tolerating ambulation, his chest tubes came out yesterday, his epicardial wires have been grounded. Is receiving stool softeners. Surgical incisions are clean dry and intact. 11/21/2019 Patient is seen in follow-up in the intensive care unit. This is postoperative day #4. Status post coronary artery bypass grafting with a WALDEN to LAD, left radial artery graft to the first OM, reverse saphenous vein graft to the second OM and PDA. He is currently sitting up in a chair at the bedside. Awake and alert in no acute distress. He did have some issues with pain throughout the evening but is better controlled today. He is maintaining good O2 saturations in the 90s on room air. No IV fluids. He's been up ambulating with assistance. He continues working well with the incentive spirometer. White count 13.0. Hemoglobin 8.0. Sodium 131. Potassium 4.2. Creatinine 0.89. Remains on DuoNeb inhalations. 11/22/2019 Patient is seen in follow-up in the intensive care unit; POD #5 of a coronary artery bypass grafting surgery. He is currently sitting up in a chair at the bedside. Awake and alert in no acute distress. He is on room air. Maintaining good O2 saturations in the 90s. Chest x-ray reveals small bilateral pleural effusions. Mild right lower lobe infiltrate. Working well with the incentive spirometer. No cough or congestion. He has no IV fluids. He has no complaints. He's been up ambulating with assistance. White count 11.4. He moglobin 8.5. Sodium 135. Potassium 4.3. Creatinine 0.97. Magnesium 2.2. He is continued on DuoNeb inhalations, heparin for DVT prophylaxis, Protonix for GI prophylaxis. Blood sugars are improved by decreasing Levemir to 20 units Possible discharge in next 24 hours Objective - Vital Signs Vital signs: Vital Signs Temp 98.4 F 11/22/19 08:00 Pulse 92 11/22/19 08:43 Resp 17 11/22/19 08:00 BP 137/67 11/22/19 08:00 Pulse Ox 96 11/22/19 08:00 Intake & Output 11/21/19 11/22/19 11/22/19 18:59 06:59 18:59 Intake Total 1750 240 Output Total 600 800 Balance 1150 -560 Weight 107.3 kg Intake: Oral 1750 240 Output: Urine 600 800 Other: # Voids 1 0 1 # Bowel Movements 1 1 ABP, PAP, CO, CI - Last Documented Arterial Blood Pressure 115/45 Pulmonary Artery Pressure 27/5 Cardiac Output 6.3 Cardiac Index 2.9 - Exam GENERAL EXAM: Alert, very pleasant, 64-year-old white male, on 3 L of oxygen a pulse ox of 93%, comfortable in no apparent distress. HEAD: Normocephalic/atraumatic. EYES: Normal reaction of pupils, equal size. Conjunctiva pink, sclera white. NOSE: Clear with pink turbinates. THROAT: No erythema or exudates. NECK: No masses, no JVD, no thyroid enlargement, no adenopathy. CHEST: No chest wall deformity. Symmetrical expansion. Midsternal incision clean dry and intact, interval removal of 3 chest tubes, chest tube sites are clean dry and intact, epicardial wires grounded LUNGS: Equal air entry with no crackles, wheeze, rhonchi or dullness. CVS: Regular rate and rhythm, normal S1 and S2, no gallops, no murmurs, no rubs ABDOMEN: Soft, nontender. No hepatosplenomegaly, normal bowel sounds, no guarding or rigidity. EXTREMITIES: No clubbing, no edema, no cyanosis, 2+ pulses and upper and lower extremities. - Labs CBC & Chem 7: 11/22/19 03:34 11/22/19 03:34 Labs: Abnormal Lab Results - Last 24 Hours (Table) 11/21/19 11/21/19 11/21/19 Range/Units 11:54 17:06 19:57 WBC (3.8-10.6) k/uL RBC (4.30-5.90) m/uL Hgb (13.0-17.5) gm/dL Hct (39.0-53.0) % Sodium (137-145) mmol/L Glucose (74-99) mg/dL POC Glucose (mg/dL) 285 H 176 H 194 H (75-99) mg/dL Calcium (8.4-10.2) mg/dL 11/22/19 11/22/19 11/22/19 Range/Units 01:39 03:34 03:34 WBC 11.4 H (3.8-10.6) k/uL RBC 2.85 L (4.30-5.90) m/uL Hgb 8.5 L (13.0-17.5) gm/dL Hct 26.6 L (39.0-53.0) % Sodium 135 L (137-145) mmol/L Glucose 114 H (74-99) mg/dL POC Glucose (mg/dL) 206 H (75-99) mg/dL Calcium 7.8 L (8.4-10.2) mg/dL 11/22/19 Range/Units 06:33 WBC (3.8-10.6) k/uL RBC (4.30-5.90) m/uL Hgb (13.0-17.5) gm/dL Hct (39.0-53.0) % Sodium (137-145) mmol/L Glucose (74-99) mg/dL POC Glucose (mg/dL) 111 H (75-99) mg/dL Calcium (8.4-10.2) mg/dL Assessment and Plan Assessment: Multiple vessel coronary artery disease status post CABG Diabetes mellitus Hypertension Hyperlipidemia Primary osteoarthritis History of panic attack Plan: 64 years old male who presents with CABG. Patient emerged closely in the ICU. Continue with aspirin and Plavix. Continue with insulin. Patient is monitored closely by several consultants including cardiology and pulmonary besides the cardio thoracic surgery primary team. Labs and medication were reviewed.. Continue same treatment. Continue with symptomatic treatment. Resume home medication. Monitor lytes and vitals. DVT and GI prophylaxis. Further recommendations of the clinical course of the patient DVT prophylaxis: Subcutaneous heparin GI Prophylaxis: Ppi
[2019-11-22 16:35] LABS: Glucose,Whole Blood 336 mg/dL (75-99)
[2019-11-22 16:46] LABS: Glucose,Whole Blood 265 mg/dL (75-99)
[2019-11-22] MEDS: TAMSULOSIN 0.4 MG CAP.ER.24H PO SCH (18:40)
[2019-11-22] MEDS: ACETAMINOPHEN TAB 500 MG TAB PO PRN (20:39)
[2019-11-22] MEDS: SENNOSIDES-DOCUSATE SODIUM 1 EACH TAB PO SCH (20:42)
[2019-11-22 20:46] LABS: Glucose,Whole Blood 162 mg/dL (75-99)
[2019-11-22] MEDS: INSULIN DETEMIR (LEVEMIR) 100 UNIT/ML SYR SQ SCH (20:49)
[2019-11-23 01:43] LABS: Glucose,Whole Blood 237 mg/dL (75-99)
[2019-11-23 01:45] VITALS: RESP 16
[2019-11-23] MEDS: INSULIN ASPART (NovoLOG) 100 UNIT/ML VIAL SQ SCH ×3 (01:56→12:53)
[2019-11-23] MEDS: PANTOPRAZOLE 40 MG TABLET PO SCH (06:42)
[2019-11-23 06:48] LABS: Glucose,Whole Blood 116 mg/dL (75-99)
[2019-11-23] MEDS: DILTIAZEM CD 240 MG CAP.ER.24H PO SCH ×2 (06:49→07:41)
[2019-11-23] MEDS: IPRATROPIUM-ALBUTEROL 3 ML NEB INHALATION SCH ×4 (07:27→18:13)
--- NOTE | 2019-11-23 07:48 | P.PN ---
Subjective Progress Note Date: 11/23/19 Principal diagnosis: Symptomatic multivessel coronary artery disease with unstable angina, preserved left ventricular systolic function with EF 60%, mild mitral regurgitation and m ild tricuspid regurgitation. Previous medical history of hypertension, hyperlipidemia, type 2 diabetes mellitus with preoperative hemoglobin A1c 8%, obesity, osteoarthritis, current tobacco dependence, and mild COPD with preoperative FEV1 75% of predicted POD #6 coronary artery bypass grafting 4 vessels with left internal mammary artery to the left anterior descending artery, radial artery to the first obtuse marginal artery, reverse saphenous vein graft to the second obtuse marginal artery, reverse saphenous vein graft to the posterior descending artery, endoscopic harvesting of the left radial artery, endoscopic harvesting of the right greater saphenous vein, left atrial appendage ligation with 35 mm AtriCure clip, intraoperative transesophageal echocardiogram and epi-aortic scanning Postoperative acute blood loss anemia and thrombocytopenia, expected given hemodilution and cardiopulmonary bypass pump Postoperative leukocytosis, expected, reactive Postoperative urinary retention, unexpected The patient is currently sitting up in a recliner in the intensive care unit in no acute distress eating breakfast. He states pain is well controlled on current medication regimen, denies shortness of breath. He remains in normal sinus rhythm. Patient was able to void 200-400 mL at a time, however PVR was still revealing high amounts of urine (last PVR 800 mL) and sandoval was replaced. Patient has been on Flomax for 4 days, urology consulted for recommendations. Patient has already been informed he may need to be discharged with a Sandoval in place to follow up with urology outpatient. Blood sugars have remained uncontrolled. Ambulatory in the hallway without difficulty. Objective - Vital Signs Vital signs: Vital Signs Temp 98.0 F 11/23/19 04:00 Pulse 111 H 11/23/19 07:38 Resp 16 11/23/19 04:00 BP 124/62 11/23/19 04:00 Pulse Ox 93 L 11/23/19 04:00 Intake & Output 11/22/19 11/23/19 11/23/19 18:59 06:59 18:59 Intake Total 240 Output Total 1600 3060 Balance -1600 -2820 Weight 103.7 kg Intake: Oral 240 Output: Urine 1600 3060 Other: Voiding Method Urinal Indwelling Catheter # Voids 1 # Bowel Movements 1 ABP, PAP, CO, CI - Last Documented Arterial Blood Pressure 115/45 Pulmonary Artery Pressure 27/5 Cardiac Output 6.3 Cardiac Index 2.9 - Constitutional General appearance: Present: cooperative, no acute distress - Respiratory Details: Lungs sounds diminished bilaterally. Respirations even, nonlabored. Currently on room air with oxygen saturation 93%. Able to achieve 2000 mL on his incentive spirometry. Strong cough with yellow sputum. - Cardiovascular Details: S1, S2 present. Regular rate and rhythm, sinus rhythm on telemetry. Sternum stable. Palpable peripheral pulses bilaterally. No edema present. No calf pain or tenderness noted. Heart hugger in place with patient demonstrating appropriate use. Antiembolism stockings, SCDs present. - Gastrointestinal Gastrointestinal Comment(s): Abdomen soft, nontender, nondistended. Active bowel sounds present 4 quadrants. Tolerating diet. Positive bowel movement. - Genitourinary Genitourinary Comment(s): Sandoval replaced yesterday. Output 2910 mL in the last 12 hours. - Integumentary Integumentary Comment(s): Skin is warm and dry with evidence of good perfusion. Anterior chest incision well approximated and covered with dry intact dressing. Right lower extremity EVH site well approximated without redness or drainage. Left radial artery harvest site well approximated without redness or drainage. Patient able to wiggle fingers and claims agent right of way appropriately, denies numbness or tingling, good cap refill. - Neurologic Neurologic: Present: CNII-XII intact - Musculoskeletal Musculoskeletal: Present: gait normal, strength equal bilaterally - Psychiatric Psychiatric: Present: A&O x's 3, appropriate affect, intact judgment & insight - Allied health notes Allied health notes reviewed: nursing - Labs CBC & Chem 7: 11/23/19 07:33 11/23/19 07:33 Labs: Abnormal Lab Results - Last 24 Hours (Table) 11/22/19 11/22/19 11/22/19 Range/Units 12:04 16:34 16:44 POC Glucose (mg/dL) 172 H 336 H 265 H (75-99) mg/dL 11/22/19 11/23/19 11/23/19 Range/Units 20:45 01:41 06:47 POC Glucose (mg/dL) 162 H 237 H 116 H (75-99) mg/dL - Imaging and Cardiology Chest x-ray: image reviewed Assessment and Plan Assessment: 1. Symptomatic multivessel coronary artery disease with unstable angina, status post four-vessel CABG 2. Preserved left ventricular systolic function with EF 60%, mild mitral regurgitation and mild tricuspid regurgitation 3. Hypertension 4. Hyperlipidemia, LDL 163, cholesterol 249, triglycerides 214 5. Type 2 diabetes mellitus with preoperative hemoglobin A1c 8% 6. Obesity 7. Osteoarthritis 8. Current tobacco dependence 9. Mild COPD with preoperative FEV1 75% of predicted 10. Postoperative acute blood loss anemia, thrombocytopenia, leukocytosis 11. Postoperative urinary retention Plan: 1. Continue aspirin, statin, Plavix, beta js therapy. Will increase beta js therapy as tolerated 2. Continue Cardizem for radial artery spasm prophylaxis as well as assistance with heart rate control, switched to long-acting Cardizem CD today. Do not discontinue CCB without discussing with cardiac surgery 3. Continue Cozaar for afterload reduction 4. Encourage incentive spirometry use 10 times every hour while awake. Bronchodilators per pulmonology. 5. Increase activity, ambulate as tolerated. PT/OT/cardiac rehab consult 6. Will monitor daily labs and x-rays. Electrolyte replacement per protocol. No blood transfusion today. 7. Pain control with current medication regimen. 8. Continue Flomax. 9. Replace sandoval. Urology consulted for retention 10. Daily weight with stand up scale 11. Insulin/diabetic management per primary care service. Need recommendations for discharge, AIc 8% with patient on Metformin only at home, blood sugars have been elevated, has required 15 units of NovoLog in the last 24 hours along with 20 units Levemir, patient has had several blood sugars in the 200s and 300s 12. Transfer orders placed for 3S cardiac stepdown, may transfer when bed available 13. Discharge planning in progress. Anticipate discharge to home with home health care later today vs. tomorrow once urology recommendations have been made as well as blood sugar management 14. More recommendations to follow as patient progresses Time with Patient: Greater than 30
[2019-11-23 08:01] LABS: HCT 27.7 % (39.0-53.0); HGB 9.2 gm/dL (13.0-17.5); Hypochromasia Slight; MCH 30.9 pg (25.0-35.0); MCHC 33.3 g/dL (31.0-37.0); MCV 93.1 fL (80.0-100.0); Mean Platelet Volume 8.5; Platelet Count 420 k/uL (150-450); RBC 2.98 m/uL (4.30-5.90); RDW 14.2 % (11.5-15.5); WBC 14.3 k/uL (3.8-10.6)
[2019-11-23 08:13] LABS: African American GFR (CKD) >90 (>60 ml/min/1.73 sqM); Anion Gap 8 mmol/L; Blood Urea Nitrogen 20 mg/dL (9-20); Calcium 8.4 mg/dL (8.4-10.2); Carbon Dioxide 23 mmol/L (22-30); Chloride 104 mmol/L (98-107); Glucose 127 mg/dL (74-99); Magnesium 1.9 mg/dL (1.6-2.3); Non-African American GFR(CKD) >90 (>60 ml/min/1.73 sqM); Potassium 4.5 mmol/L (3.5-5.1); Sodium 135 mmol/L (137-145)
--- NOTE | 2019-11-23 08:13 | XR ---
EXAMINATION TYPE: XR chest 2V DATE OF EXAM: 11/23/2019 COMPARISON: Prior chest x-ray 11/22/2019 HISTORY: Status post cardiac surgery TECHNIQUE: Frontal and lateral views of the chest are obtained. FINDINGS: There are overlying artifacts and patient is post median sternotomy, atrial appendage clip ping placement. Aorta is dense. Cardiac mediastinal silhouette, pulmonary vascularity and corey are st able. There is no pneumothorax. Minimal blunting of the costophrenic angles is present. Some patchy p erihilar density is present. Flattening the hemidiaphragms and increased AP diameter chest consistent with underlying COPD. IMPRESSION: There may be residual atelectasis, difficult to exclude pneumonia or edema. Suspect some minimal effusions.
[2019-11-23] MEDS ORDERED: FUROSEMIDE 10 MG/ML 2 ML VIAL IV ONE (08:30)
[2019-11-23] MEDS: ASPIRIN 325 MG TAB PO SCH (09:14)
[2019-11-23] MEDS: METOPROLOL TARTRATE 50 MG TAB PO SCH (09:14)
[2019-11-23] MEDS: MAGNESIUM SULFATE-D5W PMX 1 GM in DEXTROSE/WATER 1 100ML.BAG IVPB SCH ×2 (09:14→12:52)
[2019-11-23] MEDS: ATORVASTATIN 40 MG TAB PO SCH (09:14)
[2019-11-23] MEDS: HEPARIN SODIUM,PORCINE 5,000 UNIT/ML 1 ML VIAL SQ SCH (09:15)
[2019-11-23] MEDS: CLOPIDOGREL 75 MG TAB PO SCH (09:15)
[2019-11-23] MEDS ORDERED: METOPROLOL TARTRATE 25 MG TAB PO STA (09:55)
--- NOTE | 2019-11-23 10:37 | P.PN ---
Subjective This is a pleasant 64-year-old male status post coronary artery bypass grafting. He follows regularly in the office with Dr. Iqbal. He is seen and examined sitting up in the chair in no acute distress. He complains of discomfort at the site of his sternal incision site. No exertional chest pain or shortness of breath. He is mildly tachycardic this morning with a minimal amount of lower extremity edema. CT surgery has ordered a one-time dose of IV Lasix and Cardizem along with his Lopressor. Blood pressure 124/62 heart rate 111 afebrile maintaining oxygen saturation on room air. Laboratory data reviewed, WBC 14.3, hemoglobin 9.2, platelets 420, sodium 135, potassium 4.5, creatinine 0.9 and magnesium 1.9. Chest x-ray reveals residual atelectasis. GENERAL: Well-appearing, well-nourished and in no acute distress. NECK: Supple without JVD or thyromegaly. LUNGS: Breath sounds clear to auscultation bilaterally. Respiration equal and unlabored. No wheezes, rales or rhonchi. HEART: Regular rate and rhythm, tachycardiac without murmurs, rubs or gallops. S1 and S2 heard. Heart heart rate in place. EXTREMITIES: Normal range of motion, trace bilateral lower extremity pitting edema. No clubbing or cyanosis. Peripheral pulses intact. ASSESSMENT Status post coronary artery bypass grafting Hypertension Dyslipidemia PLAN Agree with IV Lasix. Consider increasing beta sj if heart rate continues to be elevated. Follow-up with Dr. Iqbal upon discharge. Nurse Practitioner note has been reviewed, I agree with a documented findings and plan of care. Patient was seen and examined. Objective - Vital Signs Vital signs: Vital Signs Temp 98.0 F 11/23/19 04:00 Pulse 111 H 11/23/19 07:38 Resp 16 11/23/19 04:00 BP 124/62 11/23/19 04:00 Pulse Ox 93 L 11/23/19 04:00 Intake & Output 11/22/19 11/23/19 11/23/19 18:59 06:59 18:59 Intake Total 240 Output Total 1600 3060 Balance -1600 -2820 Weight 103.7 kg Intake: Oral 240 Output: Urine 1600 3060 Other: Voiding Method Urinal Indwelling Catheter # Voids 1 # Bowel Movements 1 ABP, PAP, CO, CI - Last Documented Arterial Blood Pressure 115/45 Pulmonary Artery Pressure 27/5 Cardiac Output 6.3 Cardiac Index 2.9 - Labs CBC & Chem 7: 11/23/19 07:33 11/23/19 07:33 Labs: Abnormal Lab Results - Last 24 Hours (Table) 11/22/19 11/22/19 11/22/19 Range/Units 12:04 16:34 16:44 WBC (3.8-10.6) k/uL RBC (4.30-5.90) m/uL Hgb (13.0-17.5) gm/dL Hct (39.0-53.0) % Sodium (137-145) mmol/L Glucose (74-99) mg/dL POC Glucose (mg/dL) 172 H 336 H 265 H (75-99) mg/dL 11/22/19 11/23/19 11/23/19 Range/Units 20:45 01:41 06:47 WBC (3.8-10.6) k/uL RBC (4.30-5.90) m/uL Hgb (13.0-17.5) gm/dL Hct (39.0-53.0) % Sodium (137-145) mmol/L Glucose (74-99) mg/dL POC Glucose (mg/dL) 162 H 237 H 116 H (75-99) mg/dL 11/23/19 11/23/19 Range/Units 07:33 07:33 WBC 14.3 H (3.8-10.6) k/uL RBC 2.98 L (4.30-5.90) m/uL Hgb 9.2 L (13.0-17.5) gm/dL Hct 27.7 L (39.0-53.0) % Sodium 135 L (137-145) mmol/L Glucose 127 H (74-99) mg/dL POC Glucose (mg/dL) (75-99) mg/dL
[2019-11-23 11:59] LABS: Glucose,Whole Blood 207 mg/dL (75-99)
[2019-11-23] MEDS: LOSARTAN 25 MG TAB PO SCH (12:52)
--- NOTE | 2019-11-23 14:45 | P.PN ---
Subjective Progress Note Date: 11/23/19 On 11/23/2019, the patient is being seen in follow-up and the patient is postop day #6 following coronary artery bypass surgery which involved a WALDEN to LAD and radiographs to OM1 and reverse saphenous vein graft to OM 2 and PDA. The patient tolerated the surgery well without any major complication. The patient is resting comfortably in bed and he is able to get up and ambulate. The patient developed some acute blood loss anemia following surgery and this was expected due to hemodilution and coronary artery bypass pump. The patient also developed some limited leukocytosis and urinary retention all expected related to the surgery. The patient has a preserved LV function with an ejection fracti on of 60%. The patient a preop FEV1 of 75% of predicted. The patient is doing well and pain is under good control for now. BP is under good control. The patient is using incentive spirometer. No other significant events otherwise for now. The patient continues to use incentive spirometer. Hemoglobin today is at 8.2. The patient will specific complaints. Chest tubes have been all removed. The patient was able to void however, he developed increased urinary retention with a post-volume residual being 800 mL in the Eugene catheter was replaced and the patient was started on Flomax. Urology consultation was also requested. No other complaints otherwise for now. Objective - Vital Signs Vital signs: Vital Signs Temp 98.0 F 11/23/19 04:00 Pulse 93 11/23/19 11:39 Resp 16 11/23/19 04:00 BP 124/62 11/23/19 04:00 Pulse Ox 93 L 11/23/19 04:00 Intake & Output 11/22/19 11/23/19 11/23/19 18:59 06:59 18:59 Intake Total 240 Output Total 1600 3060 Balance -1600 -2820 Weight 103.7 kg Intake: Oral 240 Output: Urine 1600 3060 Other: Voiding Method Urinal Indwelling Catheter # Voids 1 # Bowel Movements 1 ABP, PAP, CO, CI - Last Documented Arterial Blood Pressure 115/45 Pulmonary Artery Pressure 27/5 Cardiac Output 6.3 Cardiac Index 2.9 - Exam - Constitutional General appearance: Present: cooperative, no acute distress - Respiratory Details: Lungs sounds diminished bilaterally. Respirations even, nonlabored. Currently on room air with oxygen saturation 93%. Able to achieve 2000 mL on his incentive spirometry. Strong cough with yellow sputum. - Cardiovascular Details: S1, S2 present. Regular rate and rhythm, sinus rhythm on telemetry. Sternum stable. Palpable peripheral pulses bilaterally. No edema present. No calf pain or tenderness noted. Heart hugger in place with patient demonstrating appropriate use. Antiembolism stockings, SCDs present. - Gastrointestinal Gastrointestinal Comment(s): Abdomen soft, nontender, nondistended. Active bowel sounds present 4 quadrants. Tolerating diet. Positive bowel movement. - Genitourinary Genitourinary Comment(s): Eugene replaced yesterday. Output 2910 mL in the last 12 hours. - Integumentary Integumentary Comment(s): Skin is warm and dry with evidence of good perfusion. Anterior chest incision well approximated and covered with dry intact dressing. Right lower extremity EVH site well approximated without redness or drainage. Left radial artery harvest site well approximated without redness or drainage. Patient able to wiggle fingers and quiller machine fixer appropriately, denies numbness or tingling, good cap refill. - Neurologic Neurologic: Present: CNII-XII intact - Musculoskeletal Musculoskeletal: Present: gait normal, strength equal bilaterally - Psychiatric Psychiatric: Present: A&O x's 3, appropriate affect, intact judgment & insight - Labs CBC & Chem 7: 11/23/19 07:33 11/23/19 07:33 Labs: Abnormal Lab Results - Last 24 Hours (Table) 11/22/19 11/22/19 11/22/19 Range/Units 16:34 16:44 20:45 WBC (3.8-10.6) k/uL RBC (4.30-5.90) m/uL Hgb (13.0-17.5) gm/dL Hct (39.0-53.0) % Sodium (137-145) mmol/L Glucose (74-99) mg/dL POC Glucose (mg/dL) 336 H 265 H 162 H (75-99) mg/dL 11/23/19 11/23/19 11/23/19 Range/Units 01:41 06:47 07:33 WBC 14.3 H (3.8-10.6) k/uL RBC 2.98 L (4.30-5.90) m/uL Hgb 9.2 L (13.0-17.5) gm/dL Hct 27.7 L (39.0-53.0) % Sodium (137-145) mmol/L Glucose (74-99) mg/dL POC Glucose (mg/dL) 237 H 116 H (75-99) mg/dL 11/23/19 11/23/19 Range/Units 07:33 11:57 WBC (3.8-10.6) k/uL RBC (4.30-5.90) m/uL Hgb (13.0-17.5) gm/dL Hct (39.0-53.0) % Sodium 135 L (137-145) mmol/L Glucose 127 H (74-99) mg/dL POC Glucose (mg/dL) 207 H (75-99) mg/dL Assessment and Plan Plan: 1 Coronary artery disease, symptomatic and the patient presented with unstable angina and the patient underwent four-vessel bypass surgery. The patient is postop day #6. 2 post thoracotomy, chest tubes are removed and the patient has small bilateral pleural effusions, the chest tubes are removed for sexually without any major issues 3 preserved LV function with a preop ejection fraction of 60% 4 hypertension 5 hyperlipidemia with an LDL level of 160 to the 6 diabetes mellitus type 2 7 obesity with a BMI of 34.9 8 history of smoking 9 COPD, mild with an FEV1 preoperatively of 75% of predicted. 10 postoperative anemia, expected outcome of surgery 11 urinary retention patient has a Eugene catheter in place and Flomax was restarted. Plan Continue aspirin and Plavix and beta blockers Keep the Eugene catheter in place and start the patient on Flomax Keep the Lantus insulin long-acting 20 units along with scattered coverage Continue Cozaar Transfer this patient to telemetry for further monitoring. The patient is stable for now.
--- NOTE | 2019-11-23 15:54 | P.DS ---
Providers Date of admission: 11/17/19 06:12 Expected date of discharge: 11/23/19 Attending physician: Valentin Scales Consults: 11/17/19 14:37 Consult Physician Routine Consulting Provider: [place] Consult Reason/Comments: Development Specialist Consult: post cardiac surgery Do you want consulting provider notified?: Yes Consult Physician Routine Consulting Provider: Mariam Ibanez Consult Reason/Comments: Medical/Diabetic management Do you want consulting provider notified?: Yes Consult Physician Routine Consulting Provider: Vick Iqbal Consult Reason/Comments: Door To Door Salesman Consult: post cardiac surgery Do you want consulting provider notified?: Yes 11/22/19 11:12 Consult Physician Routine Consulting Provider: Elfego Scott Consult Reason/Comments: retention despite flomax Do you want consulting provider notified?: Yes Primary care physician: Stated None Hospital Course: FINAL DIAGNOSIS: 1. Symptomatic multivessel coronary artery disease with unstable angina 2. Preserved left ventricular systolic function with EF 60% 3. Mild mitral regurgitation and mild tricuspid regurgitation 4. Hypertension 5. Hyperlipidemia, LDL 163, cholesterol 249, triglycerides 214 6. Type 2 diabetes mellitus with hemoglobin A1c 8% 7. Obesity 8. Osteoarthritis 9. Current tobacco dependence 10. Mild COPD with preoperative FEV1 75% of predicted 11. Postoperative acute blood loss anemia and thrombocytopenia, leukocytosis, expected 12. Postoperative urinary retention, unexpected PRINCIPAL PROCEDURE: 1. Coronary artery bypass grafting 4 vessels with the left internal mammary artery to the left anterior descending artery, radial artery to the first obtuse marginal artery, reverse saphenous vein graft to second obtuse marginal artery, reverse saphenous vein graft to the posterior descending artery 2. Endoscopic harvesting of the left radial artery 3. Endoscopic harvesting of the right greater saphenous vein 4. Left atrial appendage ligation with 35 mm AtriCure clip 5. Intraoperative transesophageal echocardiogram and epi-aortic scanning HISTORY OF PRESENT ILLNESS: This is a 64-year-old gentleman who follows on an outpatient basis with Dr. Villanueva. Recently he began experiencing exertional chest pain associated with shortness of breath. He sought medical attention at his primary care office and was referred to Dr. Iqbal from [facility]. A 2-D echocardiogram was completed in the office demonstrating normal left ventricular size and function with ejection fraction 60%, mild mitral valve regurgitation and mild tricuspid valve regurgitation. Due to his risk factors and symptomatology he was recommended to undergo elective heart catheterization which demonstrated 70-80% focal stenosis of the mid left anterior descending coronary artery, 50-60% ostial stenosis of the circumflex coronary artery, 90% ostial stenosis of the first obtuse marginal coronary artery, and 95% stenosis to the mid right coronary artery. Consultation was placed to Dr. Scales from cardiothoracic surgery. He was recommended to undergo elective coronary artery bypass surgery. The usual perioperative course was discussed in detail with the patient and his family, all risks and benefits were explained, all questions were answered, and consent was obtained to proceed with surgery. The patient was discharged to home on maximal medical therapy to return as an outpatient for surgery at the earliest possible date. HOSPITAL COURSE: The patient was brought to the hospital on 11/17/2019, taken to the preoperative area, prepared in the usual fashion, and subsequently taken to the operating room where Dr. Scales performed 4 vessel CABG. Upon completion of surgery the patient was transferred to the cardiovascular intensive care unit where he was recovered, monitored hemodynamically, and where he progressed to cardiac rehabilitation phase 1. He was extubated, all lines, tubes, and drips were discontinued when appropriate, and transfer orders were placed for 3 S. cardiac stepdown unit, however there was no bed availability and the patient remained on ICU as a stepdown patient until discharge. He did experience acute blood loss anemia, thrombocytopenia, and leukocytosis all which are expected outcomes of surgery and needed no intervention. In addition he experienced postoperative urinary retention, was placed on Flomax, but unfortunately he continued to have urinary retention and sandoval catheter was reinserted and left in place at discharge for patient to follow-up with urology. His oxygen was titrated down, he continued to work with physical and occupational therapy, he was tolerating oral diet, his pain was controlled, and he was ready to be discharged to home with [facility] on postoperative day #6. He received written and verbal instruction regarding his medications, activity restrictions, signs and symptoms requiring physician notification, and follow-up appointments. COMPLICATIONS: The patient experienced postoperative urinary retention treated with Flomax, reinsertion of sandoval, and urology follow-up. Patient Condition at Discharge: Stable Plan - Discharge Summary Discharge Rx Participant: No New Discharge Prescriptions: New Aspirin 325 mg PO DAILY #30 tab Diltiazem Cd [Cardizem CD] 240 mg PO Q24H #30 cap.er.24h Losartan [Cozaar] 25 mg PO DAILY@1200 #30 tab Tamsulosin [Flomax] 0.4 mg PO PC-SUPPER #30 cap.er.24h Insulin Glargine,Hum.rec.anlog [Lantus Solostar] 25 unit SQ HS #3 pen Metoprolol Tartrate [Lopressor] 75 mg PO BID #60 tab Clopidogrel [Plavix] 75 mg PO DAILY #30 tab Pantoprazole [Protonix] 40 mg PO AC-BRKFST #30 tablet.dr Matos-Docusate Sodium [Senokot-S] 2 each PO HS PRN tab PRN Reason: Constipation Acetaminophen Tab [Tylenol] 1,000 mg PO Q6HR PRN #120 tab PRN Reason: Fever and/ or Mild Pain Continue metFORMIN HCL [Glucophage] 1,000 mg PO BID Atorvastatin [Lipitor] 80 mg PO DAILY Discontinued Nitroglycerin Sl Tabs [Nitrostat] 0.4 mg SUBLINGUAL Q5M PRN PRN Reason: Chest Pain Meloxicam [Mobic] 7.5 mg PO DAILY Losartan Potassium [Cozaar] 100 mg PO DAILY Aspirin 81 mg PO DAILY Isosorbide Mononitrate ER [Imdur] 30 mg PO DAILY Metoprolol Succinate [Toprol XL] 50 mg PO DAILY Discharge Medication List metFORMIN HCL [Glucophage] 1,000 mg PO BID 11/10/19 [History] Atorvastatin [Lipitor] 80 mg PO DAILY 11/11/19 [History] Acetaminophen Tab [Tylenol] 1,000 mg PO Q6HR PRN #120 tab 11/23/19 [Rx] Aspirin 325 mg PO DAILY #30 tab 11/23/19 [Rx] Clopidogrel [Plavix] 75 mg PO DAILY #30 tab 11/23/19 [Rx] Diltiazem Cd [Cardizem CD] 240 mg PO Q24H #30 cap.er.24h 11/23/19 [Rx] Insulin Glargine,Hum.rec.anlog [Lantus Solostar] 25 unit SQ HS #3 pen 11/23/19 [Rx] Losartan [Cozaar] 25 mg PO DAILY@1200 #30 tab 11/23/19 [Rx] Metoprolol Tartrate [Lopressor] 75 mg PO BID #60 tab 11/23/19 [Rx] Pantoprazole [Protonix] 40 mg PO AC-BRKFST #30 tablet. 11/23/19 [Rx] Sennosides-Docusate Sodium [Senokot-S] 2 each PO HS PRN tab 11/23/19 [Rx] Tamsulosin [Flomax] 0.4 mg PO PC-SUPPER #30 cap.er.24h 11/23/19 [Rx] Follow up Appointment(s)/Referral(s): Rehab [facility],Cardiac [NON-STAFF] - 4 Weeks (You will be called in 4-6 weeks for initial evaluation for cardiac rehab) Maribel Villanueva MD [REFERRING] - 12/01/19 1:00 pm Jeannie Farfan NPC [Nurse Practitioner] - 12/11/19 2:30 pm Tin Padilla NPC [Nurse Practitioner] - 11/27/19 11:30 am [facility], [NON-STAFF] - Valentin Scales MD [STAFF PHYSICIAN] - 12/14/19 9:30 am Vick Iqbal MD [STAFF PHYSICIAN] - 12/01/19 9:30 am Elfego Scott MD [STAFF PHYSICIAN] - 11/27/19 2:40 pm Ambulatory/Diagnostic Orders: Complete Blood Count w/diff [LAB.AMB] Time Frame: 3 Days, Location: None Selected Comprehensive Metabolic Panel [LAB.AMB] Time Frame: 3 Days, Location: None Selected Activity/Diet/Wound Care/Special Instructions: DISCHARGE INSTRUCTIONS: 1. No driving for 4 weeks, or until physician gives their ok. 2. The patient should sleep in their own bed, no medical bed needed. 3. Stairs are not an issue. If the bedroom is upstairs, it is advised that the patient go up at night and down in the morning for the first week. Go slowly, using handrail and take 1 step at a time. 4. ZULEIKA hose are to be worn for 30 days or until physician discontinues. 5. Heart hugger is to be worn 100% of the time until physician discontinues.(except when showering) 6. No lifting, pushing, or pulling more than 10 pounds for 12 weeks. The physician will advise of any restriction changes. 7. The patient is expected to continue the prescribed walking program. 8. Continue pain control per as needed orders. 9. Continue with incentive spirometry and splinting/heart hugger until otherwise directed by the physician. 10. Must shower daily using liquid antibacterial soap and a separate white washcloth for each individual incision. 11. Routine sternal incision care. No powders, lotions, ointments on incisions. No dressings are necessary on incisions unless they are draining. Dermabond tape is to remain on sternal incision until surgeon follow-up. 12. Please call surgeon/TAXICAB DRIVER for temp greater than 101 F or purulent drainage from incisions. 13. All prescriptions given by surgeon for 30 days. Refills need to be filled through fire equipment operator/primary care physician. 14. A Red armband has been placed on the patient. It should be worn for 30 days post surgery and will be removed by the cardiac surgeons. If an ER visit is necessary, please make sure the number on the Red armband is called. 15. You have been referred to and are expected to begin Cardiac Rehab in approximately 4-6 weeks. 16. Patient should check blood sugars before each meal and at bedtime, keep a log of his blood sugars and bring with him to his primary care physician appointment HOME HEALTH SERVICES TO PROVIDE: RN SKILLED HOME CARE SERVICES FOR POST-OP SURGICAL PATIENTS WITH THE FOLLOWING: Coronary Artery Bypass Surgery (CABG), Mitral Valve Replacement/Repair ( MVR), Aortic Valve Replacement/Repair (AVR) RN TO CONTINUE EDUCATION FROM ``ROAD TO A HEALTH HEART PATIENT EDUCATION MANUAL (GIVEN TO PATIENT IN THE HOSPITAL) MEDICATION RECONCILIATION WITH EDUCATION NEEDED ON FIRST HOME VISIT EMPHASIZE IMPORTANCE OF WEARING BREAST SUPPORT/HEART HUGGER ENCOURAGE USE OF INCENTIVE SPIROMETER 10 X EVERY HOUR WHILE AWAKE ENCOURAGE UTILIZATION OF LOWER EXTREMITY COMPRESSION STOCKINGS/ZULEIKA HOSE and ELEVATE LEGS ABOVE LEVEL OF HEART WHILE AT REST. ENCOURAGE AMBULATION 3-5x/day INCREASING TOLERATES, WHILE AVOIDING EXTREMES IN TEMPERATURE FREQUENCY: RN TO OPEN THE PATIENT WITHIN 24 HOURS OF DISCHARGE FROM THE HOSPITAL WITH TELEHEALTH INSTALLED AT [facility], RN TO VISIT 2-3 X A WEEK FOR 4 WEEKS ESTABLISHED BY PATIENT NEEDS. LABORATORY: CBC, CMP TO BE DRAWN ON THE THIRD DAY HOME, (RAN STAT) FAX RESULTS TO [phone]. TELEHEALTH PARAMETERS: WEIGHT: NOTIFY MD OF WEIGHT GAIN OF 2 LBS IN 24 HOURS OR 5 LBS IN ONE WEEK HR: NOTIFY MD OF HR <55 BPM OR HR>100 BPM BP: NOTIFY MD IF BP <90/55 OR BP>140/100 O2 SAT: NOTIFY MD IF PO2<93% ON ROOM AIR SEND TELEHEALTH REPORT TO AUTO PARTS HANDLER AND CARDIOVASCULAR SURGEON THE FIRST WEEK OF CARE AND THEN BI-WEEKLY. PLEASE ADDITIONALLY COMMUNICATE ANY ABNORMALS AND NEW FINDINGS TO THE SURGEONS OFFICE. For any questions or concerns please call director of the biophysics facility Vera @ or Shahriar @ Discharge Disposition: HOME WITH HOME HEALTH SERVICES
[2019-11-23 16:47] VITALS: BP 108/64; PULSE 89; TEMP 98.6
[2019-11-23] MEDS ORDERED: METOPROLOL TARTRATE 25 MG TAB PO SCH (21:00)
--- NOTE | 2019-11-24 15:12 | P.PN ---
Subjective Multivessel coronary artery disease, status post four-vessel bypass grafting 11/20/2019 patient seen and evaluated in ICU; sitting up in bedside chair; POD #3, status post coronary artery bypass grafting Patient is doing well, he is awake and alert, oriented 3, he sitting up in the recliner, with a pulse ox of 93%, breathing is nonlabored, comfortable, lung sounds are clear, no rhonchi or wheezing no crackles, IV fluids have been hep- locked, Eugene catheter was discontinued yesterday, and apparently patient's havi ng some retention issues patient was started on Flomax, he required straight catheterization today. His sinus rhythm on the monitor. No acute events overnight, chest x-ray just shows atelectasis, patient will receive a dose of Lasix today. He is working on incentive spirometer, his been tolerating ambulation, his chest tubes came out yesterday, his epicardial wires have been grounded. Is receiving stool softeners. Surgical incisions are clean dry and intact. 11/21/2019 Patient is seen in follow-up in the intensive care unit. This is postoperative day #4. Status post coronary artery bypass grafting with a WALDEN to LAD, left radial artery graft to the first OM, reverse saphenous vein graft to the second OM and PDA. He is currently sitting up in a chair at the bedside. Awake and alert in no acute distress. He did have some issues with pain throughout the evening but is better controlled today. He is maintaining good O2 saturations in the 90s on room air. No IV fluids. He's been up ambulating with assistance. He continues working well with the incentive spirometer. White count 13.0. Hemoglobin 8.0. Sodium 131. Potassium 4.2. Creatinine 0.89. Remains on DuoNeb inhalations. 11/22/2019 Patient is seen in follow-up in the intensive care unit; POD #5 of a coronary artery bypass grafting surgery. He is currently sitting up in a chair at the bedside. Awake and alert in no acute distress. He is on room air. Maintaining good O2 saturations in the 90s. Chest x-ray reveals small bilateral pleural effusions. Mild right lower lobe infiltrate. Working well with the incentive spirometer. No cough or congestion. He has no IV fluids. He has no complaints. He's been up ambulating with assistance. White count 11.4. Hemoglobin 8.5. Sodium 135. Potassium 4.3. Creatinine 0.97. Magnesium 2.2. He is continued on DuoNeb inhalations, heparin for DVT prophylaxis, Protonix for GI prophylaxis. Blood sugars are improved by decreasing Levemir to 20 units Possible discharge in next 24 hours 11/23/2019 Patient is being discharged today which I believe is appropriate and I was requested to titrate his diabetic medications patient can resume his metformin patient blood sugars are still bit high I'm recommending 25 units of Lantus at nighttime this most probably need to be up titrated patient was asked to check blood sugars twice a day before breakfast and before bed. Constitutional: Denied any fatigue denied any fever. Cardio vascular: denied any chest pain, palpitations Gastrointestinal denied any nausea vomiting Pulmonary: Denied any shortness of breath cough Neurologic denied any new focal deficits All inpatient medications were reviewed and appropriate changes in these medications as dictated in the interval history and assessment and plan. Objective - Vital Signs Vital signs: Vital Signs Temp 98.6 F 11/23/19 16:00 Pulse 89 11/23/19 16:00 Resp 16 11/23/19 16:05 BP 108/64 11/23/19 16:00 Pulse Ox 96 11/23/19 16:00 Intake & Output 11/23/19 11/24/19 11/24/19 18:59 06:59 18:59 Output Total 2500 Balance -2500 Output: Urine 2500 Other: Voiding Method Indwelling Catheter ABP, PAP, CO, CI - Last Documented Arterial Blood Pressure 115/45 Pulmonary Artery Pressure 27/5 Cardiac Output 6.3 Cardiac Index 2.9 - Exam PHYSICAL EXAMINATION: GENERAL: The patient is alert and oriented x3, not in any acute distress. Well developed, well nourished. HEENT: Pupils are round and equally reacting to light. EOMI. No scleral icterus. No conjunctival pallor. Normocephalic, atraumatic. No pharyngeal erythema. No thyromegaly. CARDIOVASCULAR: S1 and S2 present. No murmurs, rubs, or gallops. PULMONARY: Chest is clear to auscultation, no wheezing or crackles. ABDOMEN: Soft, nontender, nondistended, normoactive bowel sounds. No palpable organomegaly. MUSCULOSKELETAL: No joint swelling or deformity. EXTREMITIES: No cyanosis, clubbing, or pedal edema. NEUROLOGICAL: Gross neurological examination did not reveal any focal deficits. SKIN: No rashes. - Labs CBC & Chem 7: 11/23/19 07:33 11/23/19 07:33 Assessment and Plan Plan: Multiple vessel coronary artery disease status post CABG Diabetes mellitus Hypertension Hyperlipidemia Primary osteoarthritis History of panic attack Plan: Patient is being discharged today discharge medication reconciliation was revi ewed and diabetic medications and management as mentioned above. Patient is medically stable to be discharged.
== END 2019-11-23 18:10 | disposition home health service (06) | DRG 236 ==
LOC: 2ORMAIN 06:12 → 2SICU 14:20
PROVIDERS: ADMIT Surgery; ATTEND Surgery
PROC: 06BP4ZZ Excision of Right Saphenous Vein, Percutaneous Endoscopic Approach (ICD-10-PCS; principal; 2019-11-17 08:00)
PROC: 02100Z9 Bypass Coronary Artery, One Artery from Left Internal Mammary, Open Approach (ICD-10-PCS; principal; 2019-11-17 08:00)
PROC: 5A1221Z Performance of Cardiac Output, Continuous (ICD-10-PCS; principal; 2019-11-17 08:00)
PROC: 03BC4ZZ Excision of Left Radial Artery, Percutaneous Endoscopic Approach (ICD-10-PCS; principal; 2019-11-17 08:00)
PROC: 021109W Bypass Coronary Artery, Two Arteries from Aorta with Autologous Venous Tissue, Open Approach (ICD-10-PCS; principal; 2019-11-17 08:00)
PROC: 02100AW Bypass Coronary Artery, One Artery from Aorta with Autologous Arterial Tissue, Open Approach (ICD-10-PCS; principal; 2019-11-17 08:00)
PROC: 02L70CK Occlusion of Left Atrial Appendage with Extraluminal Device, Open Approach (ICD-10-PCS; principal; 2019-11-17 08:00)
DX: I25.110 Atherosclerotic heart disease of native coronary artery with unstable angina pectoris (principal); E87.1 Hypo-osmolality and hyponatremia; D62 Acute posthemorrhagic anemia; D69.59 Other secondary thrombocytopenia; J44.9 Chronic obstructive pulmonary disease, unspecified; E11.9 Type 2 diabetes mellitus without complications; M19.91 Primary osteoarthritis, unspecified site; F17.210 Nicotine dependence, cigarettes, uncomplicated; I10 Essential (primary) hypertension; E78.5 Hyperlipidemia, unspecified; I08.1 Rheumatic disorders of both mitral and tricuspid valves; F41.0 Panic disorder [episodic paroxysmal anxiety]; E66.9 Obesity, unspecified; D72.829 Elevated white blood cell count, unspecified; R33.9 Retention of urine, unspecified; Z68.34 Body mass index [BMI] 34.0-34.9, adult; Z71.3 Dietary counseling and surveillance; Z79.82 Long term (current) use of aspirin; Z79.84 Long term (current) use of oral hypoglycemic drugs; Z79.899 Other long term (current) drug therapy; Z96.653 Presence of artificial knee joint, bilateral; Z98.890 Other specified postprocedural states; Z79.1 Long term (current) use of non-steroidal anti-inflammatories (NSAID); Z82.0 Family history of epilepsy and other diseases of the nervous system
CPT/HCPCS: 71045; 71046; 80048; 80053; 81003; 82330; 82805; 83735; 84132; 85025; 85027; 85520; 85610; 85730; 86850; 86891; 86900; 86901; 86920; 94002; 94640

== ENCOUNTER 2019-11-30 21:09 | Emergency (ER) | payer MEDICARE, OTHER ==
[2019-11-30 21:16] VITALS: RESP 18
[2019-11-30 21:55] LABS: Appearance,Urine Cloudy (Clear); Bacteria,Urine Many /hpf; Bilirubin,Urine Negative (Negative); Blood,Urine Moderate (Negative); Color,Urine Yellow; Glucose,Urine (UA) Negative (Negative); Ketones,Urine Negative (Negative); Leukocyte Esterase,Urine Large (Negative); Mucus,Urine Occasional /hpf; Nitrite,Urine Positive (Negative); Protein,Urine 1+ (Negative); RBC,Urine 47 /hpf (0-5); Specific Gravity,Urine 1.018 (1.001-1.035); Squamous Epithelial Cell,Urine <1 /hpf (0-4); Urobilinogen,Urine <2.0 mg/dL (<2.0); WBC,Urine 175 /hpf (0-5)
[2019-11-30 22:04] LABS: Calcium 8.5 mg/dL (8.4-10.2); Potassium 4.5 mmol/L (3.5-5.1)
--- NOTE | 2019-11-30 22:07 | ED ---
General Adult HPI - General Chief complaint: Urogenital Stated complaint: Urine Retention Time Seen by Provider: 11/30/19 21:19 Source: patient Mode of arrival: wheelchair Limitations: no limitations - History of Present Illness Initial comments: Dictation was produced using Angella Joy dictation software. please excuse any grammatical, word or spelling errors. This patient was cared for during a federal and state declared state of emergency secondary to Covid 19 Chief Complaint: 64-year-old male with urinary retention. History of Present Illness: 64-year-old male who presents today with urinary retention. Patient recently had CABG surgery performed in patient. He is discharged with Eugene catheter. He was instructed by urologist to remove his Eugene catheter at home. He was told that if he does not urinate in certain amount of hours to come to the emergency department. His company today with his daughter. Patient had not urinated after his Eugene was removed at home. The ROS documented in this emergency department record has been reviewed and confirmed by me. Those systems with pertinent positive or negative responses have been documented in the HPI. All other systems are other negative and/or noncontributory. PHYSICAL EXAM: General Impression: Alert and oriented x3, not in acute distress HEENT: Normocephalic atraumatic, extra-ocular movements intact, pupils equal and reactive to light bilaterally, mucous membranes moist. Cardiovascular: Heart regular rate and rhythm Chest: Able to complete full sentences, no retractions, no tachypnea Abdomen: abdomen soft, non-tender, non-distended, no organomegaly Musculoskeletal: Pulses present and equal in all extremities, no peripheral edema Motor: no focal deficits noted Neurological: CN II-XII grossly intact, no focal motor or sensory deficits noted Skin: Intact with no visualized rashes Psych: Normal affect and mood ED course: 64-year-old male presents with urinary retention signs upon arrival are within acceptable limits. Bladder scan was performed with retention of urine. Eugene catheter was placed with immediate drainage of approximately 600- 700 mL of urine. It was much better. Patient will be discharged with instructions to follow-up with urologist outpatient for urinary retention. - Related Data Home Medications Medication Instructions Recorded Confirmed metFORMIN HCL [Glucophage] 1,000 mg PO BID 11/10/19 11/17/19 Atorvastatin [Lipitor] 80 mg PO DAILY 11/11/19 11/17/19 Previous Rx's Medication Instructions Recorded Acetaminophen Tab [Tylenol] 1,000 mg PO Q6HR PRN #120 tab 11/23/19 Aspirin 325 mg PO DAILY #30 tab 11/23/19 Clopidogrel [Plavix] 75 mg PO DAILY #30 tab 11/23/19 Diltiazem Cd [Cardizem CD] 240 mg PO Q24H #30 cap.er.24h 11/23/19 Insulin Glargine,Hum.rec.anlog 25 unit SQ HS #3 pen 11/23/19 [Lantus Solostar] Losartan [Cozaar] 25 mg PO DAILY@1200 #30 tab 11/23/19 Metoprolol Tartrate [Lopressor] 75 mg PO BID #60 tab 11/23/19 Pantoprazole [Protonix] 40 mg PO AC-BRKFST #30 tablet.dr 11/23/19 Sennosides-Docusate Sodium 2 each PO HS PRN tab 11/23/19 [Senokot-S] Tamsulosin [Flomax] 0.4 mg PO PC-SUPPER #30 cap.er.24h 11/23/19 Allergies Allergy/AdvReac Type Severity Reaction Status Date / Time lactose Allergy Diarrhea Verified 11/30/19 21:16 Review of Systems ROS Statement: Those systems with pertinent positive or pertinent negative responses have been documented in the HPI. ROS Other: All systems not noted in ROS Statement are negative. Past Medical History Past Medical History: Chest Pain / Angina, Diabetes Mellitus, Hyperlipidemia, Hypertension, Osteoarthritis (OA) Additional Past Medical History / Comment(s): panic attack History of Any Multi-Drug Resistant Organisms: None Reported Past Surgical History: Coronary Bypass/CABG, Hernia Repair, Joint Replacement Additional Past Surgical History / Comment(s): hemorrhoidectomy, rosa knee replacements Past Anesthesia/Blood Transfusion Reactions: No Reported Reaction Additional Past Anesthesia/Blood Transfusion Reaction / Comment(s): no hx blood transfusion Past Psychological History: Anxiety Smoking Status: Never smoker Past Alcohol Use History: Rare Past Drug Use History: None Reported - Past Family History Mother Family Medical History: Neurologic Disorder Father Additional Family Medical History / Comment(s): Father from a work- related injury. General Exam Limitations: no limitations Course Vital Signs 11/30/19 21:11 Temperature 98.0 F Pulse Rate 90 Respiratory 18 Rate Blood Pressure 107/65 O2 Sat by Pulse 97 Oximetry Medical Decision Making - Lab Data Result diagrams: 11/30/19 21:42 Lab Results 11/30/19 11/30/19 Range/Units 21:35 21:42 Sodium 137 (137-145) mmol/L Potassium 4.5 (3.5-5.1) mmol/L Chloride 107 (98-107) mmol/L Carbon Dioxide 22 (22-30) mmol/L Anion Gap 8 mmol/L BUN 18 (9-20) mg/dL Creatinine 1.14 (0.66-1.25) mg/dL Est GFR (CKD-EPI)AfAm 79 (>60 ml/min/1.73 sqM) Est GFR (CKD-EPI)NonAf 68 (>60 ml/min/1.73 sqM) Glucose 103 H (74-99) mg/dL Calcium 8.5 (8.4-10.2) mg/dL Urine Color Yellow Urine Appearance Cloudy (Clear) Urine pH 7.0 (5.0-8.0) Ur Specific Wisner 1.018 (1.001-1.035) Urine Protein 1+ H (Negative) Urine Glucose (UA) Negative (Negative) Urine Ketones Negative (Negative) Urine Blood Moderate H (Negative) Urine Nitrite Positive (Negative) Urine Bilirubin Negative (Negative) Urine Urobilinogen <2.0 (<2.0) mg/dL Ur Leukocyte Esterase Large H (Negative) Urine RBC 47 H (0-5) /hpf Urine WBC 175 H (0-5) /hpf Urine WBC Clumps Moderate H (None) /hpf Ur Squamous Epith Cells <1 (0-4) /hpf Urine Bacteria Many H (None) /hpf Urine Mucus Occasional H (None) /hpf Disposition Clinical Impression: Urinary retention Disposition: HOME SELF-CARE Condition: Good Instructions (If sedation given, give patient instructions): Urinary Retention in Men (ED) Is patient prescribed a controlled substance at d/c from ED?: No Referrals: Elfego Scott MD [STAFF PHYSICIAN] - 1-2 days Time of Disposition: 22:06
[2019-11-30 22:28] VITALS: BP 144/74; PULSE 77; TEMP 98
== END 2019-11-30 22:28 | disposition home or self-care (01) ==
LOC: EC 21:09
DX: R33.9 Retention of urine, unspecified (principal); E11.9 Type 2 diabetes mellitus without complications; E78.5 Hyperlipidemia, unspecified; I10 Essential (primary) hypertension; Z79.84 Long term (current) use of oral hypoglycemic drugs; Z79.899 Other long term (current) drug therapy; Z91.048 Other nonmedicinal substance allergy status; Z95.1 Presence of aortocoronary bypass graft; Z96.653 Presence of artificial knee joint, bilateral
CPT/HCPCS: 36415; 51702; 80048; 81001; 99283

== ENCOUNTER → 2020-05-31 | Outpatient (CLI) | payer MEDICARE, OTHER ==
--- NOTE | 2020-05-31 12:50 | US ---
EXAMINATION TYPE: US abdomen limited DATE OF EXAM: 05/31/2020 COMPARISON: Correlation to patient's prior CT chest of 11/11/2019 CLINICAL HISTORY: 64-year-old male R22.1 mass vs hernia. Patient status post cardiac surgery with med rafal sternotomy. Infra sternal bulging during straining. TECHNIQUE: Assess for hernia at location of: Epigastric/infrasternal midline. Real-time scanning w as performed by the shoe repairer utilizing Valsalva and additional dynamic maneuvers to assess for her gilda. FINDINGS: There is a visual bulge that occurs directly inferior to the patient's median sternotomy. Occurring 1 to 2 cm below the xiphoid, there is herniation of intra-abdominal fat with the hernia sac measuring 3.3 cm wide and 4.5 cm craniocaudal that becomes apparent with Valsalva maneuver. IMPRESSION: Epigastric/infrasternal midline fat-containing ventral abdominal wall hernia measuring 4.5 x 3.3 cm t hat becomes apparent with Valsalva maneuver. This is located 1 to 2 cm below the xiphoid.
== END | disposition home or self-care (01) ==
LOC: RADUSWWP 07:40
PROVIDERS: ATTEND Internal Medicine
DX: K43.9 Ventral hernia without obstruction or gangrene (principal)
CPT/HCPCS: 76705

== ENCOUNTER → 2020-06-21 | Outpatient (CLI) | payer MEDICARE, OTHER ==
[2020-06-21 16:11] LABS: Basophils # (A) 0.1 k/uL (0-0.2); Basophils % (A) 1 %; Eosinophils # (A) 0.2 k/uL (0-0.7); Eosinophils % (A) 2 %; HCT 39.8 % (39.0-53.0); HGB 12.8 gm/dL (13.0-17.5); Lymphocytes # (A) 2.1 k/uL (1.0-4.8); Lymphocytes % (A) 29 %; MCH 28.1 pg (25.0-35.0); MCV 87.6 fL (80.0-100.0); Mean Platelet Volume 8.4; Monocytes # (A) 0.4 k/uL (0-1.0); Monocytes % (A) 5 %; Neutrophils # (A) 4.4 k/uL (1.3-7.7); Neutrophils % (A) 62 %; Platelet Count 242 k/uL (150-450); RBC 4.55 m/uL (4.30-5.90); RDW 15.8 % (11.5-15.5); WBC 7.2 k/uL (3.8-10.6)
== END | disposition home or self-care (01) ==
LOC: LABPAT 14:51
PROVIDERS: ATTEND Surgery
DX: Z01.812 Encounter for preprocedural laboratory examination (principal); K43.0 Incisional hernia with obstruction, without gangrene
CPT/HCPCS: 36415; 85025

== ENCOUNTER → 2020-06-24 | Outpatient (CLI) | payer MEDICARE, OTHER | END | disposition home or self-care (01) | LOC: LABPAT 12:49 | PROVIDERS: ATTEND Surgery | DX: Z53.9 Procedure and treatment not carried out, unspecified reason (principal) | CPT/HCPCS: 36415; 86850; 86900; 86901 ==

== ENCOUNTER → 2020-09-02 | Outpatient (CLI) | payer MEDICARE, OTHER ==
[2020-09-02 15:24] LABS: HCT 41.3 % (39.0-53.0); HGB 13.9 gm/dL (13.0-17.5); MCH 29.3 pg (25.0-35.0); MCHC 33.6 g/dL (31.0-37.0); MCV 87.2 fL (80.0-100.0); Mean Platelet Volume 8.2; Platelet Count 247 k/uL (150-450); RBC 4.74 m/uL (4.30-5.90); WBC 8.3 k/uL (3.8-10.6)
== END | disposition home or self-care (01) ==
LOC: LABPAT 15:01
PROVIDERS: ATTEND Surgery
DX: Z01.812 Encounter for preprocedural laboratory examination (principal); K46.9 Unspecified abdominal hernia without obstruction or gangrene
CPT/HCPCS: 36415; 85027

== ENCOUNTER 2020-09-06 06:04 | Day surgery (SDC) | payer MEDICARE, OTHER ==
[2020-09-02 14:51] VITALS: BMI 31.6
[~2020-09-06 06:04] MED LIST changes: +ACETAMINOPHEN TAB 500 MG TAB PO PRN; -ALBUMIN HUMAN 25% 50 ML IV ONE; -ALBUMIN HUMAN 5% 500 ML IVPB ONE; -ASPIRIN 325 MG TAB PO ONE; -ATORVASTATIN 10 MG TAB PO ONE; -CALCIUM CHLORIDE 100 MG/ML 10 ML SYRINGE IV ONE; -CHLORHEXIDINE GLUCONATE 15 ML CUP MUCOUS MEM ONE; +DEXAMETHASONE SOD PHOSPHATE 4 MG/ML 1 ML VIAL IV ONE; -DEXTROSE 5% IN WATER 1,000 ML with POTASSIUM CHLORIDE 110 MEQ, MAGNESIUM SULFATE 16 MEQ... IV ONE; -DEXTROSE 5% IN WATER 1,000 ML with POTASSIUM CHLORIDE 25 MEQ, SODIUM CHLORIDE 2.5MEQ/ML... IRRIGATION ONE; -DILTIAZEM 125 MG in SODIUM CHLORIDE 0.9% 100 ML IV ONE; -HEPARIN SODIUM 1,000 UN/ML (10ML VL) IV ONE; -HEPARIN SODIUM,PORCINE 5,000 UNIT in SODIUM CHLORIDE 0.9% 500 ML 500 ML IV ONE; +HEPARIN SODIUM,PORCINE/PF 5,000 UNIT/0.5 ML SYRINGE SQ PRN; -INSULIN REGULAR 100 UNIT in SODIUM CHLORIDE 0.9% 100 ML IV ONE; -LACTATED RINGERS 1,000 ML IV ONE; +LACTATED RINGERS 1,000 ML IV SCH; -MAGNESIUM SULFATE MG 500 MG/ML IV ONE; -MANNITOL 25% 12.5 GM/50 ML VIAL IV ONE; -METOPROLOL TARTRATE 12.5 MG TAB PO ONE; -NITROGLYCERIN-D5W PMX 25 MG/250 ML BTL IV ONE; -NITROGLYCERIN-D5W PMX 50 MG in DEXTROSE/WATER 1 250ML.BAG IV ONE; -NOREPINEPHRINE 4 MG in SODIUM CHLORIDE 0.9% 250 ML IV ONE; +ONDANSETRON 4 MG/2 ML VIAL IVP ONE; -PAPAVERINE 360 MG in SODIUM CHLORIDE 0.9% 90 ML IV ONE; -PHENYLEPHRINE 10 MG/ML VIAL IV ONE; -PHENYLEPHRINE 40 MG in SODIUM CHLORIDE 0.9% 250 ML IV ONE; -PROTAMINE SULFATE 10 MG/ML 25 ML VIAL IV ONE; -PROTAMINE SULFATE 250 MG in EMPTY BAG 1 BAG IV ONE; +SCOPOLAMINE 1.5MG/72HR PATCH TRANSDERM ONE; -SODIUM BICARB 8.4% 50 ML SYR (1 MEQ/ML) IV ONE; -SODIUM CHLORIDE 0.9% 1,000 ML IV ONE; -TRANEXAMIC ACID 2,000 MG in SODIUM CHLORIDE 0.9% 80 ML IV ONE; -VANCOMYCIN 1,000 MG VIAL MISCELLANE ONE; -ceFAZolin 1,000 MG in SODIUM CHLORIDE 0.9% IRRIGATIO 1,000 ML IRRIGATION ONE; -ceFAZolin 2,000 MG in SODIUM CHLORIDE 0.9% 30 ML IVPB ONE; -propofoL 1,000 MG/100 ML VIAL IV ONE
[2020-09-06 06:44] LABS: Glucose,Whole Blood 251 mg/dL (75-99)
[2020-09-06] MEDS ORDERED: LIDOCAINE 1% (10MG/ML) FOR IV START INTRADERMA ONE (06:48)
[2020-09-06] MEDS ORDERED: INSULIN ASPART (NovoLOG) 100 UNIT/ML VIAL SQ ONE (06:49)
[2020-09-06] MEDS ORDERED: MIDAZOLAM 2 MG/2 ML VIAL IV PRN (07:00)
[2020-09-06] MEDS ORDERED: ROCURONIUM 10 MG/ML (5 ML VIAL) IV ONE (07:48)
[2020-09-06] MEDS ORDERED: NEOSTIGMINE 1 MG/ML 10 ML VIAL ONE (07:48)
[2020-09-06] MEDS ORDERED: fentaNYL (PF) 50 MCG/ML 2 ML AMP ONE (07:48)
[2020-09-06] MEDS ORDERED: LIDOCAINE 1% INJ 10MG/ML (20 ML MDV) ONE (07:48)
[2020-09-06] MEDS ORDERED: PROPOFOL 10 MG/ML 20 ML VIAL IV ONE (07:48)
[2020-09-06] MEDS ORDERED: SUCCINYLCHOLINE CHLORIDE 100 MG/5 ML SYR IV ONE (07:48)
[2020-09-06] MEDS ORDERED: GLYCOPYRROLATE 0.2 MG/ML 2 ML VIAL ONE (07:48)
[2020-09-06] MEDS ORDERED: HYDROmorphone (PF) 1 MG/ML ONE (07:48)
[2020-09-06] MEDS ORDERED: MIDAZOLAM 2 MG/2 ML VIAL ONE (07:48)
[2020-09-06] MEDS ORDERED: KETOROLAC 15 MG/ML 1 ML VIAL ONE (07:48)
--- NOTE | 2020-09-06 07:52 | P.GSHP ---
History of Present Illness H&P Date: 09/06/20 Chief Complaint: Incisional hernia This 64-year-old male who has developed an epigastric incisional hernia after cardiac surgery. Patient rents today for laparoscopic robotic-assisted repair. Past Medical History Past Medical History: Chest Pain / Angina, Diabetes Mellitus, Hyperlipidemia, Hypertension, Osteoarthritis (OA) Additional Past Medical History / Comment(s): panic attack History of Any Multi-Drug Resistant Organisms: None Reported Past Surgical History: Coronary Bypass/CABG, Hernia Repair, Joint Replacement Additional Past Surgical History / Comment(s): hemorrhoidectomy, rosa knee replacements Past Anesthesia/Blood Transfusion Reactions: No Reported Reaction Additional Past Anesthesia/Blood Transfusion Reaction / Comment(s): no hx blood transfusion Smoking Status: Current every day smoker - Past Family History Mother Family Medical History: Neurologic Disorder Father Additional Family Medical History / Comment(s): Father from a work-related injury. Medications and Allergies Home Medications Medication Instructions Recorded Confirmed Type metFORMIN HCL [Glucophage] 500 mg PO BID 11/10/19 09/06/20 History Metoprolol Succinate (ER) [Toprol 25 mg PO QAM 07/01/20 09/06/20 History Xl] Aspirin [Adult Low Dose Aspirin EC] 81 mg PO DAILY 09/02/20 09/06/20 History Isosorbide Mononitrate [Isosorbide 30 mg PO DAILY 09/02/20 09/06/20 History Mononitrate ER] Losartan [Cozaar] 25 mg PO DAILY 09/02/20 09/06/20 History Magnesium 250 mg PO W/LUNCH 09/02/20 09/06/20 History Allergies Allergy/AdvReac Type Severity Reaction Status Date / Time lactose Allergy Diarrhea Verified 09/06/20 06:33 Milk Containing Products Allergy Dyspnea Verified 09/06/20 06:33 [Dairy] Surgical - Exam Vital Signs Temp Pulse Resp BP Pulse Ox 97 F L 100 16 139/77 93 L 09/06/20 06:33 09/06/20 06:33 09/06/20 06:33 09/06/20 06:33 09/06/20 06:33 - General well developed, well nourished, no distress - Eyes PERRL - ENT normal pinna - Neck no masses - Respiratory normal expansion - Cardiovascular Rhythm: regular - Abdomen Abdomen: soft, non tender Hernia: incisional (Epigastric) Results - Labs Abnormal Lab Results - Last 24 Hours (Table) 09/06/20 Range/Units 06:42 POC Glucose (mg/dL) 251 H (75-99) mg/dL Assessment and Plan Assessment: Incisional hernia. We'll perform laparoscopic robotic spelled repair.
[2020-09-06] MEDS ORDERED: BUPIVACAINE (PF) 0.25% 30 ML VIAL SQ ONE (08:14)
--- NOTE | 2020-09-06 09:25 | P.OP ---
Date of Procedure: 09/06/20 Preoperative Diagnosis: Incisional hernia Postoperative Diagnosis: Incisional hernia Procedure(s) Performed: Laparoscopic robotic-assisted repair of incisional hernia Partial omentectomy Anesthesia: DARLINE Surgeon: Brandon Leggett Estimated Blood Loss (ml): 5 Pathology: other (Omentum) Condition: stable Disposition: PACU Description of Procedure: The patient was placed on the operating table in the supine position. He received general anesthesia. His abdomen was prepped and draped usual fashion. Using a 5 mm optical trocar under direct visualization the peritoneal cavity was entered in the left upper quadrant. The abdomen was then insufflated. The laparoscope was placed back into the perineal cavity. Next a 8 mm robotic trocar was placed in the left lower quadrant and a 12 mm robotic trocar was placed in the left lateral position. The original 5 mm trocar was exchanged for a 8 mm robotic trocar. The patient's placed in the left side up position. And the patient was docked to the robot. The incisional hernia was visualized. Using hook cautery the peritoneum over the incisional hernia was excised. The incarcerated omentum was dissected free and sent to pathology. The fascial opening was repaired using 0V LOC suture. Next a piece of 11 cm round ventral light ST mesh was placed into the. Cavity and secured with 2 OV lock suture. The patient was undocked the robot. The needles were retrieved. The fascia of the 12 mm trocar site was closed with 0 Ethibond suture. Skin was closed interrupted 3-0 Monocryl suture. Dermabond dressings was applied. Patient tolerated procedure well and was sent to recovery room stable condition.
[2020-09-06 09:35] VITALS: TEMP 98.1
[2020-09-06] MEDS: HYDROmorphone 0.5 MG/0.5 ML SYRINGE IVP PRN ×2 (10:06→10:25)
[2020-09-06] MEDS ORDERED: LACTATED RINGERS 1,000 ML IV ONE (10:17)
[2020-09-06 11:08] VITALS: RESP 16
[2020-09-06 14:58] VITALS: BP 137/76; PULSE 93
== END 2020-09-06 15:29 | disposition home or self-care (01) ==
LOC: OR 06:04
PROVIDERS: ATTEND Surgery
DX: K43.2 Incisional hernia without obstruction or gangrene (principal); E78.5 Hyperlipidemia, unspecified; E11.9 Type 2 diabetes mellitus without complications; Z79.84 Long term (current) use of oral hypoglycemic drugs; I10 Essential (primary) hypertension; I25.2 Old myocardial infarction; F17.210 Nicotine dependence, cigarettes, uncomplicated; F41.0 Panic disorder [episodic paroxysmal anxiety]; Z79.899 Other long term (current) drug therapy; Z95.1 Presence of aortocoronary bypass graft
CPT/HCPCS: 49654; S2900; 88302

== ENCOUNTER 2022-02-17 20:09 | Emergency (ER) | payer MEDICARE, OTHER ==
[2022-02-17 20:34] VITALS: TEMP 98
[2022-02-17] MEDS ORDERED: SODIUM CHLORIDE 0.9% 500 ML 500 ML IV STA (21:03)
[2022-02-17] MEDS ORDERED: SODIUM CHLORIDE 0.9% 1,000 ML IV STA (21:03)
--- NOTE | 2022-02-17 21:11 | ED ---
General Adult HPI - General Chief complaint: Syncope Stated complaint: Syncope Time Seen by Provider: 02/17/22 20:53 Source: patient, family (daughters), RN notes reviewed, old records reviewed Mode of arrival: EMS Limitations: no limitations - History of Present Illness Initial comments: non toxic appearing 66-year-old male presents to the emergency room with his two daughters. Daughters state that patient was partying and smoking marijuana and also ate edibles and marijuana brownies. He denies any alcohol use. States that he started to feel nauseated and went to the bathroom to vomit. Friends state he came out of bathroom after vomiting and had syncopal episode that was witnessed. They state he did not hit his head. No seizure activity. He denies any pain or discomfort and is alert and oriented. Patient states he has "cotton mouth" and is tired. Patient history diabetes, HTN, anxiety, cabg 2020. -: hour(s) Associated Symptoms: malaise, nausea/vomiting Treatments Prior to Arrival: none - Related Data Home Medications Medication Instructions Recorded Confirmed metFORMIN HCL [Glucophage] 500 mg PO BID 11/10/19 09/06/20 Metoprolol Succinate (ER) [Toprol 25 mg PO QAM 07/01/20 09/06/20 Xl] Aspirin [Adult Low Dose Aspirin EC] 81 mg PO DAILY 09/02/20 09/06/20 Isosorbide Mononitrate [Isosorbide 30 mg PO DAILY 09/02/20 09/06/20 Mononitrate ER] Losartan [Cozaar] 25 mg PO DAILY 09/02/20 09/06/20 Magnesium 250 mg PO W/LUNCH 09/02/20 09/06/20 Previous Rx's Medication Instructions Recorded Acetaminophen Tab [Tylenol] 650 mg PO Q6H #30 tab 09/06/20 Docusate [Colace] 100 mg PO BID #20 capsule 09/06/20 Ibuprofen [Motrin] 600 mg PO Q6HR PRN #40 tab 09/06/20 oxyCODONE HCL [OxyIR] 5 mg PO Q6H PRN 3 Days #10 tab 09/06/20 Allergies Allergy/AdvReac Type Severity Reaction Status Date / Time lactose Allergy Diarrhea Verified 09/06/20 06:33 Milk Containing Products Allergy Dyspnea Verified 09/06/20 06:33 [Dairy] Review of Systems ROS Statement: Those systems with pertinent positive or pertinent negative responses have been documented in the HPI. ROS Other: All systems not noted in ROS Statement are negative. Past Medical History Past Medical History: Chest Pain / Angina, Diabetes Mellitus, Hyperlipidemia, Hypertension, Osteoarthritis (OA) Additional Past Medical History / Comment(s): panic attack History of Any Multi-Drug Resistant Organisms: None Reported Past Surgical History: Coronary Bypass/CABG, Heart Catheterization With Stent, Hernia Repair, Joint Replacement Additional Past Surgical History / Comment(s): hemorrhoidectomy, rosa knee replacements Past Anesthesia/Blood Transfusion Reactions: No Reported Reaction Additional Past Anesthesia/Blood Transfusion Reaction / Comment(s): no hx blood transfusion Past Psychological History: Anxiety Smoking Status: Current every day smoker - Past Family History Mother Family Medical History: Neurologic Disorder Father Additional Family Medical History / Comment(s): Father from a work- related injury. General Exam Limitations: no limitations General appearance: alert, in no apparent distress Head exam: Present: atraumatic, normocephalic, normal inspection Eye exam: Present: PERRL, EOMI. Absent: scleral icterus, conjunctival injection, periorbital swelling, periorbital tenderness ENT exam: Present: mucous membranes dry Neck exam: Absent: tenderness, meningismus, lymphadenopathy Respiratory exam: Absent: respiratory distress, accessory muscle use Cardiovascular Exam: Present: regular rate GI/Abdominal exam: Present: soft. Absent: distended, tenderness, rigid Extremities exam: Present: normal capillary refill. Absent: pedal edema, calf tenderness Neurological exam: Present: alert, oriented X3, CN II-XII intact Expanded Patient oriented to: Present: person, place, time Speech: Present: fluid speech Cranial nerves: EOM's Intact: Normal, Gag Reflex: Normal, Tongue Deviation: Normal Cerebellar function: Heel to [place]: Normal Motor strength exam: RUE: 5, LUE: 5, RLE: 5, LLE: 5 Eye Response: (4) open spontaneously Motor Response: (6) obeys commands Verbal Response: (5) oriented Mel Total: 15 Psychiatric exam: Present: normal affect, normal mood Skin exam: Present: warm, dry, normal color. Absent: rash, cyanosis, diaphoretic, petechiae, pallor, mottled Course Vital Signs 02/17/22 02/17/22 20:25 21:30 Temperature 98 F Pulse Rate 86 100 Respiratory 16 20 Rate Blood Pressure 146/88 164/109 O2 Sat by Pulse 98 99 Oximetry EKG Findings - EKG Results: EKG: sinus rhythm EKG shows: tachycardia (Ventricular rate 114, NM interval 0.154, QRS 0.92, QTC 0.384; normal axis; no significant change compared to old 06/21/2020) Medical Decision Making - Medical Decision Making Patient was given IV fluids This is a mild leukocytosis likely due to patient's vomiting. Blood glucose level elevated at 223, however patient states he has not been adherent to his metformin dosing. EKG shows sinus rhythm with no acute changes. Urinalysis shows no evidence of infection. Patient's is back to his normal self per family. Syncope was likely vasovagal from vomiting. Reaction to ingesting marijuana brownies, marijuana gummies and smoking marijuana tonight. Patient and family directed to follow up with primary care doctor this week and return to the emergency room with no concerning symptoms. Instructed to stop using marijuana. Patient and family are agreeable to this plan of care. Case discussed with Dr. Prasad - Lab Data Result diagrams: 02/17/22 21:44 02/17/22 21:44 Lab Results 02/17/22 02/17/22 02/17/22 Range/Units 21:44 21:44 21:44 WBC 14.4 H (3.8-10.6) k/uL RBC 4.77 (4.30-5.90) m/uL Hgb 14.7 (13.0-17.5) gm/dL Hct 43.1 (39.0-53.0) % MCV 90.2 (80.0-100.0) fL MCH 30.8 (25.0-35.0) pg MCHC 34.2 (31.0-37.0) g/dL RDW 14.2 (11.5-15.5) % Plt Count 238 (150-450) k/uL MPV 8.9 Neutrophils % 87 % Lymphocytes % 8 % Monocytes % 4 % Eosinophils % 0 % Basophils % 0 % Neutrophils # 12.5 H (1.3-7.7) k/uL Lymphocytes # 1.2 (1.0-4.8) k/uL Monocytes # 0.5 (0-1.0) k/uL Eosinophils # 0.1 (0-0.7) k/uL Basophils # 0.1 (0-0.2) k/uL Sodium 140 (137-145) mmol/L Potassium 4.5 (3.5-5.1) mmol/L Chloride 104 (98-107) mmol/L Carbon Dioxide 26 (22-30) mmol/L Anion Gap 10 mmol/L BUN 16 (9-20) mg/dL Creatinine 0.72 (0.66-1.25) mg/dL Est GFR (CKD-EPI)AfAm >90 (>60 ml/min/1.73 sqM) Est GFR (CKD-EPI)NonAf >90 (>60 ml/min/1.73 sqM) Glucose 255 H (74-99) mg/dL POC Glucose (mg/dL) (70-110) mg/dL POC Glu Preform Machine Operator ID Calcium 8.7 (8.4-10.2) mg/dL Magnesium 1.7 (1.6-2.3) mg/dL Total Bilirubin 0.4 (0.2-1.3) mg/dL AST 24 (17-59) U/L ALT 21 (4-49) U/L Alkaline Phosphatase 119 (38-126) U/L Troponin I <0.012 (0.000-0.034) ng/mL Total Protein 7.4 (6.3-8.2) g/dL Albumin 4.6 (3.5-5.0) g/dL Urine Color Urine Appearance (Clear) Urine pH (5.0-8.0) Ur Specific [place] (1.001-1.035) Urine Protein (Negative) Urine Glucose (UA) (Negative) Urine Ketones (Negative) Urine Blood (Negative) Urine Nitrite (Negative) Urine Bilirubin (Negative) Urine Urobilinogen (<2.0) mg/dL Ur Leukocyte Esterase (Negative) 02/17/22 02/17/22 Range/Units 22:23 23:18 WBC (3.8-10.6) k/uL RBC (4.30-5.90) m/uL Hgb (13.0-17.5) gm/dL Hct (39.0-53.0) % MCV (80.0-100.0) fL MCH (25.0-35.0) pg MCHC (31.0-37.0) g/dL RDW (11.5-15.5) % Plt Count (150-450) k/uL MPV Neutrophils % % Lymphocytes % % Monocytes % % Eosinophils % % Basophils % % Neutrophils # (1.3-7.7) k/uL Lymphocytes # (1.0-4.8) k/uL Monocytes # (0-1.0) k/uL Eosinophils # (0-0.7) k/uL Basophils # (0-0.2) k/uL Sodium (137-145) mmol/L Potassium (3.5-5.1) mmol/L Chloride (98-107) mmol/L Carbon Dioxide (22-30) mmol/L Anion Gap mmol/L BUN (9-20) mg/dL Creatinine (0.66-1.25) mg/dL Est GFR (CKD-EPI)AfAm (>60 ml/min/1.73 sqM) Est GFR (CKD-EPI)NonAf (>60 ml/min/1.73 sqM) Glucose (74-99) mg/dL POC Glucose (mg/dL) 223 H (70-110) mg/dL POC Glu Preform Machine Operator ID Roz Nichols Calcium (8.4-10.2) mg/dL Magnesium (1.6-2.3) mg/dL Total Bilirubin (0.2-1.3) mg/dL AST (17-59) U/L ALT (4-49) U/L Alkaline Phosphatase (38-126) U/L Troponin I (0.000-0.034) ng/mL Total Protein (6.3-8.2) g/dL Albumin (3.5-5.0) g/dL Urine Color Yellow Urine Appearance Clear (Clear) Urine pH 6.0 (5.0-8.0) Ur Specific [place] 1.028 (1.001-1.035) Urine Protein Trace H (Negative) Urine Glucose (UA) 4+ H (Negative) Urine Ketones Negative (Negative) Urine Blood Negative (Negative) Urine Nitrite Negative (Negative) Urine Bilirubin Negative (Negative) Urine Urobilinogen <2.0 (<2.0) mg/dL Ur Leukocyte Esterase Negative (Negative) Disposition Clinical Impression: Syncope, Marijuana use, episodic, Adverse drug reaction, Nausea & vomiting Disposition: HOME SELF-CARE Condition: Good Instructions (If sedation given, give patient instructions): Adverse Drug Reaction (ED), Syncope (ED) Additional Instructions: Increase your fluid intake. Stop using marijuana. Take your metformin as prescribed. Follow-up with your primary care doctor next week. Return to the emergency room with any new or concerning symptoms. Is patient prescribed a controlled substance at d/c from ED?: No Referrals: Maribel Villanueva MD [Primary Care Provider] - 1-2 days Time of Disposition: 00:16
[2022-02-17 22:11] LABS: Basophils # (A) 0.1 k/uL (0-0.2); Basophils % (A) 0 %; Eosinophils # (A) 0.1 k/uL (0-0.7); Eosinophils % (A) 0 %; HCT 43.1 % (39.0-53.0); HGB 14.7 gm/dL (13.0-17.5); Lymphocytes # (A) 1.2 k/uL (1.0-4.8); Lymphocytes % (A) 8 %; MCH 30.8 pg (25.0-35.0); MCHC 34.2 g/dL (31.0-37.0); MCV 90.2 fL (80.0-100.0); Mean Platelet Volume 8.9; Monocytes # (A) 0.5 k/uL (0-1.0); Monocytes % (A) 4 %; Neutrophils # (A) 12.5 k/uL (1.3-7.7); Neutrophils % (A) 87 %; Platelet Count 238 k/uL (150-450); RBC 4.77 m/uL (4.30-5.90); RDW 14.2 % (11.5-15.5); WBC 14.4 k/uL (3.8-10.6)
[2022-02-17 22:27] LABS: Glucose,Whole Blood 223 mg/dL (70-110)
[2022-02-17 22:31] LABS: ALT 21 U/L (4-49); AST 24 U/L (17-59); African American GFR (CKD) >90 (>60 ml/min/1.73 sqM); Albumin 4.6 g/dL (3.5-5.0); Alkaline Phosphatase 119 U/L (38-126); Anion Gap 10 mmol/L; Blood Urea Nitrogen 16 mg/dL (9-20); Calcium 8.7 mg/dL (8.4-10.2); Carbon Dioxide 26 mmol/L (22-30); Chloride 104 mmol/L (98-107); Glucose 255 mg/dL (74-99); Magnesium 1.7 mg/dL (1.6-2.3); Non-African American GFR(CKD) >90 (>60 ml/min/1.73 sqM); Potassium 4.5 mmol/L (3.5-5.1); Sodium 140 mmol/L (137-145); Total Bilirubin 0.4 mg/dL (0.2-1.3); Total Protein 7.4 g/dL (6.3-8.2)
--- NOTE | 2022-02-17 23:38 | CT ---
EXAMINATION TYPE: CT brain wo con DATE OF EXAM: 02/17/2022 COMPARISON: None HISTORY: syncope CT DLP: 1192.4 mGycm Automated exposure control for dose reduction was used. Images of the brain obtained with no contrast. There is some cerebral cortical atrophy. There is no mass effect or midline shift. No sign of intracr anial hemorrhage. Calvarium is intact. There is normal aeration of the mastoid sinuses. The skull bas e is intact. Sella turcica appears normal. IMPRESSION: Mild atrophy. No acute intracranial abnormality.
--- NOTE | 2022-02-17 23:47 | XR ---
EXAMINATION TYPE: XR chest 2V DATE OF EXAM: 02/17/2022 COMPARISON: 12/11/2019 HISTORY: Syncope TECHNIQUE: FINDINGS: Heart is normal. Lungs are clear of infiltrate. No heart failure. There are no hilar masses . There are chest leads. IMPRESSION: No active cardiopulmonary disease. Normal heart. There is clearing of the small pleural e ffusions compared to the old exam.
[2022-02-17 23:51] LABS: Appearance,Urine Clear (Clear); Bilirubin,Urine Negative (Negative); Blood,Urine Negative (Negative); Color,Urine Yellow; Glucose,Urine (UA) 4+ (Negative); Ketones,Urine Negative (Negative); Leukocyte Esterase,Urine Negative (Negative); Nitrite,Urine Negative (Negative); Protein,Urine Trace (Negative); Specific Gravity,Urine 1.028 (1.001-1.035); Urobilinogen,Urine <2.0 mg/dL (<2.0)
[2022-02-18 00:33] LABS: Amphetamine Screen,Urine Not Detected (NotDetected); Barbiturate Screen,Urine Not Detected (NotDetected); Benzodiazepines Screen,Urine Not Detected (NotDetected); Cocaine Screen,Urine Not Detected (NotDetected); Methadone Screen, Urine Not Detected (NotDetected); Opiate Screen,Urine Not Detected (NotDetected); Oxycodone Screen, Urine Not Detected (NotDetected); Phencyclidine Screen,Urine Not Detected (NotDetected); Tricyclic Antidepressant,Urine Not Detected (NotDetected); Urn Cannabinoid Scrn Detected (NotDetected)
[2022-02-18 00:46] VITALS: BP 164/84; PULSE 105; RESP 18
== END 2022-02-18 00:47 | disposition home or self-care (01) ==
LOC: EC 20:09
DX: R55 Syncope and collapse (principal); T40.715A Adverse effect of cannabis, initial encounter; F12.90 Cannabis use, unspecified, uncomplicated; R11.2 Nausea with vomiting, unspecified; E11.9 Type 2 diabetes mellitus without complications; E78.5 Hyperlipidemia, unspecified; I10 Essential (primary) hypertension; M19.90 Unspecified osteoarthritis, unspecified site; F41.9 Anxiety disorder, unspecified; F17.200 Nicotine dependence, unspecified, uncomplicated; Z91.011 Allergy to milk products; Z79.84 Long term (current) use of oral hypoglycemic drugs; Z79.82 Long term (current) use of aspirin; Z79.899 Other long term (current) drug therapy
CPT/HCPCS: 36415; 70450; 71046; 80053; 80306; 81003; 83735; 84484; 85025; 93005; 99285

== ENCOUNTER 2023-01-18 15:49 | Emergency (ER) | payer MEDICARE, OTHER ==
--- NOTE | 2023-01-18 17:11 | ED ---
Male Urogenital HPI - General Chief complaint: Urogenital Stated complaint: Blood in Cath Bag Time Seen by Provider: 01/18/23 16:57 Source: patient, RN notes reviewed Mode of arrival: ambulatory Limitations: no limitations - History of Present Illness Initial comments: Patient is a 67-year-old male presented ER with chief complaint of catheter issues. Patient states he had a bladder procedure done by Dr. Qureshi on Saturday. Patient states that he has had a catheter since. He reports that he saw Dr. Qureshi yesterday and his catheter was changed. His next appointment is on Saturday. Patient states that he has noticed blood clots in his catheter bag and it is not draining as much. Patient also endorses a suprapubic pressure stating that he feels like his bladder is not emptying. Patient denies any fevers, chills, night sweats. - Related Data Home Medications Medication Instructions Recorded Confirmed metFORMIN HCL [Glucophage] 500 mg PO BID 11/10/19 09/06/20 Metoprolol Succinate (ER) [Toprol 25 mg PO QAM 07/01/20 09/06/20 Xl] Aspirin [Adult Low Dose Aspirin EC] 81 mg PO DAILY 09/02/20 09/06/20 Isosorbide Mononitrate [Isosorbide 30 mg PO DAILY 09/02/20 09/06/20 Mononitrate ER] Losartan [Cozaar] 25 mg PO DAILY 09/02/20 09/06/20 Magnesium 250 mg PO W/LUNCH 09/02/20 09/06/20 Previous Rx's Medication Instructions Recorded Acetaminophen Tab [Tylenol] 650 mg PO Q6H #30 tab 09/06/20 Docusate [Colace] 100 mg PO BID #20 capsule 09/06/20 Ibuprofen [Motrin] 600 mg PO Q6HR PRN #40 tab 09/06/20 oxyCODONE HCL [OxyIR] 5 mg PO Q6H PRN 3 Days #10 tab 09/06/20 Allergies Allergy/AdvReac Type Severity Reaction Status Date / Time lactose Allergy Diarrhea Verified 09/06/20 06:33 Milk Containing Products Allergy Dyspnea Verified 09/06/20 06:33 (Dairy) [Dairy] Review of Systems ROS Statement: Those systems with pertinent positive or pertinent negative responses have been documented in the HPI. ROS Other: All systems not noted in ROS Statement are negative. Past Medical History Past Medical History: Chest Pain / Angina, Diabetes Mellitus, Hyperlipidemia, Hypertension, Osteoarthritis (OA) Additional Past Medical History / Comment(s): panic attack History of Any Multi-Drug Resistant Organisms: None Reported Past Surgical History: Coronary Bypass/CABG, Heart Catheterization With Stent, Hernia Repair, Joint Replacement Additional Past Surgical History / Comment(s): hemorrhoidectomy, rosa knee replacements Past Anesthesia/Blood Transfusion Reactions: No Reported Reaction Additional Past Anesthesia/Blood Transfusion Reaction / Comment(s): no hx blood transfusion Past Psychological History: Anxiety Smoking Status: Current every day smoker - Past Family History Mother Family Medical History: Neurologic Disorder Father Additional Family Medical History / Comment(s): Father from a work-r elated injury. General Exam Limitations: no limitations General appearance: alert, in no apparent distress Respiratory exam: Present: normal lung sounds bilaterally. Absent: respiratory distress, wheezes, rales, rhonchi, stridor Cardiovascular Exam: Present: regular rate, normal rhythm, normal heart sounds. Absent: systolic murmur, diastolic murmur, rubs, gallop, clicks GI/Abdominal exam: Present: soft, tenderness (suprapubic), normal bowel sounds, other (there is blood clots and dark red urine in catheter bag.). Absent: distended, guarding, rebound, rigid Neurological exam: Present: alert, oriented X3, CN II-XII intact Psychiatric exam: Present: normal affect, normal mood Skin exam: Present: warm, dry, intact, normal color. Absent: rash Course Vital Signs 01/18/23 16:43 Temperature 98.4 F Pulse Rate 100 Respiratory 20 Rate Blood Pressure 160/88 O2 Sat by Pulse 95 Oximetry Medical Decision Making - Medical Decision Making Was pt. sent in by a medical professional or institution (, PA, SOLID WASTE MANAGER, urgent care, hospital, or assisted...) When possible be specific @ -No Did you speak to anyone other than the patient for history (EMS, parent, family, police, friend...)? What history was obtained from this source @ -No Did you review nursing and triage notes (agree or disagree)? Why? @ -I reviewed and agree with nursing and triage notes Were old charts reviewed (outside hosp., previous admission, EMS record, old EKG, old radiological studies, urgent care reports/EKG's, assisted records)? Report findings @ -No old charts were reviewed Differential Diagnosis (chest pain, altered mental status, abdominal pain women, abdominal pain men, vaginal bleeding, weakness, fever, dyspnea, syncope, headache, dizziness, GI bleed, back pain, seizure, CVA, palpatations, mental health, musculoskeletal)? @ -Differential Abdominal Pain Men:Appendicitis, cholecystitis, diverticulosis, ischemic bowel, pancreatitis, hepatitis, UTI, gastroenteritis, AAA, incarcerated hernia, bowel obstruction, constipation, inflammatory bowel, hepatitis, peptic ulcer disease, splenic infarction, perforated viscus, testicular torsion, this is not meant to be an all-inclusive list EKG interpreted by me (3pts min.). @ -None X-rays interpreted by me (1pt min.). @ -None done CT interpreted by me (1pt min.). @ -None done U/S interpreted by me (1pt. min.). @ -None done What testing was considered but not performed or refused? (CT, X-rays, U/S, labs)? Why? @ -None What meds were considered but not given or refused? Why? @ -None Did you discuss the management of the patient with other professionals (professionals i.e. , PA, SOLID WASTE MANAGER, lab, RT, psych nurse, director social, color making supervisor, teacher, morale officer, spring encaser)? Give summary @ -Yes, I spoke with Dr. Berkowitz. He advised that we could change the catheter but to increase the [place] size of the new one. Was smoking cessation discussed for >3mins.? @ -No Was critical care preformed (if so, how long)? @ -No Were there social determinants of health that impacted care today? How? (Homelessness, low income, unemployed, alcoholism, drug addiction, transportation, low edu. Level, literacy, decrease access to med. care, skilled nursing, rehab)? @ -No Was there de-escalation of care discussed even if they declined (Discuss DNR or withdrawal of care, Hospice)? DNR status @ -No What co-morbidities impacted this encounter? (DM, HTN, Smoking, COPD, CAD, Cancer, CVA, ARF, Chemo, Hep., AIDS, mental health diagnosis, sleep apnea, morbid obesity)? @ -None Was patient admitted / discharged? Hospital course, mention meds given and route, prescriptions, significant lab abnormalities, going to OR and other pertinent info. @ -Discharge. On examination, patient's vital signs were stable. Patient did have blood clots and dark red urine in catheter bag. I spoke with Dr. Berkowitz prior to sandoval catheter change and he advised that it was okay to change the catheter and to place one size up of the current sandoval. A 20-Liberian was placed by nurse. Patient received by mouth Tylenol for pain control. Patient was monitored in the ER to make sure sandoval was draining. Patient will be discharged in stable condition with follow-up to Dr. Angelo. Patient states he has an appointment with him on Saturday. Return parameters were discussed. Patient expressed understanding and agreement with care plan. Undiagnosed new problem with uncertain prognosis? @ -No Drug Therapy requiring intensive monitoring for toxicity (Heparin, Nitro, Insulin, Cardizem)? @ -No Were any procedures done? @ -No Diagnosis/symptom? @ -Urinary catheter check Acute, or Chronic, or Acute on Chronic? @ -Acute Uncomplicated (without systemic symptoms) or Complicated (systemic symptoms)? @ -Uncomplicated Side effects of treatment? @ -No Exacerbation, Progression, or Severe Exacerbation? @ -No Poses a threat to life or bodily function? How? (Chest pain, [place], [place], pneumonia, PE, COPD, DKA, ARF, appy, cholecystitis, CVA, Diverticulitis, Homicidal, Suicidal, threat to staff... and all critical care pts) @ -No Disposition Clinical Impression: Catheter (urine) change required Disposition: HOME SELF-CARE Condition: Stable Additional Instructions: Please return to the Emergency Department if symptoms worsen or any other concerns. Please follow-up with Dr. Angelo in office. Is patient prescribed a controlled substance at d/c from ED?: No Referrals: Ruthann Artis MD [Primary Care Provider] - 1-2 days Time of Disposition: 19:01
[2023-01-18 17:28] VITALS: BP 160/88; PULSE 100; RESP 20; TEMP 98.4
[2023-01-18] MEDS ORDERED: ACETAMINOPHEN TAB 325 MG TAB PO STA (18:30)
== END 2023-01-18 19:13 | disposition home or self-care (01) ==
LOC: EC 15:49
DX: T83.9XXA Unspecified complication of genitourinary prosthetic device, implant and graft, initial encounter (principal); E11.9 Type 2 diabetes mellitus without complications; I10 Essential (primary) hypertension; F17.200 Nicotine dependence, unspecified, uncomplicated; Z86.59 Personal history of other mental and behavioral disorders; Z79.899 Other long term (current) drug therapy; Z79.84 Long term (current) use of oral hypoglycemic drugs; Z79.82 Long term (current) use of aspirin; Z91.011 Allergy to milk products
CPT/HCPCS: 51702; 99283

== ENCOUNTER 2023-12-23 20:49 | Emergency (ER) | payer MEDICARE, OTHER ==
[2023-12-23] MEDS: LIDOCAINE 1% INJ 10MG/ML (20 ML MDV) SQ ONE (21:57)
--- NOTE | 2023-12-23 22:01 | ED ---
ENT HPI - General Chief complaint: ENT Stated complaint: L Ear issues-something in ear Time Seen by Provider: 12/23/23 21:57 Source: patient, RN notes reviewed Mode of arrival: ambulatory Limitations: no limitations - History of Present Illness Initial comments: 68-year-old male presenting to the ER with chief complaint of foreign body in left ear. Patient reports 1 hour ago he was in the storage room of his house when he felt a bug crawl into his ear. Since then he has felt "pop rocks sensation" in his ear when the bug moves. - Related Data Home Medications Medication Instructions Recorded Confirmed metFORMIN HCL [Glucophage] 500 mg PO BID 11/10/19 09/06/20 Metoprolol Succinate (ER) [Toprol 25 mg PO QAM 07/01/20 09/06/20 Xl] Aspirin [Adult Low Dose Aspirin EC] 81 mg PO DAILY 09/02/20 09/06/20 Isosorbide Mononitrate [Isosorbide 30 mg PO DAILY 09/02/20 09/06/20 Mononitrate ER] Losartan [Cozaar] 25 mg PO DAILY 09/02/20 09/06/20 Magnesium 250 mg PO W/LUNCH 09/02/20 09/06/20 Previous Rx's Medication Instructions Recorded Acetaminophen Tab [Tylenol] 650 mg PO Q6H #30 tab 09/06/20 Docusate [Colace] 100 mg PO BID #20 capsule 09/06/20 Ibuprofen [Motrin] 600 mg PO Q6HR PRN #40 tab 09/06/20 oxyCODONE HCL [OxyIR] 5 mg PO Q6H PRN 3 Days #10 tab 09/06/20 Ofloxacin 0.3% Otic Soln [Floxin 5 drops BOTH EARS BID #10 ml 12/23/23 0.3% Otic Soln] Allergies Allergy/AdvReac Type Severity Reaction Status Date / Time lactose Allergy Diarrhea Verified 09/06/20 06:33 Milk Containing Products Allergy Dyspnea Verified 09/06/20 06:33 (Dairy) [Dairy] Review of Systems ROS Statement: Those systems with pertinent positive or pertinent negative responses have been documented in the HPI. ROS Other: All systems not noted in ROS Statement are negative. Past Medical History Past Medical History: Chest Pain / Angina, Diabetes Mellitus, Hyperlipidemia, Hypertension, Osteoarthritis (OA) Additional Past Medical History / Comment(s): panic attack History of Any Multi-Drug Resistant Organisms: None Reported Past Surgical History: Coronary Bypass/CABG, Heart Catheterization With Stent, Hernia Repair, Joint Replacement Additional Past Surgical History / Comment(s): hemorrhoidectomy, rosa knee replac ements Past Anesthesia/Blood Transfusion Reactions: No Reported Reaction Additional Past Anesthesia/Blood Transfusion Reaction / Comment(s): no hx blood transfusion Past Psychological History: Anxiety Smoking Status: Current every day smoker Past Alcohol Use History: Occasional Past Drug Use History: None Reported - Past Family History Mother Family Medical History: Neurologic Disorder Father Additional Family Medical History / Comment(s): Father from a work- related injury. General Exam Limitations: no limitations General appearance: alert, in no apparent distress Head exam: Present: atraumatic, normocephalic, normal inspection Eye exam: Present: normal appearance, PERRL, EOMI. Absent: scleral icterus, conjunctival injection, periorbital swelling ENT exam: Present: mucous membranes moist, other (Insect present in left ear canal) Neurological exam: Present: alert, oriented X3 Psychiatric exam: Present: normal affect, normal mood Skin exam: Present: warm, dry, intact, normal color. Absent: rash Course Vital Signs 12/23/23 21:05 Temperature 97.5 F L Pulse Rate 104 H Respiratory 20 Rate Blood Pressure 191/87 O2 Sat by Pulse 94 L Oximetry Procedures - Foreign Body Removal Ear Location: ear canal (L) Foreign Body Suspected: insect If Insect Suspected: ear canal inspected; intact TM, insect seen Foreign Body Removed: yes Foreign Body Removal Technique: forceps Tympanic Membrane Intact: Yes Patient Tolerated Procedure: well, no complications Complications: none Additional Comments: TM intact status post procedure Medical Decision Making - Medical Decision Making Was pt. sent in by a medical professional or institution (, PA, EDM OPERATOR, urgent care, hospital, or fpc...) When possible be specific @ -No Did you speak to anyone other than the patient for history (EMS, parent, family, police, friend...)? What history was obtained from this source @ -No Did you review nursing and triage notes (agree or disagree)? Why? @ -I reviewed and agree with nursing and triage notes Were old charts reviewed (outside hosp., previous admission, EMS record, old EKG, old radiological studies, urgent care reports/EKG's, fpc records)? Report findings @ -No old charts were reviewed Differential Diagnosis (chest pain, altered mental status, abdominal pain women, abdominal pain men, vaginal bleeding, weakness, fever, dyspnea, syncope, headache, dizziness, GI bleed, back pain, seizure, CVA, palpatations, mental health, musculoskeletal)? @ -Foreign body, otitis media, otitis externa EKG interpreted by me (3pts min.). @ -None X-rays interpreted by me (1pt min.). @ -None done CT interpreted by me (1pt min.). @ -None done U/S interpreted by me (1pt. min.). @ -None done What testing was considered but not performed or refused? (CT, X-rays, U/S, labs)? Why? @ -None What meds were considered but not given or refused? Why? @ -None Did you discuss the management of the patient with other professionals (professionals i.e. , PA, EDM OPERATOR, lab, RT, psych nurse, social media developer, base wad operator adjuster, teacher, tank officer, case resolution specialist)? Give summary @ -No Was smoking cessation discussed for >3mins.? @ -No Was critical care preformed (if so, how long)? @ -No Were there social determinants of health that impacted care today? How? (Homelessness, low income, unemployed, alcoholism, drug addiction, transportation, low edu. Level, literacy, decrease access to med. care, [facility], rehab)? @ -No Was there de-escalation of care discussed even if they declined (Discuss DNR or withdrawal of care, Hospice)? DNR status @ -No What co-morbidities impacted this encounter? (DM, HTN, Smoking, COPD, CAD, Cancer, CVA, ARF, Chemo, Hep., AIDS, mental health diagnosis, sleep apnea, morbid obesity)? @ -None Was patient admitted / discharged? Hospital course, mention meds given and route, prescriptions, significant lab abnormalities, going to OR and other pertinent info. @ -Discharged. 68-year-old male presenting to the ER with chief complaint of foreign body sensation in left ear x 1 hour. On examination, there is a insect visualized in the left ear canal. Lidocaine was inserted into the ear canal for 1 minute to kill insect. Then, forceps and irrigation were used to successfully remove insect from your canal. TM intact status post procedure. Ofloxacin drops were sent for antibacterial prophylaxis. Case was discussed with the ED attending Dr. Prasad. Patient discharged in stable condition. Undiagnosed new problem with uncertain prognosis? @ -No Drug Therapy requiring intensive monitoring for toxicity (Heparin, Nitro, Insulin, Cardizem)? @ -No Were any procedures done? @ -No Diagnosis/symptom? @ -Insect in left ear canal Acute, or Chronic, or Acute on Chronic? @ -Acute Uncomplicated (without systemic symptoms) or Complicated (systemic symptoms)? @ -Uncomplicated Side effects of treatment? @ -No Exacerbation, Progression, or Severe Exacerbation? @ -No Poses a threat to life or bodily function? How? (Chest pain, [place], [place], pneumonia, PE, COPD, DKA, ARF, appy, cholecystitis, CVA, Diverticulitis, Homicidal, Suicidal, threat to staff... and all critical care pts) @ -No Disposition Clinical Impression: Insect bite of left ear Disposition: HOME SELF-CARE Condition: Stable Instructions (If sedation given, give patient instructions): Ear Foreign Body (ED) Additional Instructions: Use ofloxacin drops twice daily for 5 days. Please return to the Emergency Department if symptoms worsen or any other concerns. Prescriptions: Ofloxacin 0.3% Otic Soln [Floxin 0.3% Otic Soln] 5 drops BOTH EARS BID #10 ml Is patient prescribed a controlled substance at d/c from ED?: No Referrals: Chin Zhou MD [Primary Care Provider] - 1-2 days Time of Disposition: 22:28
[2023-12-23 22:05] VITALS: TEMP 97.5
[2023-12-23 22:47] VITALS: BP 151/85; PULSE 86; RESP 16
== END 2023-12-23 22:42 | disposition home or self-care (01) ==
LOC: EC 20:49
DX: T16.2XXA Foreign body in left ear, initial encounter (principal); F17.200 Nicotine dependence, unspecified, uncomplicated; Z91.011 Allergy to milk products; W57.XXXA Bitten or stung by nonvenomous insect and other nonvenomous arthropods, initial encounter
CPT/HCPCS: 69200; 99282; J2003

== ENCOUNTER 2024-04-24 07:26 | Day surgery (SDC) | payer MEDICARE, OTHER ==
[~2024-04-24 07:26] MED LIST changes: -ACETAMINOPHEN TAB 500 MG TAB PO PRN; -DEXAMETHASONE SOD PHOSPHATE 4 MG/ML 1 ML VIAL IV ONE; -HEPARIN SODIUM,PORCINE/PF 5,000 UNIT/0.5 ML SYRINGE SQ PRN; +HYDROmorphone 0.5 MG/0.5 ML SYRINGE IVP PRN; -LACTATED RINGERS 1,000 ML IV SCH; +MIDAZOLAM 2 MG/2 ML VIAL IV PRN; -ONDANSETRON 4 MG/2 ML VIAL IVP ONE; -SCOPOLAMINE 1.5MG/72HR PATCH TRANSDERM ONE
[2024-04-24 07:51] VITALS: TEMP 97.2
[2024-04-24 08:09] LABS: Glucose,Whole Blood 144 mg/dL (70-110)
[2024-04-24] MEDS: DEXAMETHASONE SOD PHOSPHATE 4 MG/ML 1 ML VIAL IV ONE (08:13)
[2024-04-24] MEDS: ACETAMINOPHEN TAB 500 MG TAB PO PRN (08:13)
[2024-04-24] MEDS: ONDANSETRON 4 MG/2 ML VIAL IVP ONE (08:13)
[2024-04-24] MEDS: LACTATED RINGERS 1,000 ML IV SCH (08:15)
[2024-04-24 08:19] LABS: HCT 46.8 % (39.0-53.0); HGB 15.1 gm/dL (13.0-17.5); MCHC 32.2 g/dL (31.0-37.0); Mean Platelet Volume 8.4; Platelet Count 241 k/uL (150-450); RBC 5.03 m/uL (4.30-5.90); RDW 14.9 % (11.5-15.5)
[2024-04-24 08:41] LABS: African American GFR (CKD) >90 (>60 ml/min/1.73 sqM); Anion Gap 12 mmol/L; Blood Urea Nitrogen 16 mg/dL (9-20); Calcium 9.3 mg/dL (8.4-10.2); Carbon Dioxide 25 mmol/L (22-30); Chloride 104 mmol/L (98-107); Glucose 142 mg/dL (74-99); Non-African American GFR(CKD) 89 (>60 ml/min/1.73 sqM); Potassium 4.7 mmol/L (3.5-5.1); Sodium 141 mmol/L (137-145)
[2024-04-24] MEDS: IV FLUID CONTINUATION 1,000 ML IV ONE (08:42)
[2024-04-24] MEDS: fentaNYL (PF) 50 MCG/ML 2 ML AMP IVP ONE (08:44)
[2024-04-24] MEDS: MIDAZOLAM 2 MG/2 ML VIAL IVP ONE (08:44)
[2024-04-24] MEDS: HEPARIN SODIUM,PORCINE 5,000 UNIT/ML 1 ML VIAL SQ PRN (09:03)
[2024-04-24] MEDS ORDERED: ROCURONIUM 10 MG/ML (5 ML VIAL) IV ONE (09:49)
[2024-04-24] MEDS ORDERED: fentaNYL (PF) 50 MCG/ML 2 ML AMP ONE (09:49)
[2024-04-24] MEDS ORDERED: ROPIVACAINE 5 MG/ML 30 ML VIAL ONE (09:49)
[2024-04-24] MEDS ORDERED: PHENYLEPHRINE-0.9% NACL SYG 1,000 MCG/10 ML SYRINGE ONE (09:49)
[2024-04-24] MEDS ORDERED: NEOSTIGMINE 1 MG/ML 10 ML VIAL ONE (09:49)
[2024-04-24] MEDS ORDERED: GLYCOPYRROLATE 0.2 MG/ML 2 ML VIAL ONE (09:49)
[2024-04-24] MEDS ORDERED: SUCCINYLCHOLINE CHLORIDE 200 MG/10 ML VIAL IV ONE (09:49)
[2024-04-24] MEDS ORDERED: PROPOFOL 10 MG/ML 20 ML VIAL IV ONE (09:49)
[2024-04-24] MEDS ORDERED: DEXAMETHASONE SOD PHOSPHATE 4 MG/ML 1 ML VIAL ONE (09:49)
[2024-04-24] MEDS ORDERED: HYDROmorphone (PF) 1 MG/ML ONE (09:49)
[2024-04-24] MEDS ORDERED: LIDOCAINE 4% LTA KIT (4 ML) TOPICAL ONE (09:49)
[2024-04-24] MEDS ORDERED: LIDOCAINE 1% INJ 10MG/ML (20 ML MDV) ONE (09:49)
[2024-04-24] MEDS ORDERED: KETOROLAC 15 MG/ML 1 ML VIAL ONE (09:49)
[2024-04-24] MEDS ORDERED: SODIUM CHLORIDE 0.9% (PF) 10 ML VIAL ONE (09:49)
[2024-04-24] MEDS: LIDOCAINE 1%-EPI 1:100,000 20 ML VIAL SQ ONE ×2 (10:40)
--- NOTE | 2024-04-24 10:59 | P.OP ---
Date of Procedure: 04/24/24 Preoperative Diagnosis: Incisional hernia Postoperative Diagnosis: Incisional hernia Procedure(s) Performed: Open repair of incisional hernia with Prolene mesh Anesthesia: DARLINE Surgeon: Brandon Leggett Estimated Blood Loss (ml): 5 Pathology: none sent Condition: stable Disposition: PACU Description of Procedure: The patient was placed on the operative table in the supine position. He received general esthesia. His abdomen was prepped and draped you sterile fashion. The skin was incised over the hernia. The hernia was located the epigastrium just below the xiphoid. Next using electrocautery the subcu tissue divided. The fascial defect was visualized. The hernia sac was invaginated back into the Scribner cavity and then using #1 Ethibond sutures the hernia was repaired. A 6 x 6 inch piece of Prolene mesh placed over top of the repair and secured with secure strap tacker. A WENDY drains placed over top of the mesh and brought through separate stab incision. The subcu tissue closed with 0 Vicryl. Skin was closed Abels. Patient tolerated well. He was sent to recovery room in stable condition.
--- NOTE | 2024-04-24 13:36 | P.ANPRN ---
Procedure Note - Anesthesia - Nerve Block Performed Bilateral Erector Spinae Single Time Out Performed: Yes ([id number]) Date of Procedure: 04/24/24 Procedure Start Time: 08:45 Procedure Stop Time: 08:52 Location of Patient: PreOp Indication: Acute Post-Operative Pain, Requested by Surgeon Specifically requested for management of pain by : Brandon Leggett Sedation Type: Sedate with meaningful contact maintained Preparation: Sterile Prep Position: Sitting Catheter: None Needle Types: Pajunk Needle Gauge: 21 (x2) Ultrasound used to visualize needle placement: Yes Ultrasound used to observe medication spread: Yes Injectate: 0.5% Ropivacaine (see comment for volume) (15cc+10cc nacl pf+4MG DECADRON EACH SIDE) Blood Aspirated: No Pain Paresthesia on Injection Noted: No Resistance on Injection: Normal Image Stored and Saved: Yes Events: Uneventful and Well Tolerated
[2024-04-24] MEDS: TAMSULOSIN 0.4 MG CAP.ER.24H PO STA (14:57)
[2024-04-24 14:59] LABS: Glucose,Whole Blood 258 mg/dL (70-110)
[2024-04-24 15:35] LABS: Glucose,Whole Blood 251 mg/dL (70-110)
[2024-04-24 15:37] VITALS: RESP 16
[2024-04-24 16:11] VITALS: BP 130/80; PULSE 97
== END 2024-04-24 17:10 | disposition home or self-care (01) ==
LOC: OR 07:26
PROVIDERS: ATTEND Surgery
DX: K43.2 Incisional hernia without obstruction or gangrene (principal); G89.18 Other acute postprocedural pain; E11.9 Type 2 diabetes mellitus without complications; E78.5 Hyperlipidemia, unspecified; F17.200 Nicotine dependence, unspecified, uncomplicated
CPT/HCPCS: 49591; 64999; 80048; 85027; C1781; J2250; J0330; J1644; J1100; J2710; J0690; J2405; J2003; J3010; J1171; J2795; J1885; J2704; J2371; J1596

== ENCOUNTER 2024-05-06 08:43 | Emergency (ER) | payer MEDICARE, OTHER ==
--- NOTE | 2024-05-06 09:47 | ED ---
General Adult HPI - General Chief complaint: Urogenital Stated complaint: cath issue Time Seen by Provider: 05/06/24 08:53 Source: patient, RN notes reviewed, old records reviewed Mode of arrival: ambulatory Limitations: no limitations - History of Present Illness Initial comments: 68-year-old male presenting with lower abdominal discomfort and nonflowing urinary catheter. Patient had abdominal surgery and has an indwelling Eugene catheter because he was not able to urinate. No fever. No vomiting. - Related Data Home Medications Medication Instructions Recorded Confirmed metFORMIN HCL [Glucophage] 1,000 mg PO BID 11/10/19 04/21/24 Metoprolol Succinate (ER) [Toprol 50 mg PO QAM 07/01/20 04/21/24 Xl] Aspirin [Adult Low Dose Aspirin EC] 81 mg PO DAILY 09/02/20 04/21/24 Isosorbide Mononitrate [Isosorbide 30 mg PO DAILY 09/02/20 04/21/24 Mononitrate ER] Magnesium 500 mg PO W/LUNCH 09/02/20 04/21/24 Dapagliflozin Propanediol [Farxiga] 10 mg PO DAILY 04/21/24 04/21/24 Insulin Glargine,Hum.rec.anlog 60 units SQ HS 04/21/24 04/21/24 [Lantus Solostar Pen] Ketoconazole 2% Cream [Nizoral 2%] 1 applic TOPICAL DIRECTED 04/21/24 04/21/24 Nitroglycerin 0.4 mg SL DIRECTED PRN 04/21/24 04/21/24 Rosuvastatin Calcium 40 mg PO DAILY 04/21/24 04/21/24 Unk Multi Vitamin 1 tab PO DAILY 04/21/24 04/21/24 Previous Rx's Medication Instructions Recorded Acetaminophen Tab [Tylenol] 650 mg PO Q6H #30 tab 09/06/20 Acetaminophen Tab [Tylenol] 650 mg PO Q6H #30 tab 04/24/24 Docusate [Colace] 100 mg PO BID #20 capsule 04/24/24 Ibuprofen [Motrin] 600 mg PO Q6HR PRN #40 tab 04/24/24 oxyCODONE HCL [OxyIR] 5 mg PO Q6H PRN 3 Days #10 tab 04/24/24 Allergies Allergy/AdvReac Type Severity Reaction Status Date / Time bee venom protein (honey bee) Allergy red skin , Verified 05/06/24 08:49 dyspnea, vomiting lactose Allergy Diarrhea Verified 05/06/24 08:49 Milk Containing Products Allergy Dyspnea Verified 05/06/24 08:49 (Dairy) [Dairy] Review of Systems ROS Statement: Those systems with pertinent positive or pertinent negative responses have been documented in the HPI. ROS Other: All systems not noted in ROS Statement are negative. Past Medical History Past Medical History: Chest Pain / Angina, Diabetes Mellitus, Hyperlipidemia, Hypertension, Osteoarthritis (OA) Additional Past Medical History / Comment(s): panic attack, recent tx for UTI, ? BPH urinary leakage at night wears briefs. ? bacteria to toenails- using cream. chest area incisional hernia. History of Any Multi-Drug Resistant Organisms: None Reported Past Surgical History: Coronary Bypass/CABG, Heart Catheterization With Stent, Hernia Repair, Joint Replacement Additional Past Surgical History / Comment(s): hemorrhoidectomy, rosa knee replacements. four stents. colonoscopy. CABG 2019 Past Anesthesia/Blood Transfusion Reactions: No Reported Reaction Additional Past Anesthesia/Blood Transfusion Reaction / Comment(s): no hx blood transfusion Date of Last Stent Placement:: ? Past Psychological History: Anxiety Smoking Status: Current every day smoker Past Alcohol Use History: Occasional Past Drug Use History: Marijuana - Past Family History Mother Family Medical History: Dementia, Myocardial Infarction ([place]) Additional Family Medical History / Comment(s): alzheimers Father Additional Family Medical History / Comment(s): Father from a work- related injury. fell 36 stories General Exam Limitations: no limitations General appearance: alert, in no apparent distress Head exam: Present: atraumatic, normocephalic Eye exam: Present: normal appearance, PERRL ENT exam: Present: normal exam Neck exam: Present: normal inspection. Absent: tenderness Respiratory exam: Present: normal lung sounds bilaterally. Absent: respiratory distress, wheezes Cardiovascular Exam: Present: regular rate, normal rhythm GI/Abdominal exam: Present: soft, other (Ecchymosis, abdominal binder in place). Absent: distended, tenderness exam: Present: normal inspection Neurological exam: Present: alert, oriented X3 Psychiatric exam: Present: normal affect, normal mood Skin exam: Present: warm, dry, intact Course Vital Signs 05/06/24 08:44 Temperature 97.8 F Pulse Rate 89 Respiratory 20 Rate Blood Pressure 159/76 O2 Sat by Pulse 98 Oximetry Medical Decision Making - Medical Decision Making Was pt. sent in by a medical professional or institution (EMILY Tellez, MORTGAGE LOAN REVIEWER, urgent care, hospital, or fdc...) When possible be specific @ -No Did you speak to anyone other than the patient for history (EMS, parent, family, police, friend...)? What history was obtained from this source @ -No Did you review nursing and triage notes (agree or disagree)? Why? @ -I reviewed and agree with nursing and triage notes Were old charts reviewed (outside hosp., previous admission, EMS record, old EKG, old radiological studies, urgent care reports/EKG's, fdc records)? Report findings @ -No old charts were reviewed Differential Diagnosis: occluded Eugene catheter, urinary retention EKG interpreted by me (3pts min.). @ -As above X-rays interpreted by me (1pt min.). @ -None done CT interpreted by me (1pt min.). @ -None done U/S interpreted by me (1pt. min.). @ -None done What testing was considered but not performed or refused? (CT, X-rays, U/S, labs)? Why? @ -None What meds were considered but not given or refused? Why? @ -None Did you discuss the management of the patient with other professionals (professionals i.e. EMILY Tellez, MORTGAGE LOAN REVIEWER, lab, RT, psych nurse, social work case manager, timber poisoner, teacher, tactical intelligence officer, shelter case manager)? Give summary @ -No Was smoking cessation discussed for >3mins.? @ -No Was critical care preformed (if so, how long)? @ -No Were there social determinants of health that impacted care today? How? (Homelessness, low income, unemployed, alcoholism, drug addiction, transportation, low edu. Level, literacy, decrease access to med. care, intermediate, rehab)? @ -No Was there de-escalation of care discussed even if they declined (Discuss DNR or withdrawal of care, Hospice)? DNR status @ -No What co-morbidities impacted this encounter? (DM, HTN, Smoking, COPD, CAD, Cancer, CVA, ARF, Chemo, Hep., AIDS, mental health diagnosis, sleep apnea, morbid obesity)? @ -None Was patient admitted / discharged? Hospital course, mention meds given and route, prescriptions, significant lab abnormalities, going to OR and other pertinent info. @ -68-year-old male with occluded Eugene catheter. Patient wanted the catheter removed and a trial of voiding. We did remove the catheter and observe the patient he was able to void approximately 100 cc of urine and bladder scan had over 700. Decision was made to replace the catheter and give follow-up to urology. Repeat Eugene catheter placed in the emergency department. Undiagnosed new problem with uncertain prognosis? @ -No Drug Therapy requiring intensive monitoring for toxicity (Heparin, Nitro, Insulin, Cardizem)? @ -No Were any procedures done? @ -No Diagnosis/symptom? @ -Urinary retention Acute, or Chronic, or Acute on Chronic? @Acute Uncomplicated (without systemic symptoms) or Complicated (systemic symptoms)? @ -Default Side effects of treatment? @ -No Exacerbation, Progression, or Severe Exacerbation? @ -No Poses a threat to life or bodily function? How? (Chest pain, [place], [place], pneumonia, PE, COPD, DKA, ARF, appy, cholecystitis, CVA, Diverticulitis, Homicidal, Suicidal, threat to staff... and all critical care pts) @ -No Disposition Clinical Impression: Acute retention of urine Disposition: HOME SELF-CARE Condition: Fair Instructions (If sedation given, give patient instructions): Urinary Retention in Men (ED) Is patient prescribed a controlled substance at d/c from ED?: No Referrals: Theodora Poole MD [Primary Care Provider] - 1-2 days Flavio Jones MD [STAFF PHYSICIAN] - 1-2 days Time of Disposition: 09:46
[2024-05-06 10:37] VITALS: BP 142/82; PULSE 82; RESP 18; TEMP 97.9
== END 2024-05-06 10:44 | disposition home or self-care (01) ==
LOC: EC 08:43
DX: R33.9 Retention of urine, unspecified (principal); F17.200 Nicotine dependence, unspecified, uncomplicated; Z91.030 Bee allergy status; Z91.011 Allergy to milk products
CPT/HCPCS: 51702; 51798; 99283

== ENCOUNTER 2024-05-11 16:19 | Emergency (ER) | payer MEDICARE, OTHER ==
--- NOTE | 2024-05-11 17:08 | ED ---
Male Urogenital HPI - General Chief complaint: Urogenital Stated complaint: Cath Issues Time Seen by Provider: 05/11/24 17:04 Source: patient, RN notes reviewed Mode of arrival: ambulatory Limitations: no limitations - History of Present Illness Initial comments: This is a 68 year old male who presents to the emergency department to have his Eugene catheter removed. It was placed postooperatively earlier this month because he could not urinate after the surgery. States that it is starting to come out and leak around it, and he would like to just have it removed. He does report some pain with urination. Not currently on any antibiotics. - Related Data Home Medications Medication Instructions Recorded Confirmed metFORMIN HCL [Glucophage] 1,000 mg PO BID 11/10/19 04/21/24 Metoprolol Succinate (ER) [Toprol 50 mg PO QAM 07/01/20 04/21/24 Xl] Aspirin [Adult Low Dose Aspirin EC] 81 mg PO DAILY 09/02/20 04/21/24 Isosorbide Mononitrate [Isosorbide 30 mg PO DAILY 09/02/20 04/21/24 Mononitrate ER] Magnesium 500 mg PO W/LUNCH 09/02/20 04/21/24 Dapagliflozin Propanediol [Farxiga] 10 mg PO DAILY 04/21/24 04/21/24 Insulin Glargine,Hum.rec.anlog 60 units SQ HS 04/21/24 04/21/24 [Lantus Solostar Pen] Ketoconazole 2% Cream [Nizoral 2%] 1 applic TOPICAL DIRECTED 04/21/24 04/21/24 Nitroglycerin 0.4 mg SL DIRECTED PRN 04/21/24 04/21/24 Rosuvastatin Calcium 40 mg PO DAILY 04/21/24 04/21/24 Unk Multi Vitamin 1 tab PO DAILY 04/21/24 04/21/24 Previous Rx's Medication Instructions Recorded Acetaminophen Tab [Tylenol] 650 mg PO Q6H #30 tab 09/06/20 Acetaminophen Tab [Tylenol] 650 mg PO Q6H #30 tab 04/24/24 Docusate [Colace] 100 mg PO BID #20 capsule 04/24/24 Ibuprofen [Motrin] 600 mg PO Q6HR PRN #40 tab 04/24/24 oxyCODONE HCL [OxyIR] 5 mg PO Q6H PRN 3 Days #10 tab 04/24/24 cefuroxime axetiL [Ceftin] 500 mg PO BID 7 Days #14 tab 05/11/24 Allergies Allergy/AdvReac Type Severity Reaction Status Date / Time bee venom protein (honey bee) Allergy red skin , Verified 05/11/24 17:08 dyspnea, vomiting lactose Allergy Diarrhea Verified 05/11/24 17:08 Milk Containing Products Allergy Dyspnea Verified 05/11/24 17:08 (Dairy) [Dairy] Review of Systems ROS Statement: Those systems with pertinent positive or pertinent negative responses have been documented in the HPI. ROS Other: All systems not noted in ROS Statement are negative. Past Medical History Past Medical History: Chest Pain / Angina, Diabetes Mellitus, Hyperlipidemia, Hypertension, Osteoarthritis (OA) Additional Past Medical History / Comment(s): panic attack, recent tx for UTI, ? BPH urinary leakage at night wears briefs. ? bacteria to toenails- using cream. chest area incisional hernia. History of Any Multi-Drug Resistant Organisms: None Reported Past Surgical History: Coronary Bypass/CABG, Heart Catheterization With Stent, Hernia Repair, Joint Replacement Additional Past Surgical History / Comment(s): hemorrhoidectomy, rosa knee replacements. four stents. colonoscopy. CABG 2019 Past Anesthesia/Blood Transfusion Reactions: No Reported Reaction Additional Past Anesthesia/Blood Transfusion Reaction / Comment(s): no hx blood transfusion Date of Last Stent Placement:: ? Past Psychological History: Anxiety Smoking Status: Current every day smoker Past Alcohol Use History: Occasional Past Drug Use History: Marijuana - Past Family History Mother Family Medical History: Dementia, Myocardial Infarction ([place]) Additional Family Medical History / Comment(s): alzheimers Father Additional Family Medical History / Comment(s): Father from a work- related injury. fell 36 stories General Exam Limitations: no limitations General appearance: alert, in no apparent distress Head exam: Present: atraumatic, normocephalic, normal inspection Respiratory exam: Present: normal lung sounds bilaterally. Absent: respiratory distress, wheezes, rales, rhonchi, stridor Cardiovascular Exam: Present: regular rate, normal rhythm, normal heart sounds. Absent: systolic murmur, diastolic murmur, rubs, gallop, clicks GI/Abdominal exam: Present: soft, normal bowel sounds. Absent: distended, tenderness, guarding, rebound, rigid Neurological exam: Present: alert, oriented X3, CN II-XII intact Psychiatric exam: Present: normal affect, normal mood Skin exam: Present: warm, dry, intact, normal color. Absent: rash Course Vital Signs 05/11/24 05/11/24 17:05 19:32 Temperature 98.6 F 98.3 F Pulse Rate 81 73 Respiratory 20 16 Rate Blood Pressure 157/77 167/77 O2 Sat by Pulse 96 97 Oximetry Medical Decision Making - Medical Decision Making This is a 68-year-old male who presents to the emergency department for urinary symptoms. Was pt. sent in by a medical professional or institution? @ -No Did you speak to anyone other than the patient for history? @ -No Did you review nursing and triage notes? @ -Yes, and I agree, it is accurate with regards to the patient's symptoms. Were old charts reviewed? @ -No Differential Diagnosis? @ -UTI, malpositioned catheter, urinary retention, blood clot, this is not meant to be an all-inclusive list. EKG interpreted by me (3pts min.)? @ -Not obtained X-rays interpreted by me (1pt min.)? @ -Not obtained CT interpreted by me (1pt min.)? @ -Not obtained U/S interpreted by me (1pt. min.)? @ -Not obtained What testing was considered but not performed? (CT, X-rays, U/S, labs)? Why? @ -None What meds were considered but not given? Why? @ -None Did you discuss the management of the patient with other professionals? @ -No Did you reconcile home meds? @ -No Was smoking cessation discussed for >3mins.? @ -No Was critical care preformed (if so, how long)? @ -No Were there social determinants of health that impacted care today? How? (Homelessness, low income, unemployed, alcoholism, drug addiction, transportation, low edu. Level, literacy, decrease access to med. care, assisted, rehab)? @ -No Was there de-escalation of care discussed even if they declined? (Discuss DNR or withdrawal of care, Hospice)? @ -No What co-morbidities impacted this encounter? (DM, HTN, Smoking, COPD, CAD, Cancer, CVA, Hep., AIDS, mental health diagnosis, sleep apnea, morbid obesity)? @ -None Was patient admitted / discharged? @ -Discharged. The Eugene catheter was removed per the patient's request and he was able to urinate on his own afterwards. He was also no longer experiencing any discomfort. Urinalysis is somewhat suggestive of infection and urine was sent for culture. Given that he is not currently on antibiotics and this was the sample obtained after catheter removal, it was not taken from the catheter bag, he was started on cefuroxime. Patient discharged home stable condition. Case discussed with ED attending Dr. Medina. Return precautions reviewed in depth, the patient is instructed to return to the emergency department with any new, worsening, or concerning symptoms. Patient verbalized understanding. Undiagnosed new problem with uncertain prognosis? @ -None Drug Therapy requiring intensive monitoring for toxicity (Heparin, Nitro, Insulin, Cardizem)? @ -None Were any procedures done? @ -None Diagnosis/symptom? @ -UTI, encounter for Eugene catheter removal Acute, or Chronic, or Acute on Chronic? @ -Acute Uncomplicated (without systemic symptoms) or Complicated (systemic symptoms)? @ -Uncomplicated Side effects of treatment? @ -None Exacerbation, Progression, or Severe Exacerbation] @ -Not applicable Poses a threat to life or bodily function? @ -No - Lab Data Lab Results 05/11/24 Range/Units 17:51 Urine Color Light Yellow Urine Appearance Cloudy (Clear) Urine pH 5.5 (5.0-8.0) Ur Specific [place] 1.026 (1.001-1.035) Urine Protein Trace H (Negative) Urine Glucose (UA) 4+ H (Negative) Urine Ketones Trace H (Negative) Urine Blood Small H (Negative) Urine Nitrite Negative (Negative) Urine Bilirubin Negative (Negative) Urine Urobilinogen <2.0 (<2.0) mg/dL Ur Leukocyte Esterase Moderate H (Negative) Urine RBC 126 H (0-5) /hpf Urine WBC 40 H (0-5) /hpf Ur Squamous Epith Cells 3 (0-4) /hpf Urine Bacteria Occasional H (None) /hpf Urine Mucus Occasional H (None) /hpf Urine Yeast (Budding) Many H (None) /hpf Disposition Clinical Impression: UTI (urinary tract infection), Urinary catheter insertion/adjustment/removal Disposition: HOME SELF-CARE Instructions (If sedation given, give patient instructions): Urinary Tract Infection in Men (ED) Additional Instructions: Return to the emergency department with any new, worsening, or concerning symptoms. Take the antibiotic as prescribed for 7 days. Follow up with your primary care provider in 1-2 days. Prescriptions: cefuroxime axetiL [Ceftin] 500 mg PO BID 7 Days #14 tab Is patient prescribed a controlled substance at d/c from ED?: No Referrals: Theodora Poole MD [Primary Care Provider] - 1-2 days Time of Disposition: 19:06
[2024-05-11 18:16] LABS: Appearance,Urine Cloudy (Clear); Bacteria,Urine Occasional /hpf; Bilirubin,Urine Negative (Negative); Blood,Urine Small (Negative); Budding Yeast,Urine Many /hpf; Color,Urine Light Yellow; Glucose,Urine (UA) 4+ (Negative); Ketones,Urine Trace (Negative); Leukocyte Esterase,Urine Moderate (Negative); Mucus,Urine Occasional /hpf; Nitrite,Urine Negative (Negative); PH, Urine 5.5 (5.0-8.0); Protein,Urine Trace (Negative); RBC,Urine 126 /hpf (0-5); Specific Gravity,Urine 1.026 (1.001-1.035); Squamous Epithelial Cell,Urine 3 /hpf (0-4); Urobilinogen,Urine <2.0 mg/dL (<2.0); WBC,Urine 40 /hpf (0-5)
[2024-05-11] MEDS: cefTRIAXone 1,000 MG VIAL (IM USE) IM STA (19:32)
[2024-05-11 19:38] VITALS: BP 167/77; PULSE 73; RESP 16; TEMP 98.3
== END 2024-05-11 20:17 | disposition home or self-care (01) ==
LOC: EC 16:19
DX: N39.0 Urinary tract infection, site not specified (principal); F17.200 Nicotine dependence, unspecified, uncomplicated; Z46.6 Encounter for fitting and adjustment of urinary device; Z91.030 Bee allergy status; Z91.011 Allergy to milk products
CPT/HCPCS: 81001; 87086; 99283; 96372; 51702; J0696

== ENCOUNTER 2024-06-25 16:30 | Emergency (ER) | payer MEDICARE, OTHER ==
--- NOTE | 2024-06-25 16:52 | ED ---
Male Urogenital HPI - General Stated complaint: Abd pain/hard time urinating Time Seen by Provider: 06/25/24 16:46 Source: patient, RN notes reviewed Mode of arrival: ambulatory Limitations: no limitations - History of Present Illness Initial comments: This is a 68-year-old male with history including UTI and possible BPH presenting for bladder pressure and anuria since this morning. Patient states he has been unable to urinate normally following his incisional hernia surgery on 04/24/2024. Patient states he has been having "white clumps" from his bladder since his second Eugene placement after initial removal in this ER in April 2024. Endorses recently being treated for a yeast infection, with treatment lasting for 10 days with patient noting increased number and larger white clumps while urinating both during and after treatment, which ended 3 days ago. Patient suspects clumps are obstructing his urethra, preventing urination. Patient denies history of urinary retention prior to surgery. Denies fever, chills, back pain. Onset/Timin -: days(s) recent surgery, indwelling catheter Reports: urinary retention - Related Data Home Medications Medication Instructions Recorded Confirmed metFORMIN HCL [Glucophage] 1,000 mg PO BID 11/10/19 04/21/24 Metoprolol Succinate (ER) [Toprol 50 mg PO QAM 07/01/20 04/21/24 Xl] Aspirin [Adult Low Dose Aspirin EC] 81 mg PO DAILY 09/02/20 04/21/24 Isosorbide Mononitrate [Isosorbide 30 mg PO DAILY 09/02/20 04/21/24 Mononitrate ER] Magnesium 500 mg PO W/LUNCH 09/02/20 04/21/24 Dapagliflozin Propanediol [Farxiga] 10 mg PO DAILY 04/21/24 04/21/24 Insulin Glargine,Hum.rec.anlog 60 units SQ HS 04/21/24 04/21/24 [Lantus Solostar Pen] Ketoconazole 2% Cream [Nizoral 2%] 1 applic TOPICAL DIRECTED 04/21/24 04/21/24 Nitroglycerin 0.4 mg SL DIRECTED PRN 04/21/24 04/21/24 Rosuvastatin Calcium 40 mg PO DAILY 04/21/24 04/21/24 Unk Multi Vitamin 1 tab PO DAILY 04/21/24 04/21/24 Previous Rx's Medication Instructions Recorded Acetaminophen Tab [Tylenol] 650 mg PO Q6H #30 tab 09/06/20 Acetaminophen Tab [Tylenol] 650 mg PO Q6H #30 tab 04/24/24 Docusate [Colace] 100 mg PO BID #20 capsule 04/24/24 Ibuprofen [Motrin] 600 mg PO Q6HR PRN #40 tab 04/24/24 oxyCODONE HCL [OxyIR] 5 mg PO Q6H PRN 3 Days #10 tab 04/24/24 cefuroxime axetiL [Ceftin] 500 mg PO BID 7 Days #14 tab 05/11/24 Fluconazole 200 mg PO DAILY #14 tab 06/25/24 Allergies Allergy/AdvReac Type Severity Reaction Status Date / Time bee venom protein (honey bee) Allergy red skin , Verified 05/11/24 17:08 dyspnea, vomiting lactose Allergy Diarrhea Verified 05/11/24 17:08 Milk Containing Products Allergy Dyspnea Verified 05/11/24 17:08 (Dairy) [Dairy] Review of Systems ROS Statement: Those systems with pertinent positive or pertinent negative responses have been documented in the HPI. ROS Other: All systems not noted in ROS Statement are negative. Past Medical History Past Medical History: Chest Pain / Angina, Diabetes Mellitus, Hyperlipidemia, Hypertension, Osteoarthritis (OA) Additional Past Medical History / Comment(s): panic attack, recent tx for UTI, ? BPH urinary leakage at night wears briefs. ? bacteria to toenails- using cream. chest area incisional hernia. History of Any Multi-Drug Resistant Organisms: None Reported Past Surgical History: Coronary Bypass/CABG, Heart Catheterization With Stent, Hernia Repair, Joint Replacement Additional Past Surgical History / Comment(s): hemorrhoidectomy, rosa knee replacements. four stents. colonoscopy. CABG 2019 Past Anesthesia/Blood Transfusion Reactions: No Reported Reaction Additional Past Anesthesia/Blood Transfusion Reaction / Comment(s): no hx blood transfusion Date of Last Stent Placement:: ? Past Psychological History: Anxiety Smoking Status: Current every day smoker Past Alcohol Use History: Occasional Past Drug Use History: Marijuana - Past Family History Mother Family Medical History: Dementia, Myocardial Infarction ([place]) Additional Family Medical History / Comment(s): alzheimers Father Additional Family Medical History / Comment(s): Father from a work- related injury. fell 36 stories General Exam General appearance: alert, in no apparent distress Head exam: Present: atraumatic, normocephalic, normal inspection Eye exam: Present: normal appearance, PERRL, EOMI. Absent: scleral icterus, conjunctival injection, periorbital swelling ENT exam: Present: normal exam, mucous membranes moist Neck exam: Present: normal inspection. Absent: tenderness, meningismus, lymphadenopathy Respiratory exam: Present: normal lung sounds bilaterally. Absent: respiratory distress, wheezes, rales, rhonchi, stridor Cardiovascular Exam: Present: regular rate, normal rhythm, normal heart sounds. Absent: systolic murmur, diastolic murmur, rubs, gallop, clicks GI/Abdominal exam: Present: soft, normal bowel sounds. Absent: distended, ten derness (Negative suprapubic tenderness), guarding, rebound, rigid Extremities exam: Present: normal inspection, full ROM, normal capillary refill. Absent: tenderness, pedal edema, joint swelling, calf tenderness Back exam: Present: normal inspection. Absent: CVA tenderness (R), CVA tenderness (L) Neurological exam: Present: alert, oriented X3, CN II-XII intact Psychiatric exam: Present: normal affect, normal mood Skin exam: Present: warm, dry, intact, normal color. Absent: rash Course Vital Signs 06/25/24 06/25/24 16:49 20:15 Temperature 97.6 F 97.8 F Pulse Rate 96 71 Respiratory 22 18 Rate Blood Pressure 217/90 154/79 O2 Sat by Pulse 97 98 Oximetry Procedures - Catheter Insertion (Urinary) Indications: to alleviate urinary retention Prophylactic Antibiotics Given: No Bladder Scan/US before Catheterization: Yes Estimated Amount of Urine (mls): 265 (256 mL postvoid) Type of Catheter Inserted: rubber Results: successfully catheterized-immediate flow Patient Tolerated Procedure: well, no complications Complications: none Medical Decision Making - Medical Decision Making Was pt. sent in by a medical professional or institution (, PA, SLEEVE MAKER, urgent care, hospital, or long-term...) When possible be specific @ -No Did you speak to anyone other than the patient for history (EMS, parent, family, police, friend...)? What history was obtained from this source @ -No Did you review nursing and triage notes (agree or disagree)? Why? @ -I reviewed and agree with nursing and triage notes Were old charts reviewed (outside hosp., previous admission, EMS record, old EKG, old radiological studies, urgent care reports/EKG's, long-term records)? Report findings @ -No old charts were reviewed Differential Diagnosis (chest pain, altered mental status, abdominal pain women, abdominal pain men, vaginal bleeding, weakness, fever, dyspnea, syncope, headache, dizziness, GI bleed, back pain, seizure, CVA, palpatations, mental health, musculoskeletal)? @ -Differential Abdominal Pain Men: Appendicitis, cholecystitis, diverticulosis, ischemic bowel, pancreatitis, hepatitis, UTI, gastroenteritis, AAA, incarcerated hernia, bowel obstruction, constipation, inflammatory bowel, hepatitis, peptic ulcer disease, splenic infarction, perforated viscus, testicular torsion, this is not meant to be an a ll-inclusive list EKG interpreted by me (3pts min.). @ -Not done X-rays interpreted by me (1pt min.). @ -None done CT interpreted by me (1pt min.). @ -None done U/S interpreted by me (1pt. min.). @ -None done What testing was considered but not performed or refused? (CT, X-rays, U/S, labs)? Why? @ -None What meds were considered but not given or refused? Why? @ -None Did you discuss the management of the patient with other professionals (professionals i.e. , PA, SLEEVE MAKER, lab, RT, psych nurse, social staff worker, lawyers, teacher, deck officer, case planner)? Give summary @ -No Was smoking cessation discussed for >3mins.? @ -No Was critical care preformed (if so, how long)? @ -No Were there social determinants of health that impacted care today? How? (Homelessness, low income, unemployed, alcoholism, drug addiction, transportation, low edu. Level, literacy, decrease access to med. care, shelter, rehab)? @ -No Was there de-escalation of care discussed even if they declined (Discuss DNR or withdrawal of care, Hospice)? DNR status @ -No What co-morbidities impacted this encounter? (DM, HTN, Smoking, COPD, CAD, Cancer, CVA, ARF, Chemo, Hep., AIDS, mental health diagnosis, sleep apnea, morbid obesity)? @ -None Was patient admitted / discharged? Hospital course, mention meds given and route, prescriptions, significant lab abnormalities, going to OR and other pertinent info. @ -Bladder scan pre and postvoid performed. Straight catheter inserted with relief of obstruction. UA positive for WBC, RBC, leuk esterase and many urine yeast and WBC clumps. Patient states he is able to urinate without difficulty following straight catheterization. Diflucan regimen sent to patient's pharmacy. Return to ER if experiencing recurrent obstruction. Follow-up with PCP if symptoms do not improve or worsen. Discussed patient with Dr. Rodriguez. Undiagnosed new problem with uncertain prognosis? @ -No Drug Therapy requiring intensive monitoring for toxicity (Heparin, Nitro, Insuli n, Cardizem)? @ -No Were any procedures done? @ -Bladder scan pre and postvoid performed. Straight catheter inserted with relief of obstruction. See procedure note Diagnosis/symptom? @ -East cystitis, urethral obstruction Acute, or Chronic, or Acute on Chronic? @ -Acute Uncomplicated (without systemic symptoms) or Complicated (systemic symptoms)? @ -Uncomplicated Side effects of treatment? @ -No Exacerbation, Progression, or Severe Exacerbation? @ -No Poses a threat to life or bodily function? How? (Chest pain, [place], [place], pneumonia, PE, COPD, DKA, ARF, appy, cholecystitis, CVA, Diverticulitis, Homicidal, Suicidal, threat to staff... and all critical care pts) @ -No - Lab Data Lab Results 06/25/24 Range/Units 18:10 Urine Color Yellow Urine Appearance Turbid (Clear) Urine pH 6.0 (5.0-8.0) Ur Specific [place] 1.012 (1.001-1.035) Urine Protein 2+ H (Negative) Urine Glucose (UA) Negative (Negative) Urine Ketones Negative (Negative) Urine Blood Small H (Negative) Urine Nitrite Negative (Negative) Urine Bilirubin Negative (Negative) Urine Urobilinogen <2.0 (<2.0) mg/dL Ur Leukocyte Esterase Large H (Negative) Urine RBC >182 H (0-5) /hpf Urine WBC >182 H (0-5) /hpf Urine WBC Clumps Many H (None) /hpf Urine Yeast (Budding) Many H (None) /hpf Disposition Clinical Impression: Yeast cystitis, Acute urethral obstruction Disposition: HOME SELF-CARE Condition: Good Instructions (If sedation given, give patient instructions): Urinary Retention in Men (ED), Urinary Tract Infection in Men (ED) Additional Instructions: Increase water intake. Follow-up with PCP/urology for any ongoing or worsening symptoms. Prescriptions: Fluconazole 200 mg PO DAILY #14 tab Is patient prescribed a controlled substance at d/c from ED?: No Referrals: Theodora Poole MD [Primary Care Provider] - 1-2 days Flavio Jones MD [STAFF PHYSICIAN] - 1-2 days Time of Disposition: 19:14
[2024-06-25 18:42] LABS: Appearance,Urine Turbid (Clear); Bilirubin,Urine Negative (Negative); Blood,Urine Small (Negative); Budding Yeast,Urine Many /hpf; Color,Urine Yellow; Glucose,Urine (UA) Negative (Negative); Ketones,Urine Negative (Negative); Leukocyte Esterase,Urine Large (Negative); Nitrite,Urine Negative (Negative); Protein,Urine 2+ (Negative); RBC,Urine >182 /hpf (0-5); Urobilinogen,Urine <2.0 mg/dL (<2.0); WBC,Urine >182 /hpf (0-5)
[2024-06-25 18:57] LABS: Specific Gravity,Urine 1.012 (1.001-1.035)
[2024-06-25 20:16] VITALS: BP 154/79; PULSE 71; RESP 18; TEMP 97.8
== END 2024-06-25 20:16 | disposition home or self-care (01) ==
LOC: EC 16:30
DX: B37.41 Candidal cystitis and urethritis (principal); N36.8 Other specified disorders of urethra; F17.200 Nicotine dependence, unspecified, uncomplicated; Z91.030 Bee allergy status; Z91.011 Allergy to milk products
CPT/HCPCS: 51702; 51798; 81001; 87086; 99284